=== PATIENT | male | born 1960 | race Caucasian/White ===

== ENCOUNTER 2021-05-11 05:22 | Inpatient (IN) ==
--- NOTE | 2021-04-20 16:56 | Anesthesiology Consultation ---
Date of Service April 20, 2021 Assessment & Plan (1) Encounter for pre-operative examination: Chart Review Chart Review: Acceptable Risk for Surgery (pending preop Covid testing resutls ) and Patient NOT seen in Pre Admission Testing - Check BSG AM DOS - Check coags AM DOS -Discussed with Dr. Radford- patient follows routinely with cardio and vascular- no acute issues. Had recent ECHO 2020 and cardiac cath in 2019 that showed no significant changes. Patient may proceed with surgery from anesthesia standpoint Per nursing assessment 04/20/2021, patient denies any recent travel. No known Covid infection in the past 90 days. Patient vaccinated for Covid. No known Covid positive contacts or Covid related symptoms. Preop Covid testing scheduled 04/26/21 at [place]= will await results Last seen by cardiology 12/22/2020 = seen for follow-uppatient with history of CAD and ischemic cardiomyopathy. Also with ascending aortic dilation/dilation aortic root. Stable cardiac symptoms. Continue current medications. Patient on appropriate medical therapies including ASA, Plavix (for venous stents), and Xarelto for anticoagulation due to DVT (has since changed to Coumadin). Anastrozole Bumex for CHFshe appears euvolemic after recent titration of diuretic. Also on carvedilol and statin. Repeat echocardiogram in 1 year. BP controlled. Last seen by vascular surgery 10/29/2020 = patient had placement of right common iliac venous stent 10/01/2020 to prevent the previously placed venous stent from occluding. S/P bilateral CIV stenting ([id number]), and REIV stenting ([id number]) 08/2019 in [place]. Follow-up in 1 year with CTV. Continue anticoagulation. Will need lifelong anticoagulation. Advised zipper compression. Given information on lymphedema clinic to obtain compression garments. History Surgery Operation Date: 04/29/21 09:55 Proposed Procedures p Open Removal of Infected Mesh, Open Ventral Hernia Repair with Ibiological Mesh, Surgery as Needed - Tavares Tejeda, Height/Weight Height: 6 ft 6 in Weight: 168.736 kg Allergies Allergy/AdvReac Type Severity Reaction Status Date / Time piperacillin [From Zosyn] Allergy fever and Verified 04/20/21 14:39 chills tazobactam [From Zosyn] Allergy fever and Verified 04/20/21 14:39 chills Medications Home Medications Medication Instructions Recorded Confirmed Last Taken atorvastatin 80 mg tablet 80 mg PO QAM 03/25/21 04/20/21 Unknown carvedilol 25 mg tablet 25 mg PO BID 03/25/21 04/20/21 Unknown clopidogrel 75 mg tablet 75 mg PO QAM 03/25/21 04/20/21 Unknown ferrous sulfate 325 mg (65 mg 325 mg PO BID 03/25/21 04/20/21 Unknown iron) tablet (Feosol) finasteride 1 mg tablet 1 mg PO QAM 03/25/21 04/20/21 Unknown losartan 50 mg tablet 50 mg PO QAM 03/25/21 04/20/21 Unknown ltbufwan-nna-pqgkc acid 0.4 1 tab PO DAILY 03/25/21 04/20/21 Unknown mg-lycopene 300 mcg-lutein 250 mcg tablet (Centrum Silver) potassium chloride 10 mEq 10 meq PO QAM 03/25/21 04/20/21 Unknown capsule,extended release tamsulosin 0.4 mg capsule 0.4 mg PO QAM 03/25/21 04/20/21 Unknown bumetanide 1 mg tablet 1.5 mg PO QAM tab 04/07/21 04/20/21 Unknown doxycycline hyclate 100 mg capsule 100 mg PO BID 14 Days #28 cap 04/07/21 04/20/21 Unknown gabapentin 300 mg capsule 300 mg PO BID cap 04/07/21 04/20/21 Unknown levothyroxine 200 mcg capsule 200 mcg PO QAM 04/07/21 04/20/21 Unknown levothyroxine 25 mcg capsule 25 mcg PO QAM 04/07/21 04/20/21 Unknown nystatin 100,000 unit/gram topical 1 applic TOPICAL DAILY #60 g 04/07/2104/20 Unknown powder warfarin 2.5 mg tablet 2.5 mg PO DAILY tab 04/07/21 04/20/21 Unknown Past Medical History Medical History (Updated 04/21/21 @ 09:46 by Siobhan Allred PA-C) Borderline type 2 diabetes mellitus Hgb A1C 6.5 on 02/26/21 BPH (benign prostatic hyperplasia) CAD (coronary artery disease) Had cardiac cath- was told he had old IN with small vessel (2014) and medication management recommended per cardio records Did have repeat cardiac cath 2020 that showed no significant changes from 2015- medical management still recommended CHF (congestive heart failure) Ischemic CM per records EF ranging 30-45% since 2013 EF improved to 50-54% with 2020 ECHO Chronic kidney disease Stage 3 H/O deep venous thrombosis 2017 (complication from immobility from surgery)-- bilateral LE and takes warfarin Hyperlipemia Per records Hypertension Per records Hypothyroidism JOSE on CPAP Per records Paralysis Temporary to right side secondary to cervical spine surgery in 2017 Post op complications included decutitus ulcer, colostomy (later reversed), immobility caused right LE DVT (IVC filter placed- later removed) PVD (peripheral vascular disease) S/p right common iliac [place] venous stent 10/01/20 S/P bilateral CIV stenting ([id number]), and REIV stenting ([id number]) 08/2019 in [place] Past Family History Family History Mother Clotting disorder Diabetes Hypertension Father Diabetes Hypertension Other Coronary heart disease Past Surgical History Surgical History H/O colonoscopy 2019 History of colostomy 2017 - due to ulcer History of colostomy reversal 2019 History of gastric surgery hx of vertical banded gastroplasty History of incisional hernia repair Incisional hernia repair with Ventrio mesh 15x25.7cm and Biologic integra 10x12.5cm as a layered mesh Ventrio first, then Integra. (2019) History of intravascular stent placement 2017 dvt IVC filter and then filter was removed Previous back surgery 2017 discectomy fusion one internal and then posterior fusion Social History Smoking Status: Never smoker Do You Dip or Chew Tobacco: No Hx Alcohol Use: Yes alcohol intake frequency: holidays/special occasions only Hx Substance Use: No substance use type: does not use Testing Laboratory Results 03/16/21= WBC: 9.13 H/H: 11.9/38.1 PLATELETS: 230 SODIUM: 141 POTASSIUM: 4.2 CHLORIDE: 103 CO2: 27 BUN: 16 CREATININE: 1.5 GLUCOSE: 106 GFR: 51.1 Electrocardiogram Date: 08/27/20 Sinus rhythm with occasional PVCs at 63 bpm. Otherwise normal EKG per cardio. Echocardiogram Date: 10/06/20 EF: 50-54% LV Function: normal RWMA: + none Other Findings: + LVH (Moderate/concentric) and + diastolic dysfunction (Grade 1) LV cavity is mildly dilated. RV poorly visualizedhoweverappears mildly dilated in limited views. RV systolic function is normal. Poorly visualized valvular anatomy without significant stenosis or regurgitation. Aortic root moderately enlarged at 4.5 cm. Ascending aorta is mildly enlarged at 4.2 cm. Cardiac Catheterization Date: 10/30/19 LVEF 35-40%. Moderate diffuse hypokinesis of left ventricle. 100% stenosis of mid vessel lesion of left circumflex. Cath not significantly changed from 2015. LAD, ramus and RCA show no significant issues. Ectasia of distal left main. Distal circumflex is occluded as as it was in 2015CAD does not explain the cardiomyopathywe will plan for medical therapy for CHF.
[~2021-05-11 05:22] MED LIST: CLINDAMYCIN IV SCH; DEXTROSE 5% IV SCH; GENERAL ORDER PROBLEM SCH; HEPARIN SOD 5,000 UNIT/0.5 ML VIAL SQ SCH; LR 15ML/HR IV SCH
[2021-05-11] MEDS ORDERED: HEPARIN SOD 5,000 UNIT/0.5 ML VIAL SC SCH (06:00)
[2021-05-11] MEDS ORDERED: DEXTROSE 5% IV SCH (06:00)
[2021-05-11] MEDS ORDERED: CLINDAMYCIN IV SCH (06:00)
[2021-05-11] MEDS ORDERED: LR 15ML/HR IV SCH (06:00)
[2021-05-11 06:12] LABS: INR 1.1 (0.9-1.1); Partial Thromboplastin Ratio 1.1; Prothrombin Time 10.7 Seconds (9.0-12.0)
[2021-05-11] MEDS ORDERED: ROCURONIUM BROMIDE 10 MG/ML 5 ML VIAL IV ONE ×6 (06:50→08:47)
[2021-05-11] MEDS ORDERED: ONDANSETRON INJ 2 MG/ML 2 ML VIAL ONE (06:50)
[2021-05-11] MEDS ORDERED: LIDOCAINE 2% 2 ML VIAL/AMP(20MG/ML) INFIL ONE (06:50)
[2021-05-11] MEDS ORDERED: fentaNYL citrate 100 MCG/2 ML VIAL ONE (06:50)
[2021-05-11] MEDS ORDERED: PROPOFOL IV EMULSION 10 MG/ML 20 ML VIAL IV ONE (06:50)
[2021-05-11] MEDS ORDERED: KETAMINE 50 MG/5 ML SYRINGE ONE (06:51)
[2021-05-11] MEDS ORDERED: KETOROLAC 30 MG/ML VIAL IV PRN ×2 (07:05→12:59)
[2021-05-11] MEDS ORDERED: ONDANSETRON INJ 2 MG/ML 2 ML VIAL IV PRN (07:05)
[2021-05-11] MEDS ORDERED: ATROPINE SULFATE 0.1 MG/ML 10ML SYR IV PRN (07:05)
--- NOTE | 2021-05-11 07:05 | History & Physical Report ---
Date of Service May 11, 2021 Assessment & Plan (1) Infected prosthetic mesh of abdominal wall: Plan: Clearly this needs to be surgically explanted and an abdominal wall reconstruction. He is extremely high risk because of his medical comorbidities and we discussed this at length. He fully understands this. Risk would include bleeding, infection, injury to another structures such as bowel, recurrent hernia, DVT, PE, WA, CVA etc. Following our discussion I answered all of his questions. We will proceed today with explant of old mesh with abdominal wall reconstruction possible component separation. Encounter type: initial encounter Qualified Code(s): T85.79XA - Infection and inflammatory reaction due to other internal prosthetic devices, implants and grafts, initial encounter (2) Diabetes: (3) Ischemic cardiomyopathy: (4) Morbid obesity: History of Present Illness Primary Care Provider: Amparo Fairchild MD Bobby has had somewhat of a blade surgical medical course of the last several years. He had complications from a spine surgery several years ago in [place]. Ultimately this required a sacral ulcer requiring a colostomy and subsequent reversal. He then had a large incisional hernia that was repaired with mesh in [place] as well. 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 It is failed conservative management and he is here today for definitive surgical intervention. There is been no changes in his health since I had last seen him in the office in March. Allergies Allergy/AdvReac Type Severity Reaction Status Date / Time piperacillin [From Zosyn] Allergy fever and Verified 05/11/21 05:46 chills tazobactam [From Zosyn] Allergy fever and Verified 05/11/21 05:46 chills Home Medications Medication Instructions Recorded Confirmed Type atorvastatin 80 mg tablet 80 mg PO QAM 03/25/21 05/11/21 History carvedilol 25 mg tablet 25 mg PO BID 03/25/21 05/11/21 History clopidogrel 75 mg tablet 75 mg PO QAM 03/25/21 05/11/21 History ferrous sulfate 325 mg (65 mg 325 mg PO BID 03/25/21 05/11/21 History iron) tablet (Feosol) finasteride 1 mg tablet 1 mg PO QAM 03/25/21 05/11/21 History losartan 50 mg tablet 50 mg PO QAM 03/25/21 05/11/21 History utioqcdx-ifz-dmuup acid 0.4 1 tab PO DAILY 03/25/21 05/11/21 History mg-lycopene 300 mcg-lutein 250 mcg tablet (Centrum Silver) potassium chloride 10 mEq 10 meq PO QAM 03/25/21 05/11/21 History capsule,extended release tamsulosin 0.4 mg capsule 0.4 mg PO QAM 03/25/21 05/11/21 History bumetanide 1 mg tablet 1.5 mg PO QAM tab 04/07/21 05/11/21 History doxycycline hyclate 100 mg capsule 100 mg PO BID 14 Days #28 cap 04/07/21 05/11/21 Rx gabapentin 300 mg capsule 300 mg PO BID cap 04/07/21 05/11/21 History levothyroxine 200 mcg capsule 200 mcg PO QAM 04/07/21 05/11/21 History levothyroxine 25 mcg capsule 25 mcg PO QAM 04/07/21 05/11/21 History nystatin 100,000 unit/gram topical 1 applic TOPICAL DAILY #60 g 04/07/21 05/11/21 Rx powder warfarin 2.5 mg tablet 2.5 mg PO DAILY tab 04/07/21 05/11/21 History enoxaparin 150 mg/mL subcutaneous 150 mg SUBCUT Q12H 05/11/21 05/11/21 History syringe (Lovenox) Past Med/Surg History Medical History Borderline type 2 diabetes mellitus Hgb A1C 6.5 on 02/26/21 BPH (benign prostatic hyperplasia) CAD (coronary artery disease) Had cardiac cath- was told he had old [place] with small vessel (2014) and medication management recommended per cardio records Did have repeat cardiac cath 2019 that showed no significant changes from 2014- medical management still recommended CHF (congestive heart failure) Ischemic CM per records EF ranging 30-45% since 2013 EF improved to 50-54% with 2020 ECHO Chronic kidney disease Stage 3 H/O deep venous thrombosis 2016 (complication from immobility from surgery)-- bilateral LE and takes warfarin Hyperlipemia Per records Hypertension Per records Hypothyroidism JOSE on CPAP Per records Paralysis Temporary to right side secondary to cervical spine surgery in 2017 Post op complications included decutitus ulcer, colostomy (later reversed), immobility caused right LE DVT (IVC filter placed- later removed) PVD (peripheral vascular disease) S/p right common iliac [place] venous stent 10/01/20 S/P bilateral CIV stenting ([id number]), and REIV stenting ([id number] mm) 08/2019 in [place] Surgical History H/O colonoscopy 2018 History of colostomy 2017 - due to ulcer History of colostomy reversal 2018 History of gastric surgery hx of vertical banded gastroplasty History of incisional hernia repair Incisional hernia repair with Ventrio mesh 15x25.7cm and Biologic integra 10x12.5cm as a layered mesh Ventrio first, then Integra. (2019) History of intravascular stent placement 2017 dvt IVC filter and then filter was removed Previous back surgery 2017 discectomy fusion one internal and then posterior fusion Family History Mother Clotting disorder Diabetes Hypertension Father Diabetes Hypertension Other Coronary heart disease Social History (Updated 04/07/21 @ 09:31 by Angela Tafoya RN) Smoking Status: Never smoker Second Hand Exposure: No; Do You Dip or Chew Tobacco: No; Tobacco Cessation Education Requested by Patient: No Hx Alcohol Use: No Hx Substance Use: No Preferred Language: Yakut Communication Ability: Effective 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 Required: No Beliefs That Will Affect Care: None Current Living Situation: Family current occupational status: disabled How many Children do You have: 0 Other Information That Helps Us Care for You: No Feels Safe at Home: Yes Safety Concerns: Feels Safe At This Time Sunscreen Use: No Review of Systems All systems reviewed & are unremarkable except as noted in HPI & below Physical Exam Constitutional: WD/WN, vitals as above no acute distress and not ill appearing Eyes: PERRL, conjunctivae normal, anicteric sclerae EOM intact bilaterally ENMT: external ear and nose normal, oropharynx normal Ears: no hearing impairment Neck: trachea midline, no thyromegaly Respiratory: normal respiratory effort; no respiratory distress and does not use accessory muscles Cardiovascular: Rate/Rhythm: regular rate and regular rhythm Gastrointestinal (Abdomen): Morbidly obese. Soft. Nontender. Central fistulous tract with bloody drainage. Small amount of surrounding cellulitis consistent with a yeast dermatitis. Large midline incision. Skin: no rashes, warm and dry Psychiatric: Orientation: alert, oriented x 3 and cooperative Results & Data ([place]) Vital Signs (Past 12 Hours) Vital Signs Temp Pulse Resp BP Pulse Ox 05/11/21 05:49 37.3 C 66 18 129/79 94
[2021-05-11] MEDS ORDERED: HYDROmorphone INJ 2 MG/ML SYR/VIAL ONE (07:42)
[2021-05-11] MEDS ORDERED: ePHEDrine sulfate 50 MG/ML SYR ONE (08:47)
[2021-05-11] MEDS ORDERED: ePHEDrine sulfate 50 MG/ML AMP ONE (09:17)
[2021-05-11] MEDS ORDERED: TISSEEL FIBRIN SEALANT 10ML TOP ONE (09:17)
[2021-05-11] MEDS ORDERED: NEOSTIGMINE METHYLSULFATE 1 MG/ML 10ML VIAL ONE (11:11)
[2021-05-11] MEDS ORDERED: GLYCOPYRROLATE 0.2 MG/ML VIAL ONE (11:11)
--- NOTE | 2021-05-11 11:18 | Operative Report ---
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 After successful intubation a Steele catheter was placed. The abdomen was shaved and sterilely prepped and draped in usual fashion. I began with a 10 blade scalpel and made an elliptical incision around his prior midline incision. This went from the subxiphoid region around his umbilicus and down to the suprapubic region. We then carried this incision down using cautery traction and countertraction. We readily encountered his onlay mesh which was secured with Prolene sutures. It was a rather tedious dissection but we were able to continue to use traction/ countertraction to remove the skin/old scar as well as old Prolene sutures and onlay mesh. Once we had this off we passed this to the back table. At the superior pole of his underlay mesh we were able to gently elevate the peritoneum and enter the abdominal cavity. At the superior pole there were a fair amount of adhesions to the undersurface of the mesh. These primarily involve the omentum and small bowel. We used sharp scissor lysis and blunt finger fractionation to take down the small bowel. There was 1 loop that was tightly adhesed necessitating cutting a portion of the serosa. I then oversewed this serosa using 3-0 silk. The distal portion of the underlay mesh did not have as many adhesions. It was still a tedious dissection using traction countertraction, blunt finger fractionation and small amounts of cautery and sharp scissor lysis. Eventually we were able to take down all of the bowel adhesions as well as omentum. We essentially performed a component separation of the abdominal musculature as we went. We had to take a portion of the fascia/abdominal wall which was tightly adhesed to the mesh. Eventually we were able to get the underlay mesh as well as securing sutures which were 0 Prolene removed in 1 large piece. We were able to use a small amounts of cautery and blunt dissection to separate the rectus from the obliques in order to be able to obtain a primary closure. We felt this would be the best technique considering the adhesions to the undersurface of the fascia. Once we performed the component separation we then thoroughly irrigated the abdomen and wound. I placed some #1 PDS internal retention sutures. There were 4 of these total. Once I had the retention sutures secured we then used #1 PDS in simple interrupted fashion to primarily close the large defect. Once the fascia was closed we again thoroughly irrigated soft tissue and the anterior portion of the fascia. We then used a 20 cm x 20 cm absorbable Ovitex mesh as an onlay. It was secured with interrupted #1 PDS sutures. Once we had this secured we had good overlap for several centimeters in all directions. There was also adequate hemostasis. 1 final irrigation was performed. Tisseel sealant was sprayed on all raw surfaces to help prevent hematoma and seroma formation. Once this dried we used a 19 Ricardo drain one on either side brought them out through separate stab incisions in the lower portion of the abdomen one on the right one on the left. These were secured to the skin using 2-0 nylon. The soft tissue was then closed using 0 Vicryl deep layers 2-0 Vicryl for mid layers and skin nikita for the skin. A silver dressing gauze ABD and tape were applied as well as an abd ominal binder. The patient was awakened extubated and transferred recovery in stable condition. My physician internal medicine physician assistant was instrumental through the entire procedure assisting with prepping the patient retraction throughout the tedious dissection fascial closure mesh onlay wound closure and dressing placement. I attest to the content of the Intraoperative Record and any orders documented therein. Any exceptions are noted below.
[2021-05-11] MEDS: HYDROmorphone INJ 1 MG/ML SYRINGE IV PRN ×6 (11:26→12:16)
--- NOTE | 2021-05-11 11:59 | Anesthesiology Progress Note ---
Date of Service May 11, 2021 Anesthesia Post Procedure Vital Signs Vital Signs: Temp Pulse Resp BP Pulse Ox 05/11/21 11:50 54 L 17 122/68 96 05/11/21 11:40 52 L 12 123/71 96 05/11/21 11:30 55 L 16 128/68 90 05/11/21 11:20 57 L 18 118/74 99 05/11/21 11:10 58 L 12 116/60 98 05/11/21 11:04 36.8 C 61 14 122/62 100 05/11/21 05:49 37.3 C 66 18 129/79 94 Pain Intensity Abdomen: Pain Intensity: 3 Transfer of Care Handoff Completed per policy Notes Mental Status: alert / awake / arousable Patient Amnestic to Procedure: Yes Nausea / Vomiting: adequately controlled Pain: adequately controlled Airway Patency, RR, SpO2: stable & adequate BP & HR: stable & adequate Hydration State: stable & adequate Anesthetic Complications: no major complications apparent
[2021-05-11] MEDS ORDERED: HYDROmorphone PCA 30 MG/30 ML IV PRN (12:59)
[2021-05-11] MEDS ORDERED: DEXTROSE 50% 50 ML SYRINGE IV PRN (12:59)
[2021-05-11] MEDS ORDERED: NALOXONE HCL 0.4 MG/1 ML VIAL/CARP IV PRN (12:59)
[2021-05-11] MEDS ORDERED: GLUCAGON FOR INJ 1 MG VIAL SQ PRN (12:59)
[2021-05-11] MEDS ORDERED: GLUCOSE 40% GEL 15 GM TUBE PO PRN (12:59)
[2021-05-11] MEDS ORDERED: LORazepam 0.5 MG/1 ML VIAL IV PRN (12:59)
[2021-05-11] MEDS ORDERED: GLUCOSE 10 TABS/TUBE PO PRN (12:59)
[2021-05-11] MEDS ORDERED: CARBOHYDRATES FOR HYPOGLYCEMIA PO PRN (12:59)
[2021-05-11] MEDS: NSS + 20MEQ KCL 20 MEQ/1,000 ML BAG IV SCH ×2 (13:35→22:25)
[2021-05-11] MEDS: ACETAMINOPHEN 1,000 MG/100 ML VIAL IV SCH ×2 (14:17→22:01)
[2021-05-11] MEDS: FLUCONAZOLE 200 MG/100 ML BAG IV SCH (14:50)
--- NOTE | 2021-05-11 15:17 | Consultation ---
Date of Consultation May 11, 2021 Assessment & Plan (1) Infected prosthetic mesh of abdominal wall: This is a 60yo M with a PMH of CAD, history of [place], ischemic cardiomyopathy, hypothyroidism, hypertension, CKD 3, BPH, recently diagnosed type 2 diabetes is diet-controlled, JOSE on CPAP, chronic bilateral lower extremity DVTs on Coumadin and other medical problems as below who is POD#0 s/p infected abdominal Wall Exploration with Explant of Old Mesh, Component Separation, Abdominal Wall Reconstruction with Biological Mesh by Dr. Tejeda. Per general surgery for pain control, wound care, diet and activities Holding Lovenox and coumadin for now, plan to resume both tomorrow per disc ussion with Bill (2) Diabetes mellitus, type II: Recent a1c 6.5 in February 2021, diet controlled SSI while in-patient [facility] AC HS (3) Chronic deep vein thrombosis (DVT): Holding Lovenox and coumadin for now, plan to resume both tomorrow per discussion with Bill (4) CHF (congestive heart failure): History of [place], ischemic cardiomyopathy Holding Bumex dose for tomorrow morning Strict I&Os, daily weight, low sodium diet Reassess volume status in AM (5) CAD (coronary artery disease): Stable Continue carvedilol, statin Plavix held in postop setting (6) Hypothyroidism: Continue levothyroxine (7) Iliac vein stenosis, left: Plavix held in postop setting. Per gen surg to resume when surgically appropriate. Continue statin (8) JOSE on CPAP: CPAP HS PCP: Devorah Dispo: Admitted to med/surg, per ortho Patient seen in collaboration with Dr. Patiño. Please see addendum. Supervising Physician Co-Signing Physician Notes Patient is a 60-year-old male with history of coronary artery disease, CKD stage III, diabetes mellitus, obstructive sleep apnea and other medical problems was consulted for postop medical management after having abdominal wall exploration with explant of old mesh, component separation, abdominal wall reconstruction with biological mesh placement and electrolysis by today. Patient states having some abdominal discomfort at surgical site but otherwise feels well. Denies any chest pain, shortness of breath, dizziness, nausea. Offers no other complaints. On exam patient is obese, no apparent distress, normocephalic atraumatic, EOMI, normal breath sounds, clear to auscultation, S1-S2, no murmur, trace pedal edema, abdomen soft,+ mild tenderness,+ abdominal binder, could not appreciate bowel sounds through the binder, alert, awake, oriented, grossly no focal deficits. Patient is consulted for postop medical management. Wound care, pain control, diet as per primary team. Monitor for postop anemia. Continue PT OT when appropriate. Hold diuretics for today. Monitor volume status and resume diuretics as able. Agree with insulin therapy while hospitalized to manage diabetes mellitus. H/O DVT: Plan to hold Lovenox and Coumadin for today and resume tomorrow as recommended by surgery. I personally reviewed the record. Patient is interviewed and examined at bedside. Patient's care is coordinated with Manjula Marcus PA-C. Please refer to the documentation above for details of patient's presentation and for discussion of other issues. History of Present Illness Reason for Consultation: post op med mgmt Attending Physician: Tavares Tejeda, DO History of Present Illness This is a 60yo M with a PMH of CAD, history of [place], ischemic cardiomyopathy, hypothyroidism, hypertension, CKD 3, BPH, recently diagnosed type 2 diabetes is diet-controlled, JOSE on CPAP, chronic bilateral lo wer extremity DVTs on Coumadin and other medical problems as below who is POD#0 s/p infected abdominal Wall Exploration with Explant of Old Mesh, Component Separation, Abdominal Wall Reconstruction with Biological Mesh by Dr. Tejeda. Patient is feeling well postoperatively. Endorses minimal surgical site discomfort. No fever, chills, nausea or vomiting. Has not yet tried clears at bedside. No headache, lightheadedness, chest pain, shortness of breath, dysuria, diarrhea or constipation. Plavix and Coumadin held preoperatively. Received 2-1/2 days of Lovenox bridging with last dose yesterday morning. Diabetes is diet controlled with most recent A1c of 6.5 in February 2021. Brought his own CPAP to use at bedtime. Receives primary care from Dr. Fairchild. Allergies Allergy/AdvReac Type Severity Reaction Status Date / Time piperacillin [From Zosyn] Allergy Mild fever and Verified 05/11/21 13:27 chills tazobactam [From Zosyn] Allergy Mild fever and Verified 05/11/21 13:27 chills Home Medications Medication Instructions Recorded Confirmed Type atorvastatin 80 mg tablet 80 mg PO QAM 03/25/21 05/11/21 History carvedilol 25 mg tablet 25 mg PO BID 03/25/21 05/11/21 History clopidogrel 75 mg tablet 75 mg PO QAM 03/25/21 05/11/21 History ferrous sulfate 325 mg (65 mg 325 mg PO TID 03/25/21 05/11/21 History iron) tablet (Feosol) losartan 50 mg tablet 50 mg PO QAM 03/25/21 05/11/21 History kafpubrb-sff-kiayt acid 0.4 1 tab PO DAILY 03/25/21 05/11/21 History mg-lycopene 300 mcg-lutein 250 mcg tablet (Centrum Silver) potassium chloride 10 mEq 10 meq PO QAM 03/25/21 05/11/21 History capsule,extended release tamsulosin 0.4 mg capsule 0.4 mg PO QAM 03/25/21 05/11/21 History bumetanide 1 mg tablet 1.5 mg PO QAM tab 04/07/21 05/11/21 History doxycycline hyclate 100 mg capsule 100 mg PO BID 14 Days #28 cap 04/07/21 05/11/21 Rx gabapentin 300 mg capsule 300 mg PO BID cap 04/07/21 05/11/21 History levothyroxine 200 mcg capsule 200 mcg PO QAM 04/07/21 05/11/21 History nystatin 100,000 unit/gram topical 1 applic TOPICAL DAILY #60 g 04/07/21 05/11/21 Rx powder warfarin 2.5 mg tablet 2.5 mg PO DAILY tab 04/07/21 05/11/21 History enoxaparin 150 mg/mL subcutaneous 150 mg SUBCUT Q12H 05/11/21 05/11/21 History syringe (Lovenox) finasteride 5 mg tablet 5 mg PO DAILY 05/11/21 05/11/21 History levothyroxine 50 mcg tablet 50 mcg PO DAILY 05/11/21 05/11/21 History methocarbamol 500 mg tablet 500 mg PO DAILY PRN 05/11/21 05/11/21 History Patient History Medical History (Updated 05/11/21 @ 15:39 by Manjula Marcus PA-C) BPH (benign prostatic hyperplasia) CAD (coronary artery disease) Had cardiac cath- was told he had old WA with small vessel (2014) and medication management recommended per cardio records Did have repeat cardiac cath 2020 that showed no significant changes from 2015- medical management still recommended CHF (congestive heart failure) Ischemic CM per records EF ranging 30-45% since 2013 EF improved to 50-54% with 2020 ECHO Chronic deep vein thrombosis (DVT) Chronic kidney disease Stage 3 Diabetes mellitus, type II Dyslipidemia H/O deep venous thrombosis 2016 (complication from immobility from surgery)-- bilateral LE and takes warfarin Hypertension Per records Hypothyroidism JOSE on CPAP Per records 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 Tejeda 05-11-2021 H/O colonoscopy 2018 History of colostomy 2017 - due to ulcer History of colostomy reversal 2019 History of gastric surgery hx of vertical banded gastroplasty History of incisional hernia repair Incisional hernia repair with Ventrio mesh 15x25.7cm and Biologic integra 10x12.5cm as a layered mesh Ventrio first, then Integra. (2019) History of intravascular stent placement 2017 dvt IVC filter and then filter was removed Previous back surgery 2017 discectomy fusion one internal and then posterior fusion Family History Mother Clotting disorder Diabetes Hypertension Father Diabetes Hypertension Other Coronary heart disease Social History Smoking Status: Never smoker Second Hand Exposure: No; Do You Dip or Chew Tobacco: No; Tobacco Cessation Education Requested by Patient: No Hx Alcohol Use: No Hx Substance Use: No Preferred Language: Syrian Communication Ability: Effective Sql Engineer Required: No Beliefs That Will Affect Care: None Current Living Situation: Family current occupational status: disabled How many Children do You have: 0 Other Information That Helps Us Care for You: No Feels Safe at Home: Yes Safety Concerns: Feels Safe At This Time Sunscreen Use: No Assistive Devices: CPAP and Walker Review of Systems Review of Systems: At least ten systems reviewed and negative except as noted in the HPI. Physical Exam Physical Exam: General Appearance: WD/WN, vitals as above, NAD, sitting up in bed, pleasant, conversing easily Head: normocephalic, atraumatic Eyes: normal inspection, PERRL, conjunctivae normal, anicteric sclerae ENT: external ear and nose normal, oropharynx normal Neck: normal visual inspection, trachea midline, no thyromegaly Respiratory: normal respiratory effort, lungs clear to auscultation, no wheeze, rales, rhonchi. No accessory muscle use Cardiovascular: regular rate, rhythm, no murmur, normal peripheral pulses, no BLE edema. Vessels: no JVD Chest: normal inspection of chest Abdomen/GI: normal bowel sounds, soft, abdominal binder in place, drain visualized, incisional TTP, no hepatosplenomegaly Extremities/Musculoskeletal: no cyanosis or clubbing, extremities motor strength 5/5 Neurologic: PERRL, EOMI, accommodation nl, no face palsy, no dysarthria, CN's II-XI intact bilaterally and moves all extremities Psychiatric: A+Ox3, euthymic affect Skin: no rashes, normal color, warm/dry Results & Data ([facility]) Vital Signs (Past 12 Hours) Vital Signs Temp Pulse Resp BP BP Pulse Ox 05/11/21 13:55 36.4 C L 56 L 17 129/70 94 05/11/21 13:25 36.6 C 59 L 17 131/66 94 05/11/21 12:55 37 C 56 L 18 131/71 95 05/11/21 12:40 57 L 19 122/68 94 05/11/21 12:30 50 L 12 123/65 94 05/11/21 12:20 55 L 15 121/66 95 05/11/21 12:10 53 L 16 127/70 95 05/11/21 12:00 36.5 C 56 L 15 126/76 96 05/11/21 11:50 54 L 17 122/68 96 05/11/21 11:40 52 L 12 123/71 96 05/11/21 11:30 55 L 16 128/68 90 05/11/21 11:20 57 L 18 118/74 99 05/11/21 11:10 58 L 12 116/60 98 05/11/21 11:04 36.8 C 61 14 122/62 100 05/11/21 05:49 37.3 C 66 18 129/79 94 (1) Infected prosthetic mesh of abdominal wall Encounter type: initial encounter Qualified Code(s): T85.79XA - Infection and inflammatory reaction due to other internal prosthetic devices, implants and grafts, initial encounter
[2021-05-11] MEDS: CLINDAMYCIN 900 MG in DEXTROSE 5% 50 ML IV SCH (16:14)
[2021-05-11] MEDS: WARFARIN SOD 2.5 MG TAB PO SCH (16:52)
[2021-05-11] MEDS: INSULIN ASPART 100 UNITS/ML 3 ML PEN SC SCH ×3 (18:07→23:08)
[2021-05-11] MEDS: SODIUM CHLORIDE 0.9% 1000ML 1,000 ML IV SCH (18:07)
[2021-05-11] MEDS ORDERED: COUGH DROP (SUGAR FREE) LOZ 24 LOZ/1 BOX BUCCAL PRN (18:23)
[2021-05-11] MEDS: GABAPENTIN 300 MG CAP PO SCH (20:31)
[2021-05-11] MEDS: carvediloL 25 MG TAB PO SCH (20:31)
[2021-05-12] MEDS: CLINDAMYCIN 900 MG in DEXTROSE 5% 50 ML IV SCH ×4 (00:22→23:37)
[2021-05-12] MEDS: NSS + 20MEQ KCL 20 MEQ/1,000 ML BAG IV SCH ×2 (06:15→23:37)
[2021-05-12] MEDS: ACETAMINOPHEN 1,000 MG/100 ML VIAL IV SCH ×3 (06:15→22:29)
[2021-05-12] MEDS: LEVOTHYROXINE SODIUM 200 MCG TABLET PO SCH (06:20)
[2021-05-12] MEDS: LEVOTHYROXINE SODIUM 50 MCG TABLET PO SCH (06:20)
[2021-05-12] MEDS ORDERED: LEVOTHYROXINE SODIUM 50 MCG TABLET PO SCH (06:30)
[2021-05-12] MEDS ORDERED: LEVOTHYROXINE SODIUM 25 MCG TABLET PO SCH (06:30)
[2021-05-12 06:37] LABS: Hematocrit (blood only) 30.2 % (42-52); Hemoglobin 9.2 g/dL (14.0-18.0); Mean Corpuscular Hemoglobin 28.1 pg (25-34); Mean Corpuscular Hgb Conc 30.5 g/dL (32-36); Mean Corpuscular Volume 92.4 fL (80-100); Mean Platelet Volume 10.4 fL (7.4-10.4); Platelet Count 196 K/uL (130-400); RDW Coefficient of Variation 17.5 % (11.5-14.5); Red Blood Count 3.27 M/uL (4.7-6.1); White Blood Count 12.61 K/uL (4.8-10.8)
[2021-05-12 07:15] LABS: Albumin Level 2.6 gm/dl (3.4-5.0); BUN Creatinine Ratio 18.2 (10-20); Creatinine Clr Calc Pharmacy 115.6 ml/min; Est GFR (African American) 75.5 ml/min; Est GFR (Non-African American) 65.1 ml/min; Potassium 4.3 mmol/L (3.5-5.1)
[2021-05-12 07:25] LABS: Albumin Globulin Ratio 0.7 (0.9-2); Bilirubin,Total 0.5 mg/dl (0.2-1); Globulin 3.9 gm/dl (2.5-4.0); Thyroid Stimulating Hormone 0.776 uIu/ml (0.300-4.500); Total Protein 6.5 gm/dl (6.4-8.2)
[2021-05-12 07:31] LABS: Estimated Average Glucose 134 mg/dl; Hemoglobin A1C 6.3 % (4.5-5.6)
[2021-05-12] MEDS ORDERED: PNEUMOCOCCAL Polysaccharide Vaccine 25mcg/0.5mL vial/Syr IM ONE (07:45)
--- NOTE | 2021-05-12 08:27 | Surgery Progress Note ---
Date of Service May 12, 2021 Assessment & Plan (1) Infected prosthetic mesh of abdominal wall: Plan: POD 1 removal infected mesh, repair with biomesh seen with Nikhil Michelle can restart coumadin resume Lovenox advance diet decrease IVF cont IV abx already on Flomax from home, will continue to monitor retention as above. doing quite well. restart coumadin. will monitor LAINEY output and H/H prior to restarting plavix tomorrow. pain control adequate. Admission and Anticipated Discharge Date Admission Date: May 11, 2021 Subjective ambulated halls last night, tolerating clears, pain managed, straight cath last night Physical Exam Gastrointestinal (Abdomen): Inspection/Auscultation: + abdominal surgical incision (dressing intact) and + abdominal surgical drain present (LAINEY(1) 20 cc, LAINEY (2) 15cc) Results & Data ([facility]) Vital Signs (Past 12 Hours) Vital Signs Temp Pulse Resp BP Pulse Ox 05/12/21 08:18 36.6 C 60 16 98/68 L 96 05/12/21 03:30 36.8 C 53 L 18 101/59 L 94 05/11/21 23:52 37 C 62 18 104/60 92 05/11/21 20:29 94 H 14 122/75 95 PG Care Time/CCT Total # of Minutes Spent Total Time Spent with Patient: Total time spent is greater than 50% in coordination of care (as documented) at patient's floor/unit and/or counseling patient: Coding Level of Care Code None Diagnoses Infected prosthetic mesh of abdominal wall T85.79XA Encounter type: initial encounter (1) Infected prosthetic mesh of abdominal wall Encounter type: initial encounter Qualified Code(s): T85.79XA - Infection and inflammatory reaction due to other internal prosthetic devices, implants and grafts, initial encounter
[2021-05-12] MEDS: ATORVASTATIN 40 MG TAB PO SCH (08:38)
[2021-05-12] MEDS: carvediloL 25 MG TAB PO SCH ×2 (08:39→21:45)
[2021-05-12] MEDS: GABAPENTIN 300 MG CAP PO SCH ×2 (08:39→21:45)
[2021-05-12] MEDS: TAMSULOSIN HCL 0.4 MG CAP PO SCH (08:40)
[2021-05-12] MEDS: FINASTERIDE 5 MG TAB PO SCH (08:41)
[2021-05-12] MEDS ORDERED: BUMETANIDE 1 MG TAB PO SCH (09:00)
[2021-05-12] MEDS ORDERED: LOSARTAN POTASSIUM 50 MG TAB PO SCH (09:00)
[2021-05-12] MEDS: INSULIN ASPART 100 UNITS/ML 3 ML PEN SC SCH ×4 (09:54→22:44)
[2021-05-12] MEDS: ENOXAPARIN 150 MG/ML SYR SQ SCH ×2 (10:20→21:45)
[2021-05-12] MEDS: SODIUM CHLORIDE 0.9% 1000ML 1,000 ML IV SCH (12:27)
[2021-05-12] MEDS: FLUCONAZOLE 200 MG/100 ML BAG IV SCH (14:22)
[2021-05-12] MEDS: WARFARIN SOD 2.5 MG TAB PO SCH (17:56)
--- NOTE | 2021-05-12 18:41 | Hospitalist Progress Note ---
Date of Service May 12, 2021 Assessment & Plan (1) Infected prosthetic mesh of abdominal wall: Plan: per Dr. Patiño's notes: This is a 60yo M with a PMH of CAD, history of [place], ischemic cardiomyopathy, hypothyroidism, hypertension, CKD 3, BPH, recently diagnosed type 2 diabetes is diet-controlled, JOSE on CPAP, chronic bilateral lower extremity DVTs on Coumadin and other medical problems as below who is POD#0 s/p infected abdominal Wall Exploration with Explant of Old Mesh, Component Separation, Abdominal Wall Reconstruction with Biological Mesh by Dr. Tejeda. -- BP on the lower side likely from hypovolemia hold Bumex continue IV fluids -- monitor (2) Diabetes mellitus, type II: Plan: Recent a1c 6.5 in February 2021, diet controlled SSI while in-patient [facility] AC HS (3) Chronic deep vein thrombosis (DVT): Plan: resumed Lovenox and coumadin (4) CHF (congestive heart failure): Plan: History of [place], ischemic cardiomyopathy Holding Bumex , patient on the dry side Strict I&Os, daily weight, low sodium diet (5) CAD (coronary artery disease): Plan: Stable Continue carvedilol, statin Plavix held in postop setting (6) Hypothyroidism: Plan: Continue levothyroxine (7) Iliac vein stenosis, left: Plan: Plavix held in postop setting. Per gen surg to resume when surgically appropriate. Continue statin (8) JOSE on CPAP: Plan: CPAP HS PCP: Devorah Dispo: Admitted to med/surg, per ortho plan of care discussed with patient in detail and at length all questions answered he is understanding, agreeable, comfortable with the plan of care Admission and Anticipated Discharge Date Admission Date: May 11, 2021 Subjective ff up for s/p abdominal wall mesh, etc seen resting in bed, comfortable states pain is much better now no chest pain, dyspnea, dizziness, palpitations, abdominal pain, nausea no other symptoms Review of Systems Review of Systems: all noted and negative except for above Physical Exam Physical Exam: General- oriented x 3, not in distress, speaks in sentences with no effort or accessory muscle use Head- atraumatic Eyes- PERRL, EOMI, anicteric ENT- oropharynx clear Neck- supple, no JVD, no adenopathy, no thyromegaly; carotids +2/2, no bruits appreciated Lungs- clear to auscultation bilaterally, no rales/wheezes Heart- normal rate, regular rhythm; no murmur, no gallop, no rub appreciated Abdomen- normal bowel sounds, nondistended, soft, nontender, no masses or hepatosplenomegaly dressing in place- no bleeding, discharge drain in place with minimal sero sanguinous output Extremities- no pretibial edema, no calf tenderness; peripheral pulses intact Neuro- alert, oriented x 3; CN 2-12 grossly intact; motor 5/5 bilaterally;sensation 100% on all extremities; no other gross focal neurologic deficits Skin- warm & dry Results & Data Results & Data ([facility]) Vital Signs (Past 12 Hours) Vital Signs Temp Pulse Resp BP Pulse Ox 05/12/21 15:14 36.6 C 64 18 112/65 92 05/12/21 11:41 36.7 C 65 16 118/73 92 05/12/21 08:18 36.6 C 60 16 98/68 L 96 all noted and reviewed including below (1) Infected prosthetic mesh of abdominal wall Encounter type: initial encounter Qualified Code(s): T85.79XA - Infection and inflammatory reaction due to other internal prosthetic devices, implants and grafts, initial encounter
[2021-05-13] MEDS: SODIUM CHLORIDE 0.9% 1000ML 1,000 ML IV SCH (01:18)
[2021-05-13] MEDS: ACETAMINOPHEN 1,000 MG/100 ML VIAL IV SCH (05:54)
[2021-05-13] MEDS: LEVOTHYROXINE SODIUM 50 MCG TABLET PO SCH (05:55)
[2021-05-13] MEDS: LEVOTHYROXINE SODIUM 200 MCG TABLET PO SCH (05:55)
[2021-05-13 06:28] LABS: Basophils # (auto) 0.02 K/uL (0-0.2); Basophils % (auto) 0.2 %; Eosinophils # (auto) 0.27 K/uL (0-0.5); Eosinophils % (auto) 2.3 %; Hematocrit (blood only) 31.9 % (42-52); Hemoglobin 9.8 g/dL (14.0-18.0); Immature Granulocytes # (auto) 0.07 K/uL (0.00-0.02); Immature Granulocytes % (auto) 0.6 %; Lymphocytes # (auto) 2.24 K/uL (1.2-3.4); Lymphocytes % (auto) 19.2 %; Mean Corpuscular Hemoglobin 28.2 pg (25-34); Mean Corpuscular Hgb Conc 30.7 g/dL (32-36); Mean Corpuscular Volume 91.9 fL (80-100); Mean Platelet Volume 10.6 fL (7.4-10.4); Monocytes # (auto) 1.01 K/uL (0.11-0.59); Monocytes % (auto) 8.7 %; Neutrophils # (auto) 8.04 K/uL (1.4-6.5); Platelet Count 190 K/uL (130-400); RDW Coefficient of Variation 17.8 % (11.5-14.5); RDW Standard Deviation 59.6 fL (36.4-46.3); Red Blood Count 3.47 M/uL (4.7-6.1); White Blood Count 11.65 K/uL (4.8-10.8)
[2021-05-13] MEDS: CLINDAMYCIN 900 MG in DEXTROSE 5% 50 ML IV SCH (08:21)
--- NOTE | 2021-05-13 08:31 | XRay Report ---
XR chest 1V portable HISTORY: HYPOXIA COMPARISON: None. FINDINGS: There are low lung volumes. The heart is mildly enlarged. Cervical spinal fusion hardware i s noted. The upper lung zones are clear. No evidence for pulmonary edema. There are patchy bibasilar densities. IMPRESSION: Patchy bibasilar densities. These are nonspecific but favor atelectasis given the low lung volumes. A pneumonia could also have a similar appearance in the appropriate clinical setting. ACT 112: Negative or not required by law. Electronically signed by: Nilesh Chamberlain M.D. 05/13/2021 8:30 AM
[2021-05-13 09:00] LABS: INR 1.4 (0.9-1.1); Prothrombin Time 13.6 Seconds (9.0-12.0)
[2021-05-13] MEDS ORDERED: ceFAZolin 2000MG 2,000 MG/15 ML SYR IV SCH (09:00)
[2021-05-13] MEDS: GABAPENTIN 300 MG CAP PO SCH ×2 (09:32→20:49)
[2021-05-13] MEDS: ATORVASTATIN 40 MG TAB PO SCH (09:33)
[2021-05-13] MEDS: FINASTERIDE 5 MG TAB PO SCH (09:33)
[2021-05-13] MEDS: TAMSULOSIN HCL 0.4 MG CAP PO SCH (09:33)
[2021-05-13] MEDS: ACETAMINOPHEN 325 MG TAB PO SCH ×2 (09:36→14:15)
[2021-05-13] MEDS: carvediloL 25 MG TAB PO SCH ×2 (09:39→20:47)
[2021-05-13] MEDS: INSULIN ASPART 100 UNITS/ML 3 ML PEN SC SCH ×4 (09:57→21:05)
[2021-05-13] MEDS: ENOXAPARIN 150 MG/ML SYR SQ SCH ×2 (10:27→20:48)
[2021-05-13] MEDS: DOXYCYCLINE HYCLATE 100 MG CAP PO SCH ×2 (10:28→20:48)
[2021-05-13 11:45] LABS: BUN Creatinine Ratio 13.7 (10-20); Calcium 7.9 mg/dl (8.5-10.1); Creatinine Clr Calc Pharmacy 124.8 ml/min; Est GFR (African American) 82.9 ml/min; Est GFR (Non-African American) 71.5 ml/min; Potassium 4.1 mmol/L (3.5-5.1)
[2021-05-13] MEDS ORDERED: FAMOTIDINE 20 MG TAB PO STA ×2 (12:02→23:03)
[2021-05-13] MEDS: FLUCONAZOLE 200 MG/100 ML BAG IV SCH (14:12)
--- NOTE | 2021-05-13 14:32 | Hospitalist Progress Note ---
Date of Service May 13, 2021 Assessment & Plan (1) Infected prosthetic mesh of abdominal wall: Plan: This is a 60yo M with a PMH of CAD, history of [place], ischemic cardiomyopathy, hypothyroidism, hypertension, CKD 3, BPH, recently diagnosed type 2 diabetes is diet-controlled, JOSE on CPAP, chronic bilateral lower extremity DVTs on Coumadin and other medical problems as below who is POD#0 s/p infected abdominal Wall Exploration with Explant of Old Mesh, Component Separation, Abdominal Wall Reconstruction with Biological Mesh by Dr. Tejeda. 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, oral pain control Steele catheter in place due to post-op urinary retention Continue IV fluids (2) Diabetes mellitus, type II: Plan: Recent a1c 6.5 in February 2021, diet controlled SSI while in-patient BSG AC HS (3) Chronic deep vein thrombosis (DVT): Plan: Resumed Lovenox and coumadin INR 1.4 today (4) CHF (congestive heart failure): Plan: History of [place], ischemic cardiomyopathy Holding Bumex Strict I&Os, daily weight, low sodium diet (5) CAD (coronary artery disease): Plan: Stable Continue carvedilol, statin, plavix resumed (6) Hypothyroidism: Plan: Continue levothyroxine (7) Iliac vein stenosis, left: Plan: Continue plavix, statin (8) JOSE on CPAP: Plan: CPAP HS PCP: Devorah Dispo: Admitted to med/surg, per ortho Patient seen in collaboration with Dr. Lind. Please see addendum. Thank you for this consultation. We will follow the patient with you during their hospital stay. You can reach a member of the [facility] Hospitalist Team 17/04 via [place] Text. Admission and Anticipated Discharge Date Admission Date: May 11, 2021 Supervising Physician Co-Signing Physician Notes Attending Addendum: care coordinated with MARIE Marcus please refer to her notes for full details, I agree with her notes patient seen and examined, records reviewed by myself as well on exam, patient seen resting in bed, off oxygen, comfortable states breathing is better than this morning, using incentive spirometer occasional cough, with very minimal phlegm no other symptoms VS noted and reviewed oriented x 3, not in distress, speaks in sentences with no effort nor accessory muscle use normal rate, regular rhythm, no murmurs clear breath sounds bilaterally non distended, soft, nontender, binder in place no bipedal edema, erythema, warmth no neuro deficits WBC 11.6 Hg 9.8 Crea 1.1 ASSESSMENT AND PLAN> HYPOXIA, LIKELY FROM ATELECTASIS CXR clear weaned off Oxygen encourage Incentive spirometry HISTORY OF CARDIOMYOPATHY resume Bumex tomorrow if BP stable other diagnoses and plan of care as per MARIE Marcus's notes Inocencio Lind MD Subjective POD#2 s/p abdominal Wall Exploration with Explant of Old Mesh, Component Separ ation, Abdominal Wall Reconstruction with Biological Mesh, Enterolysis by Dr. Tejeda Seen resting in bed, comfortable Required O2 overnight, weaned down to 93% on 1 L NC Pain is controlled currently but does not feel well enough to ambulate the halls like yesterday Tolerating clears without issue No F/C, lightheadedness, chest pain, palpitations, SOB, nausea, vomiting, abdominal pain. Not passing flatus at this point Review of Systems Review of Systems: At least ten systems reviewed and negative except as noted in the HPI. Physical Exam Physical Exam: General Appearance: WD/WN, vitals as above, NAD, sitting up in bed, pleasant, conversing easily Head: normocephalic, atraumatic Eyes: normal inspection, PERRL, conjunctivae normal, anicteric sclerae ENT: external ear and nose normal, oropharynx normal Neck: normal visual inspection, trachea midline, no thyromegaly Respiratory: normal respiratory effort, lungs clear to auscultation, no wheeze, rales, rhonchi. No accessory muscle use Cardiovascular: regular rate, rhythm, no murmur, normal peripheral pulses, no BLE edema. Vessels: no JVD Chest: normal inspection of chest Abdomen/GI: normal bowel sounds, soft, abdominal binder in place, drain visualized, incisional TTP, no hepatosplenomegaly : Steele catheter in place Extremities/Musculoskeletal: no cyanosis or clubbing, extremities motor strength 5/5 Neurologic: PERRL, EOMI, accommodation nl, no face palsy, no dysarthria, CN's II-XI intact bilaterally and moves all extremities Psychiatric: A+Ox3, euthymic affect Skin: no rashes, normal color, warm/dry Results & Data Results & Data ([facility]) Vital Signs (Past 12 Hours) Vital Signs Temp Pulse Resp BP Pulse Ox 05/13/21 11:10 36.6 C 67 16 104/69 95 05/13/21 07:40 107/70 05/13/21 07:19 36.6 C 61 16 93/57 L 92 05/13/21 03:22 37 C 69 18 104/69 97 Laboratory Results Short CBC 05/13/21 Range/Units 05:48 WBC 11.65 H (4.8-10.8) K/uL Hgb 9.8 L (14.0-18.0) g/dL Hct 31.9 L (42-52) % Plt Count 190 (130-400) K/uL BMP 05/13/21 06:03 Sodium 137 Potassium 4.1 Chloride 106 Carbon Dioxide 27 BUN 15 Creatinine 1.12 Glucose 113 H Calcium 7.9 L Diagnostic Findings Chest X-Ray 05/13/21 00:55 XR chest 1V portable HISTORY: HYPOXIA COMPARISON: None. FINDINGS: There are low lung volumes. The heart is mildly enlarged. Cervical spinal fusion hardware is noted. The upper lung zones are clear. No evidence for pulmonary edema. There are patchy bibasilar densities. IMPRESSION: Patchy bibasilar densities. These are nonspecific but favor atelectasis given the low lung volumes. A pneumonia could also have a similar appearance in the appropriate clinical setting. ACT 112: Negative or not required by law. Electronically signed by: Nilesh Chamberlain M.D. 05/13/2021 8:30 AM (1) Infected prosthetic mesh of abdominal wall Encounter type: initial encounter Qualified Code(s): T85.79XA - Infection and inflammatory reaction due to other internal prosthetic devices, implants and grafts, initial encounter
--- NOTE | 2021-05-13 14:43 | Surgery Progress Note ---
Date of Service May 13, 2021 Assessment & Plan (1) Infected prosthetic mesh of abdominal wall: Plan: pod 2 doing well keep another day. 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 will try d/c ing his rosas tomorrow am labs look good...will restart Plavix d/c planning....possibly tomorrow. Admission and Anticipated Discharge Date Admission Date: May 11, 2021 Subjective pt feeling better today than yesterday. ambulating. had to have rosas placed for urinary retention. also placed on oxygen last nigth. pain manageable. Physical Exam Physical Exam: alert. nad abd: soft. LAINEY less sanguinous/more serous today. expected tenderness. Results & Data ([facility]) Vital Signs (Past 12 Hours) Vital Signs Temp Pulse Resp BP Pulse Ox 05/13/21 11:10 36.6 C 67 16 104/69 95 05/13/21 07:40 107/70 05/13/21 07:19 36.6 C 61 16 93/57 L 92 05/13/21 03:22 37 C 69 18 104/69 97 PG Care Time/CCT Total # of Minutes Spent Total Time Spent with Patient: Total time spent is greater than 50% in coordination of care (as documented) at patient's floor/unit and/or counseling patient: Coding Level of Care Code None Diagnoses Infected prosthetic mesh of abdominal wall T85.79XA Encounter type: initial encounter (1) Infected prosthetic mesh of abdominal wall Encounter type: initial encounter Qualified Code(s): T85.79XA - Infection and inflammatory reaction due to other internal prosthetic devices, implants and grafts, initial encounter
[2021-05-13] MEDS: oxyCODONE/ACETAMINOPHEN 5mg/325mg TAB PO PRN ×3 (15:48→23:14)
[2021-05-13] MEDS: ONDANSETRON INJ 2 MG/ML 2 ML VIAL IV PRN (17:22)
[2021-05-13] MEDS: WARFARIN SOD 2.5 MG TAB PO SCH (18:00)
[2021-05-14] MEDS: ONDANSETRON INJ 2 MG/ML 2 ML VIAL IV PRN (02:05)
[2021-05-14] MEDS: oxyCODONE/ACETAMINOPHEN 5mg/325mg TAB PO PRN ×3 (02:20→13:29)
[2021-05-14] MEDS: LEVOTHYROXINE SODIUM 200 MCG TABLET PO SCH (06:02)
[2021-05-14] MEDS: LEVOTHYROXINE SODIUM 50 MCG TABLET PO SCH (06:03)
[2021-05-14 06:32] LABS: Basophils # (auto) 0.02 K/uL (0-0.2); Basophils % (auto) 0.2 %; Eosinophils # (auto) 0.16 K/uL (0-0.5); Eosinophils % (auto) 1.4 %; Hemoglobin 9.3 g/dL (14.0-18.0); Immature Granulocytes # (auto) 0.09 K/uL (0.00-0.02); Immature Granulocytes % (auto) 0.8 %; Lymphocytes % (auto) 15.3 %; Mean Corpuscular Hemoglobin 28.4 pg (25-34); Mean Corpuscular Volume 91.7 fL (80-100); Mean Platelet Volume 10.5 fL (7.4-10.4); Monocytes # (auto) 0.99 K/uL (0.11-0.59); Monocytes % (auto) 8.4 %; Neutrophils # (auto) 8.74 K/uL (1.4-6.5); Neutrophils % (auto) 73.9 %; Platelet Count 223 K/uL (130-400); RDW Coefficient of Variation 17.8 % (11.5-14.5); RDW Standard Deviation 59.2 fL (36.4-46.3); Red Blood Count 3.27 M/uL (4.7-6.1)
[2021-05-14 06:45] LABS: INR 1.4 (0.9-1.1)
[2021-05-14 07:12] LABS: BUN Creatinine Ratio 12.8 (10-20); Calcium 8.1 mg/dl (8.5-10.1); Est GFR (African American) 101.1 ml/min; Est GFR (Non-African American) 87.3 ml/min
[2021-05-14] MEDS: ATORVASTATIN 40 MG TAB PO SCH (07:31)
[2021-05-14] MEDS: carvediloL 25 MG TAB PO SCH (07:32)
[2021-05-14] MEDS: ENOXAPARIN 150 MG/ML SYR SQ SCH (07:33)
[2021-05-14] MEDS: DOXYCYCLINE HYCLATE 100 MG CAP PO SCH (07:33)
[2021-05-14] MEDS: FINASTERIDE 5 MG TAB PO SCH (07:34)
[2021-05-14] MEDS: GABAPENTIN 300 MG CAP PO SCH (07:34)
[2021-05-14] MEDS: TAMSULOSIN HCL 0.4 MG CAP PO SCH (07:34)
[2021-05-14] MEDS: SODIUM CHLORIDE 0.9% 1000ML 1,000 ML IV SCH (07:42)
--- NOTE | 2021-05-14 08:12 | Surgery Progress Note ---
Date of Service May 14, 2021 Assessment & Plan (1) Infected prosthetic mesh of abdominal wall: Plan: doing well ok for d/c on doxycycline and lovenox/coumadin/plavix INR check on monday wound and drain care reviewed f/u 1 week Admission and Anticipated Discharge Date Admission Date: May 11, 2021 Subjective pt doing well. no new complaints. would like to go home Physical Exam Physical Exam: alert. nad incision looks great. LAINEY's with small amount serous fluid. Results & Data ([facility]) Vital Signs (Past 12 Hours) Vital Signs Temp Pulse Resp BP Pulse Ox 05/14/21 07:18 37.1 C 64 16 120/70 95 05/13/21 23:15 37 C 72 14 133/86 86 L 05/13/21 20:45 128/79 PG Care Time/CCT Total # of Minutes Spent Total Time Spent with Patient: Total time spent is greater than 50% in coordination of care (as documented) at patient's floor/unit and/or counseling patient: Coding Level of Care Code None Diagnoses Infected prosthetic mesh of abdominal wall T85.79XA Encounter type: initial encounter (1) Infected prosthetic mesh of abdominal wall Encounter type: initial encounter Qualified Code(s): T85.79XA - Infection and inflammatory reaction due to other internal prosthetic devices, implants and grafts, initial encounter
--- NOTE | 2021-05-14 08:22 | Discharge Summary ---
Date of Service May 14, 2021 Admission HPI Per Admitting Provider Bobby has had somewhat of a blade surgical medical course of the last several years. He had complications from a spine surgery several years ago in [place]. Ultimately this required a sacral ulcer requiring a colostomy and subsequent reversal. He then had a large incisional hernia that was repaired with mesh in [place] as well. 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 It is failed conservative management and he is here today for definitive surgical intervention. There is been no changes in his health since I had last seen him in the office in March. Principal Diagnosis Infected mesh with cutaneous fistula Discharge Exam Constitutional WD/WN, vitals as above Gastrointestinal (Abdomen) Inspection/Auscultation: + abdominal surgical incision (dry) and + abdominal surgical drain present; abdomen not distended Percussion/Palpation: abdomen soft Discharge Data Allergies Allergy/AdvReac Type Severity Reaction Status Date / Time piperacillin [From Zosyn] Allergy Mild fever and Verified 05/11/21 13:27 chills tazobactam [From Zosyn] Allergy Mild fever and Verified 05/11/21 13:27 chills Consultations 05/11/21 12:59 Consult Hospitalist Routine Procedures Performed Operation Date: 05/11/21 07:15 Actual Procedures p Abdominal Wall Exploration with Explant of Old Mesh, Component Separation, Abdominal Wall Reconstruction with Biological Mesh, Enterolysis(Not Applicable) - Tavares Tejeda, [facility] Course (1) Infected prosthetic mesh of abdominal wall: 60 y/o male with infected mesh was taken to the operating room for removal of infected mesh and repair with biologic mesh. He was transferred to the surgical floor and kept on IV antibiotics. He was bridged with Lovenox and coumadin resumed POD 1. Hospitalist was consulted routinely given his history of DM, cardiomyopathy, and DVT. He had some urinary retention and rosas was eventually placed and left for 48 hours. By POD 3 he was tolerating oral analgesics. Rosas was removed. He was stable for discharge home and will resume doxycycline and continue coumadin with Lovenox bridge. . Total Time Total Time Spent Total Time Spent (In Minutes): 15 Discharge Plan Discharge Items Patient Disposition: Home - Self-Care Reason For Visit: Infected Prosthetic Mesh with Abdominal Wall Discharge Diagnosis: infected mesh Activity: As commented below Lifting: No more than 10 pounds Bathing Comment: may shower or sponge bath. no tub soaks Non-emergency contact: Surgeon Call non-emergency contact if: you have any medication questions, your pain is worsening, your pain is unusual for you, you have a fever, your wound has increased redness and your wound pain has increased Follow-up/Referrals: Tavares Tejeda DO [Surgeon] - Amparo Fairchild MD [Primary Care Provider] - Diet: Regular Addtl Attending Provider Instructions: empty and record drain output as discussed. Pending Studies at Discharge: Yes Studies:: path report Stand-Alone Forms: My [facility] [employer], Smoking Cessation Medications and DC Order Prescriptions: New oxycodone-acetaminophen 5-325 mg tablet 1 tab PO Q6H PRN (Reason: pain) Qty: 40 RF: 0 Continued levothyroxine 200 mcg capsule 200 mcg PO QAM RF: 0 nystatin 100,000 unit/gram powder 1 applic topical DAILY Qty: 60 RF: 0 doxycycline hyclate 100 mg capsule 100 mg PO BID 14 Days Qty: 28 RF: 1 atorvastatin 80 mg tablet 80 mg PO QAM RF: 0 carvedilol 25 mg tablet 25 mg PO BID RF: 0 clopidogrel 75 mg tablet 75 mg PO QAM RF: 0 potassium chloride 10 mEq capsule, extended release 10 meq PO QAM RF: 0 tamsulosin 0.4 mg capsule 0.4 mg PO QAM RF: 0 losartan 50 mg tablet 50 mg PO QAM RF: 0 ferrous sulfate [Feosol] 325 mg (65 mg iron) tablet 325 mg PO TID RF: 0 Centrum Silver 0.4-300-250 mg-mcg-mcg tablet 1 tab PO DAILY RF: 0 bumetanide 1 mg tablet 1.5 mg PO QAM RF: 0 gabapentin 300 mg capsule 300 mg PO BID RF: 0 warfarin 2.5 mg tablet 2.5 mg PO DAILY RF: 0 enoxaparin [Lovenox] 150 mg/mL Syringe 150 mg SUBCUT Q12H RF: 0 methocarbamol 500 mg Tablet 500 mg PO DAILY PRN (Reason: Muscle Spasm) RF: 0 finasteride 5 mg Tablet 5 mg PO DAILY RF: 0 levothyroxine 50 mcg Tablet 50 mcg PO DAILY RF: 0 Discharge Orders: Discharge Order (Routine); Ordered 05/14/21 Ordered By: Tavares Joe/Other Patient Handouts: A1C, [facility] Diabetes Admission Data Admit Date/Time: 05/11/21 11:11 Attending Provider: Tavares Tejeda Admit Provider: Tavares Tejeda Primary Care Provider: Amparo Fairchild Other Providers: Sebastien Patiño ; Laurie Delvalle ; Inocencio Lind Coding Level of Care Code D/C DAY MANAGEMENT <30 MINS Diagnoses Infected prosthetic mesh of abdominal wall T85.79XA Encounter type: initial encounter
[2021-05-14] MEDS ORDERED: CLOPIDOGREL BISULFATE 75 MG TAB PO SCH (09:00)
[2021-05-14] MEDS ORDERED: FAMOTIDINE 20 MG TAB PO SCH (09:00)
[2021-05-14] MEDS: INSULIN ASPART 100 UNITS/ML 3 ML PEN SC SCH ×2 (09:09→12:17)
--- NOTE | 2021-05-14 17:07 | Communication Note ---
Date of Service: May 14, 2021 went to see patient in his room around 230pm but patient has already left called patient- discussed plan of care advised to continue Bumex, and BP meds discussed to continue Warfarin 2.5mg and Lovenox BID Coumadin clinic notified re: patient's discharge and for ff up as outpatient Inocencio Lind MD
== END 2021-05-14 14:32 | disposition home or self-care (01) | DRG 908 ==
LOC: ASU 05:22 → 3E 11:11

== ENCOUNTER 2021-05-16 07:53 | Inpatient (IN) ==
[2021-05-16] MEDS ORDERED: ONDANSETRON INJ 2 MG/ML 2 ML VIAL IV STA ×2 (08:40→10:03)
[2021-05-16] MEDS ORDERED: SODIUM CHLORIDE 0.9% 1000ML 1,000 ML IV STA (08:40)
--- NOTE | 2021-05-16 08:46 | Emergency Department Note ---
History of Present Illness General Chief complaint: Vomiting Stated complaint: S/P HERNIA REPAIR,NAUSEA AND VOMITING Time Seen by Provider: 05/16/21 08:30 Source: patient, family, RN notes reviewed and old records reviewed Mode of arrival: ambulatory Limitations: no limitations History of Present Illness Maximum Pain Intensity: 6 This patient is a 60-year-old male with a complex medical history status post mesh replacement done by Dr. Tejeda on Monday. He said that he was discharged on Monday he was having some difficulty with clear liquids but they thought that he would do okay he took some protein shakes and started throwing up on Monday he talked to the on-call doctor who recommended he take clear l iquids he said with this he still throwing up he is thrown up some coffee-ground stuff he feels very weak. He could not sleep he is having abdominal distention. He is on Coumadin and clopidogrel for history of DVT which they restarted 2 days after surgery. He had the Covid vaccine x2. No chest pain or shortness of breath or fever. He has LAINEY drains which are draining small amount of bloody dis charge. Home Medications Medication Instructions Recorded Confirmed Type atorvastatin 80 mg tablet (Lipitor) 80 mg PO QAM 03/25/21 05/16/21 History carvedilol 25 mg tablet (Coreg) 25 mg PO BID 03/25/21 05/16/21 History clopidogrel 75 mg tablet (Plavix) 75 mg PO QAM 03/25/21 05/16/21 History ferrous sulfate 325 mg (65 mg 325 mg PO TID 03/25/21 05/16/21 History iron) tablet (Feosol) losartan 50 mg tablet (Cozaar) 50 mg PO QAM 03/25/21 05/16/21 History bxyexsmm-mcr-temlc acid 0.4 1 tab PO QAM 03/25/21 05/16/21 History mg-lycopene 300 mcg-lutein 250 mcg tablet (Centrum Silver) potassium chloride 10 mEq 10 meq PO QAM 03/25/21 05/16/21 History capsule,extended release tamsulosin 0.4 mg capsule (Flomax) 0.4 mg PO QAM 03/25/21 05/16/21 History bumetanide 1 mg tablet 1.5 mg PO QAM tab 04/07/21 05/16/21 History gabapentin 300 mg capsule 300 mg PO BID cap 04/07/21 05/16/21 History (Neurontin) levothyroxine 200 mcg capsule 200 mcg PO DAILYBB 04/07/21 05/16/21 History (Tirosint) warfarin 2.5 mg tablet (Jantoven) 2.5 mg PO HS tab 04/07/21 05/16/21 History enoxaparin 150 mg/mL subcutaneous 150 mg SUBCUT Q12H 05/11/21 05/16/21 History syringe (Lovenox) finasteride 5 mg tablet (Proscar) 5 mg PO QAM 05/11/21 05/16/21 History levothyroxine 50 mcg tablet 50 mcg PO DAILYBB 05/11/21 05/16/21 History (Synthroid) methocarbamol 500 mg tablet 500 mg PO DAILY PRN 05/11/21 05/16/21 History oxycodone-acetaminophen 5 mg-325 1 tab PO Q6H PRN 05/16/21 05/16/21 History mg tablet (Percocet) Allergies Allergy/AdvReac Type Severity Reaction Status Date / Time piperacillin [From Zosyn] Allergy Mild fever and Verified 05/16/21 08:53 chills tazobactam [From Zosyn] Allergy Mild fever and Verified 05/16/21 08:53 chills Past Med/Surg History Medical History BPH (benign prostatic hyperplasia) CAD (coronary artery disease) Had cardiac cath- was told he had old MA with small vessel (2014) and medication management recommended per cardio records Did have repeat cardiac cath 2019 that showed no significant changes from 2014- medical management still recommended CHF (congestive heart failure) Ischemic CM per records EF ranging 30-45% since 2013 EF improved to 50-54% with 2020 ECHO Chronic deep vein thrombosis (DVT) Chronic kidney disease Stage 3 Diabetes mellitus, type II Dyslipidemia H/O deep venous thrombosis 2016 (complication from immobility from surgery)-- bilateral LE and takes warfarin Hypertension Per records Hypothyroidism JOSE on CPAP Per records 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 Tejeda 05-11-2021 H/O colonoscopy 2018 History of colostomy 2017 - due to ulcer History of colostomy reversal 2019 History of gastric surgery hx of vertical banded gastroplasty History of incisional hernia repair Incisional hernia repair with Ventrio mesh 15x25.7cm and Biologic integra 10x12.5cm as a layered mesh Ventrio first, then Integra. (2019) History of intravascular stent placement 2016 dvt IVC filter and then filter was removed Previous back surgery 2017 discectomy fusion one internal and then posterior fusion Family History Mother Clotting disorder Diabetes Hypertension Father Diabetes Hypertension Other Coronary heart disease Social History Smoking Status: Never smoker Second Hand Exposure: No; Hx Alcohol Use: No Hx Substance Use: No Preferred Language: Colombian Communication Ability: Effective Armed Security Officer Required: No Beliefs That Will Affect Care: None marital status: Single Current Living Situation: Family current occupational status: disabled How many Children do You have: 0 Feels Safe at Home: Yes Sunscreen Use: No Assistive Devices: Glasses and Walker Review of Systems A total of 10 systems reviewed and were otherwise negative Physical Exam Vital Signs Vital Signs - 24 hr 05/16/21 07:58 05/16/21 09:13 05/16/21 10:00 Temperature 36.4 C L Temperature Source Temporal Artery Scan Pulse Rate 89 Pulse Rate [Apical] 70 Pulse Rhythm [Apical] Regular Pulse Strength [Apical] Normal Respiratory Rate 20 20 Respiratory Effort / Characteristics Non-Labored Non-Labored Respiratory Depth Normal Normal Respiratory Pattern Regular Regular Blood Pressure 117/77 Blood Pressure [Right Arm] 126/80 Blood Pressure Mean 90 Blood Pressure Mean [Right Arm] 95 Blood Pressure Position Sitting Blood Pressure Position [Right Arm] Pulse Oximetry 95 95 Oxygen Delivery Method Room Air Room Air Room Air Sepsis Recent Fever Within 48 Hours No Sepsis New/Unexplained Change in Mental Status No Sepsis Action Taken by Nursing No Action Required 05/16/21 12:00 Temperature Temperature Source Pulse Rate Pulse Rate [Apical] 78 Pulse Rhythm [Apical] Pulse Strength [Apical] Respiratory Rate 18 Respiratory Effort / Characteristics Respiratory Depth Respiratory Pattern Blood Pressure Blood Pressure [Right Arm] 142/86 H Blood Pressure Mean Blood Pressure Mean [Right Arm] 104 Blood Pressure Position Blood Pressure Position [Right Arm] Lying Pulse Oximetry 92 Oxygen Delivery Method Room Air Sepsis Recent Fever Within 48 Hours Sepsis New/Unexplained Change in Mental Status Sepsis Action Taken by Nursing General: Well developed well nourished middle-age male who in no acute distress, breathing comfortably on room air. Normal speech HEENT: Normal cephalic atraumatic. Pupils are equal round and reactive to light. Extraocular movements are intact. Oropharynx is pink with moist mucous membranes. No swelling of the mouth lips or tongue. Neck: Supple with a midline trachea. No meningeal signs or stiffness, no JVD or bruits. No Stridor. Chest: Clear to auscultation bilaterally. No wheezes or rhonchi. No increased work of breathing. Heart: Regular rate and rhythm without murmurs or gallops. Abdomen: Soft, distended and mildly diffusely tender. LAINEY is in place. Without rebound guarding or rigidity. Extremities: No cyanosis clubbing or edema. No calf tenderness or assymetry Spine/Back. Non tender to palpation. No CVA tenderness Skin: Good turgor without rashes. Neurologic exam: Cranial nerves two through 12 are intact. Motor and sensation are intact and symmetrical throughout. Course Administered Medications Discontinued Medications Hydromorphone HCl (Hydromorphone Inj 1 Mg/Ml Syringe) 1 mg IV NOW STA Stop: 05/16/21 12:29 Last Admin: 05/16/21 12:37 Dose: 1 mg Documented by: [id number] Sodium Chloride (Nss 1000ml) 1,000 mls @ 999 mls/hr IV .Q1H1M STA Stop: 05/16/21 09:40 Last Infusion: 05/16/21 10:52 Dose: 0 mls/hr Documented by: [id number] Admin: 05/16/21 09:05 Dose: 999 mls/hr Documented by: [id number] Sodium Chloride (Nss 1000ml) 1,000 mls @ 999 mls/hr IV .Q1H1M ONE Stop: 05/16/21 11:03 Last Infusion: 05/16/21 11:35 Dose: 0 mls/hr Documented by: [id number] Admin: 05/16/21 10:30 Dose: 999 mls/hr Documented by: [id number] Ioversol (Optiray 320 100ml) 93 ml IV ONCE ONE Stop: 05/16/21 10:10 Last Admin: 05/16/21 10:09 Dose: 93 ml Documented by: [id number] Ondansetron HCl (Ondansetron Inj 2 Mg/Ml 2 Ml Vial) 4 mg IV NOW STA Stop: 05/16/21 08:41 Last Admin: 05/16/21 09:05 Dose: 4 mg Documented by: [id number] Ondansetron HCl (Ondansetron Inj 2 Mg/Ml 2 Ml Vial) 4 mg IV NOW STA Stop: 05/16/21 10:04 Last Admin: 05/16/21 10:30 Dose: 4 mg Documented by: [id number] Medical Decision Making Differential Diagnosis Ileus, dehydration, GI bleed, postop complication, infection, Covid Medical Records Attestation: I reviewed the patient's medical records. Home Medications Current Medication List: was personally reviewed by me Laboratory Data Attestation: I reviewed the patient's lab results. Result diagrams: 05/16/21 08:58 05/16/21 08:58 Lab Results 05/16/21 05/16/21 05/16/21 Range/Units 08:58 08:58 08:58 WBC 16.76 H (4.8-10.8) K/uL RBC 3.78 L (4.7-6.1) M/uL Hgb 10.9 L (14.0-18.0) g/dL Hct 34.1 L (42-52) % MCV 90.2 (80-100) fL MCH 28.8 (25-34) pg MCHC 32.0 (32-36) g/dL RDW Std Deviation 59.8 H (36.4-46.3) fL RDW Coeff of Jason 18.4 H (11.5-14.5) % Plt Count 308 (130-400) K/uL MPV 10.0 (7.4-10.4) fL Immature Gran % (Auto) 1.0 % Neut % (Auto) 81.0 % Lymph % (Auto) 10.8 % [place] % (Auto) 6.9 % Eos % (Auto) 0.2 % Baso % (Auto) 0.1 % Neut # (Auto) 13.57 H (1.4-6.5) K/uL Lymph # (Auto) 1.81 (1.2-3.4) K/uL [place] # (Auto) 1.15 H (0.11-0.59) K/uL Eos # (Auto) 0.04 (0-0.5) K/uL Baso # (Auto) 0.02 (0-0.2) K/uL Immature Gran # (Auto) 0.17 H (0.00-0.02) K/uL Absolute Nucleated RBC 0.02 H (0-0) K/uL Nucleated RBC % (auto) 0.1 % PT (9.0-12.0) Seconds INR (0.9-1.1) Sodium 135 L (136-145) mmol/L Potassium 4.3 (3.5-5.1) mmol/L Chloride 98 (98-107) mmol/L Carbon Dioxide 28 (21-32) mmol/L Anion Gap 9.0 (3-11) BUN 21 H (7-18) mg/dl Creatinine 1.49 H (0.6-1.4) mg/dl Est Cr Clr Drug Dosing Not Reportable Est GFR ( Amer) 58.7 ml/min Est GFR (Non-Af Amer) 50.6 ml/min BUN/Creatinine Ratio 14.3 (10-20) Glucose 138 H (70-99) mg/dl Calcium 9.4 (8.5-10.1) mg/dl Total Bilirubin 0.4 (0.2-1) mg/dl AST 28 (15-37) U/L ALT 31 (12-78) U/L Alkaline Phosphatase 80 (45-117) U/L Total Protein 8.4 H (6.4-8.2) gm/dl Albumin 3.1 L (3.4-5.0) gm/dl Globulin 5.3 H (2.5-4.0) gm/dl Albumin/Globulin Ratio 0.6 L (0.9-2) Lipase 195 (73-393) U/L Specimen Hemolysis COVID-19 Eval Order SARS-CoV-2 (PCR) (Negative) Blood Type A Positive Antibody Screen NEGATIVE 05/16/21 05/16/21 05/16/21 Range/Units 08:58 10:31 10:31 WBC (4.8-10.8) K/uL RBC (4.7-6.1) M/uL Hgb (14.0-18.0) g/dL Hct (42-52) % MCV (80-100) fL MCH (25-34) pg MCHC (32-36) g/dL RDW Std Deviation (36.4-46.3) fL RDW Coeff of Jason (11.5-14.5) % Plt Count (130-400) K/uL MPV (7.4-10.4) fL Immature Gran % (Auto) % Neut % (Auto) % Lymph % (Auto) % [place] % (Auto) % Eos % (Auto) % Baso % (Auto) % Neut # (Auto) (1.4-6.5) K/uL Lymph # (Auto) (1.2-3.4) K/uL [place] # (Auto) (0.11-0.59) K/uL Eos # (Auto) (0-0.5) K/uL Baso # (Auto) (0-0.2) K/uL Immature Gran # (Auto) (0.00-0.02) K/uL Absolute Nucleated RBC (0-0) K/uL Nucleated RBC % (auto) % PT 20.9 H (9.0-12.0) Seconds INR 2.2 H (0.9-1.1) Sodium (136-145) mmol/L Potassium (3.5-5.1) mmol/L Chloride (98-107) mmol/L Carbon Dioxide (21-32) mmol/L Anion Gap (3-11) BUN (7-18) mg/dl Creatinine (0.6-1.4) mg/dl Est Cr Clr Drug Dosing Est GFR ( Amer) ml/min Est GFR (Non-Af Amer) ml/min BUN/Creatinine Ratio (10-20) Glucose (70-99) mg/dl Calcium (8.5-10.1) mg/dl Total Bilirubin (0.2-1) mg/dl AST (15-37) U/L ALT (12-78) U/L Alkaline Phosphatase (45-117) U/L Total Protein (6.4-8.2) gm/dl Albumin (3.4-5.0) gm/dl Globulin (2.5-4.0) gm/dl Albumin/Globulin Ratio (0.9-2) Lipase (73-393) U/L Specimen Hemolysis COVID-19 Eval Order Covid19 at [facility] SARS-CoV-2 (PCR) NEGATIVE (Negative) Blood Type Antibody Screen Imaging Data Attestation: I personally reviewed and interpreted this imaging study as follows: My Impression: Chest x-rayno free air. No evidence of CHF. Atelectasis. Radiologist's Impression: Chest X-Ray 05/16/21 08:41 SINGLE VIEW CHEST CLINICAL HISTORY: Vomiting. FINDINGS: An AP, portable, upright chest radiograph is compared to study dated 05/13/2021. The heart is enlarged. The pulmonary vasculature is noncongested. Bibasilar opacities likely represent scarring/atelectasis. No large pleural ef fusion or pneumothorax is seen. The skeletal structures are osteopenic. The bony thorax is grossly intact. Extensive fusion hardware is seen in the lower cervical spine. IMPRESSION: 1. Cardiomegaly without radiographic evidence of congestive failure. 2. Bibasilar opacities likely represent scarring/atelectasis. This is similar to previous and clinical correlation will be required. ACT 112: Negative or not required by law. Electronically signed by: Nick Sylvester M.D. 05/16/2021 9:13 AM Abdomen/Pelvis CT 05/16/21 09:59 CT SCAN OF THE ABDOMEN AND PELVIS WITH IV CONTRAST CLINICAL HISTORY: Generalized abdominal pain. Vomiting. Unspecified surgical history. COMPARISON STUDY: Abdominal CT dated 01/19/2021. TECHNIQUE: Following the IV administration of 93 cc of Optiray 320, CT scan of the abdomen and pelvis is performed from the lung bases to the proximal femora. Images are reviewed in the axial, sagittal, and coronal planes. IV contrast was administered without complication. A dose lowering technique was utilized adhering to the principles of ALARA. The examination is degraded by motion artifact. CT DOSE: 2407.36 mGy.cm FINDINGS: Lung bases: The heart is enlarged and without pericardial effusion. There are coronary artery calcifications. There are numerous calcified granulomas. Scarring/atelectasis is seen at the lung bases. No airspace consolidation typical for pneumonia or pleural effusion is identified. The distal esophagus is distended and filled with fluid. Gynecomastia is noted. Liver: The contrast-enhanced liver is normal in size, contour, and attenuation. There is no intrahepatic biliary ductal dilatation. The hepatic veins and portal veins are patent. Gallbladder: The gallbladder is distended but otherwise normal in appearance. Spleen: Normal in size and attenuation. Pancreas: Moderately atrophic and grossly unremarkable. Adrenal glands: Unremarkable. Kidneys: The contrast enhanced kidneys are atrophic and without hydronephrosis. The kidneys enhance symmetrically. Nonobstructing left renal calculi measure up to 10 mm. Abdominal vasculature: The abdominal aorta is normal in course and caliber noting mild atherosclerotic calcification. Stents are present within the mid to distal inferior vena cava, the common iliac veins, and the right external iliac vein. These are patent as visualized. Stomach and bowel: There is extensive postoperative change seen involving the stomach. The stomach and proximal small bowel loops are markedly distended and filled with fluid. Small bowel loops measure up to 6.1 cm diameter. A focal transition point is identified in the ventral left midabdomen on image #[id number]. The distal small bowel and colon are decompressed, and findings are consistent with a high-grade small bowel obstruction. There is trace interloop fluid and mild inflammatory change at the transition point. No focally thick walled bowel loops are identified. There is no pneumatosis intestinalis or portal venous gas. Postoperative change is also noted in the distal descending colon. Residual enteric contrast is noted in the colon. The appendix is well-visualized and normal. Peritoneum: There is no intraperitoneal free air or abdominal ascites. Lymphadenopathy: None. Pelvic viscera: The prostate gland is enlarged and heterogeneous noting median lobe hypertrophy. The bladder and seminal vesicles are normal as visualized. There are bilateral fat-containing inguinal hernias. Skeletal structures: The skeletal structures appear osteopenic. There is mild to moderate lumbosacral spondylosis. No lytic or blastic lesions are seen. Soft tissues: Findings suggest previous ventral hernia repair. Midline skin cl ips are noted in the lower abdomen and pelvis. There is induration, trace fluid, and foci subcutaneous gas within the ventral abdominal wall consistent with recent surgery. 2 surgical drains are present within the ventral abdominal wall, entering the abdominal wall in the ventral pelvis bilaterally. No organized/drainable fluid collection is identified. IMPRESSION: 1. Findings are consistent with a high-grade small bowel obstruction. A transition point is identified in the ventral left mid abdomen, and this is likely on the basis of adhesions. 2. There is trace interloop fluid and mild infiltration around the transition point. 3. No intraperitoneal free air is identified. There is no pneumatosis intestinalis or portal venous gas. 4. Postoperative change is seen involving the stomach and the distal descending colon. 5. Postoperative change is seen within the ventral wall of the lower abdomen and pelvis as detailed above with [address] Correlate with the operative history. No organized/drainable fluid collection is identified. 6. Stents are again seen within the inferior vena cava and the iliac veins as above. 7. Left-sided nephrolithiasis. 8. Cardiomegaly. 9. The distal esophagus is dilated and filled with fluid. Note that this may place the patient at risk for aspiration. 10. Additional findings as above. ACT 112: Negative or not required by law. Electronically signed by: Nick Sylvester M.D. 05/16/2021 11:24 AM ECG Data Attestation: I personally reviewed and interpreted this ECG as follows: Indication: + abdominal pain and + other (Poor baseline) Rate (beats per minute): 65 Rhythm: + normal sinus ECG Intervals/blocks: + Normal QRS, + Normal QT and + Normal CT ECG Reform: + Normal ECG ST segments: + repolarization abnormalities ECG Findings: + PVCs; no PACs Comparison ECG Date: no prior available MDM Narrative This patient comes in after having vomiting. IV access was established and he was hydrated with 1 L IV normal saline bolus was given 4 mg IV of Zofran. His vital signs were initially stable but there is concern with the coffee-ground emesis. He is also on Coumadin. His white blood count is elevated. He has baseline anemia. His renal function is mildly elevated likely consistent with dehydration. His abdomen is distended and tender but without peritonitis. He did receive a second liter of normal saline bolus as well as additional 4 mg of IV Zofran. Despite this he continued of nausea and some vomiting. His CAT scan does show high-grade bowel obstruction likely secondary to adhesion. In light of this I did place an NG tube with low intermittent suction. This got out over a liter of nonbloody emesis. The patient was feeling better with this. Given that he had recent surgery by Dr. Tejeda I paged Dr. Bender. He was in the operating room at the time and via the surgical nurse ask the medical team to admit the patient. I then consulted the medical team and they would will admit the patient for further inpatient treatment and evaluation. Continuous cardiac monitoring: Orders placed in EMR for continuous surgery aide. The patient was noted to be in normal sinus rhythm with a rate of 78 Impression & Plan SBO (small bowel obstruction), S/P hernia repair, Lab test negative for COVID- 19 virus, Current use of alf anticoagulation, Vomiting Discharge Plan Visit Data Chief Complaint: Vomiting Stated Complaint: S/P HERNIA REPAIR,NAUSEA AND VOMITING ED Provider: Joselito Feng Discharge Problem: SBO (small bowel obstruction), S/P hernia repair, Lab test negative for COVID- 19 virus, Current use of alf anticoagulation, Vomiting Forms Stand Alone Forms: My [facility] Prescriptions Prescriptions: No Action levothyroxine [Tirosint] 200 mcg capsule 200 mcg PO DAILYBB RF: 0 atorvastatin [Lipitor] 80 mg tablet 80 mg PO QAM RF: 0 carvedilol [Coreg] 25 mg tablet 25 mg PO BID RF: 0 clopidogrel [Plavix] 75 mg tablet 75 mg PO QAM RF: 0 potassium chloride 10 mEq capsule, extended release 10 meq PO QAM RF: 0 tamsulosin [Flomax] 0.4 mg capsule 0.4 mg PO QAM RF: 0 losartan [Cozaar] 50 mg tablet 50 mg PO QAM RF: 0 ferrous sulfate [Feosol] 325 mg (65 mg iron) tablet 325 mg PO TID RF: 0 Centrum Silver 0.4-300-250 mg-mcg-mcg tablet 1 tab PO QAM RF: 0 bumetanide 1 mg tablet 1.5 mg PO QAM RF: 0 gabapentin [Neurontin] 300 mg capsule 300 mg PO BID RF: 0 warfarin [Jantoven] 2.5 mg tablet 2.5 mg PO HS RF: 0 enoxaparin [Lovenox] 150 mg/mL Syringe 150 mg SUBCUT Q12H RF: 0 methocarbamol 500 mg Tablet 500 mg PO DAILY PRN (Reason: Muscle Spasm) RF: 0 finasteride [Proscar] 5 mg Tablet 5 mg PO QAM RF: 0 levothyroxine [Synthroid] 50 mcg Tablet 50 mcg PO DAILYBB RF: 0 oxycodone-acetaminophen [Percocet] 5-325 mg tablet 1 tab PO Q6H PRN (Reason: pain) RF: 0 Referrals Referrals: Amparo Fairchild MD [Primary Care Provider] - Discharge Problem: Vomiting Qualifiers: Vomiting type: unspecified Vomiting Intractability: intractable Nausea presence: with nausea Qualified Code(s): R11.2 - Nausea with vomiting, unspecified
[2021-05-16 09:09] LABS: Basophils # (auto) 0.02 K/uL (0-0.2); Basophils % (auto) 0.1 %; Eosinophils # (auto) 0.04 K/uL (0-0.5); Eosinophils % (auto) 0.2 %; Hematocrit (blood only) 34.1 % (42-52); Hemoglobin 10.9 g/dL (14.0-18.0); Immature Granulocytes # (auto) 0.17 K/uL (0.00-0.02); Lymphocytes # (auto) 1.81 K/uL (1.2-3.4); Lymphocytes % (auto) 10.8 %; Mean Corpuscular Hemoglobin 28.8 pg (25-34); Mean Corpuscular Volume 90.2 fL (80-100); Monocytes # (auto) 1.15 K/uL (0.11-0.59); Monocytes % (auto) 6.9 %; Neutrophils # (auto) 13.57 K/uL (1.4-6.5); Nucleated RBC # (auto) 0.02 K/uL (0-0); Nucleated RBC % (auto) 0.1 %; Platelet Count 308 K/uL (130-400); RDW Coefficient of Variation 18.4 % (11.5-14.5); RDW Standard Deviation 59.8 fL (36.4-46.3); Red Blood Count 3.78 M/uL (4.7-6.1); White Blood Count 16.76 K/uL (4.8-10.8)
--- NOTE | 2021-05-16 09:14 | XRay Report ---
SINGLE VIEW CHEST CLINICAL HISTORY: Vomiting. FINDINGS: An AP, portable, upright chest radiograph is compared to study dated 05/13/2021. The heart i s enlarged. The pulmonary vasculature is noncongested. Bibasilar opacities likely represent scarring/ atelectasis. No large pleural effusion or pneumothorax is seen. The skeletal structures are osteopeni c. The bony thorax is grossly intact. Extensive fusion hardware is seen in the lower cervical spine. IMPRESSION: 1. Cardiomegaly without radiographic evidence of congestive failure. 2. Bibasilar opacities likely represent scarring/atelectasis. This is similar to previous and clinica l correlation will be required. ACT 112: Negative or not required by law. Electronically signed by: Nick Sylvester M.D. 05/16/2021 9:13 AM
[2021-05-16 09:23] LABS: INR 2.2 (0.9-1.1); Prothrombin Time 20.9 Seconds (9.0-12.0)
[2021-05-16 09:57] LABS: Alanine Aminotransferase 31 U/L (12-78); Albumin Globulin Ratio 0.6 (0.9-2); Albumin Level 3.1 gm/dl (3.4-5.0); Alkaline Phosphatase 80 U/L (45-117); Aspartate Aminotransferase 28 U/L (15-37); BUN Creatinine Ratio 14.3 (10-20); Bilirubin,Total 0.4 mg/dl (0.2-1); Blood Urea Nitrogen 21 mg/dl (7-18); Calcium 9.4 mg/dl (8.5-10.1); Carbon Dioxide 28 mmol/L (21-32); Chloride 98 mmol/L (98-107); Est GFR (African American) 58.7 ml/min; Est GFR (Non-African American) 50.6 ml/min; Globulin 5.3 gm/dl (2.5-4.0); Glucose 138 mg/dl (70-99); Lipase 195 U/L (73-393); Potassium 4.3 mmol/L (3.5-5.1); Sodium 135 mmol/L (136-145); Total Protein 8.4 gm/dl (6.4-8.2)
[2021-05-16] MEDS ORDERED: SODIUM CHLORIDE 0.9% 1000ML 1,000 ML IV ONE (10:03)
[2021-05-16] MEDS ORDERED: OPTIRAY 320 100ml IV ONE (10:09)
--- NOTE | 2021-05-16 11:25 | CT Scan Report ---
CT SCAN OF THE ABDOMEN AND PELVIS WITH IV CONTRAST CLINICAL HISTORY: Generalized abdominal pain. Vomiting. Unspecified surgical history. COMPARISON STUDY: Abdominal CT dated 01/19/2021. TECHNIQUE: Following the IV administration of 93 cc of Optiray 320, CT scan of the abdomen and pelvi s is performed from the lung bases to the proximal femora. Images are reviewed in the axial, sagittal , and coronal planes. IV contrast was administered without complication. A dose lowering technique wa s utilized adhering to the principles of ALARA. The examination is degraded by motion artifact. CT DOSE: 2407.36 mGy.cm FINDINGS: Lung bases: The heart is enlarged and without pericardial effusion. There are coronary artery calcifi cations. There are numerous calcified granulomas. Scarring/atelectasis is seen at the lung bases. No airspace consolidation typical for pneumonia or pleural effusion is identified. The distal esophagus is distended and filled with fluid. Gynecomastia is noted. Liver: The contrast-enhanced liver is normal in size, contour, and attenuation. There is no intrahepa tic biliary ductal dilatation. The hepatic veins and portal veins are patent. Gallbladder: The gallbladder is distended but otherwise normal in appearance. Spleen: Normal in size and attenuation. Pancreas: Moderately atrophic and grossly unremarkable. Adrenal glands: Unremarkable. Kidneys: The contrast enhanced kidneys are atrophic and without hydronephrosis. The kidneys enhance s ymmetrically. Nonobstructing left renal calculi measure up to 10 mm. Abdominal vasculature: The abdominal aorta is normal in course and caliber noting mild atheroscleroti c calcification. Stents are present within the mid to distal inferior vena cava, the common iliac vei ns, and the right external iliac vein. These are patent as visualized. Stomach and bowel: There is extensive postoperative change seen involving the stomach. The stomach an d proximal small bowel loops are markedly distended and filled with fluid. Small bowel loops measure up to 6.1 cm diameter. A focal transition point is identified in the ventral left midabdomen on image #[id number]. The distal small bowel and colon are decompressed, and findings are consistent with a high-gra de small bowel obstruction. There is trace interloop fluid and mild inflammatory change at the transi tion point. No focally thick walled bowel loops are identified. There is no pneumatosis intestinalis or portal venous gas. Postoperative change is also noted in the distal descending colon. Residual ent leena contrast is noted in the colon. The appendix is well-visualized and normal. Peritoneum: There is no intraperitoneal free air or abdominal ascites. Lymphadenopathy: None. Pelvic viscera: The prostate gland is enlarged and heterogeneous noting median lobe hypertrophy. The bladder and seminal vesicles are normal as visualized. There are bilateral fat-containing inguinal he rnias. Skeletal structures: The skeletal structures appear osteopenic. There is mild to moderate lumbosacral spondylosis. No lytic or blastic lesions are seen. Soft tissues: Findings suggest previous ventral hernia repair. Midline skin clips are noted in the lo wer abdomen and pelvis. There is induration, trace fluid, and foci subcutaneous gas within the ventra l abdominal wall consistent with recent surgery. 2 surgical drains are present within the ventral abd ominal wall, entering the abdominal wall in the ventral pelvis bilaterally. No organized/drainable fl uid collection is identified. IMPRESSION: 1. Findings are consistent with a high-grade small bowel obstruction. A transition point is identifie d in the ventral left mid abdomen, and this is likely on the basis of adhesions. 2. There is trace interloop fluid and mild infiltration around the transition point. 3. No intraperitoneal free air is identified. There is no pneumatosis intestinalis or portal venous g as. 4. Postoperative change is seen involving the stomach and the distal descending colon. 5. Postoperative change is seen within the ventral wall of the lower abdomen and pelvis as detailed a adina with [address] Correlate with the operative history. No organized/drainable fl uid collection is identified. 6. Stents are again seen within the inferior vena cava and the iliac veins as above. 7. Left-sided nephrolithiasis. 8. Cardiomegaly. 9. The distal esophagus is dilated and filled with fluid. Note that this may place the patient at [facility] for aspiration. 10. Additional findings as above. ACT 112: Negative or not required by law. Electronically signed by: Leena Sylvester M.D. 05/16/2021 11:24 AM
--- NOTE | 2021-05-16 12:15 | History & Physical Report ---
Date of Service May 16, 2021 Assessment & Plan (1) Small bowel obstruction due to postoperative adhesions: Plan: -Admit to PCU -Strict n.p.o., NG tube inserted, out 1 full canister and nearly second 1 full in the ER, liquid brown outs, continue at LIS - consult general surgery, Dr. Bender, discussed with him at bedside, continue conservative care for now, Dr. 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 tomorrow - LR at 125 mL - WBC 16.76, afebrile - Antiemetics, supportive care, encourage ambulation if able, pain control - Convert all medications to IV for now (2) CHF (congestive heart failure): Plan: - History of CO, ischemic cardiomyopathy - Hold Bumex and losartan in setting of AUGUST, n/v and Npo status for SBO as above, monitor volume status closely - Strict I&Os, daily weight (3) CAD (coronary artery disease): Plan: - Continue carvedilol converted to IV form -Holding plavix, coumadin, Lovenox bridge for possible surgical intervention regarding small bowel, INR 2.2, trend with daily labs. Last dose of Plavix was 05/14, last dose Coumadin was 05/15, last dose Lovenox IV on 05/15 in the evening - EKG ordered (4) Dyslipidemia: Plan: - Cont statin once allowed po meds (5) Diabetes mellitus, type II: Plan: - Recent a1c 6.5 in February 2021, diet controlled - SSI while in-patient - BSG AC HS (6) JOSE on CPAP: Plan: - Cont Cpap HS (7) Hypothyroidism: Plan: -Continue levothyroxine but will convert to IV (8) Morbid obesity: Plan: - bmi of 31.2, diet and exercise to be encouraged. - Ambulation encouraged with SBO (9) Acute kidney injury superimposed on CKD: Plan: - AUGUST with Cr. of 1.45, was 0.95 just 2 days ago, follow with am labs - Holding bumex, losartan, continue LR (10) Chronic deep vein thrombosis (DVT): Plan: - Coumadin, lovenox and plavix on hold for possible surgical intervention - resume once able Care was discussed with the patient's brother, Guru Chance, he can be reached at [phone]. DVT PPx: - teds, scds CODE: Full code Dispo: From home, likely to remain in the hospital x 1-2 days History of Present Illness Primary Care Provider: Amparo Fairchild MD This is a 60yo M with a PMH of CAD, history of CO, ischemic cardiomyopathy, hypothyroidism, hypertension, CKD 3, BPH, recently diagnosed type 2 diabetes and diet-controlled, JOSE on CPAP, chronic bilateral lower extremity DVTs on Coumadin and other medical problems as below who is POD#5 s/p infected abdominal wall exploration with explant of old mesh, component separation, abdominal wall reconstruction with biological mesh by Dr. Tejeda on 05/11/21. Pt represents to the ER with intractable nausea and vomiting times the past 2 days since being home. He has been only tolerating clear liquid since Monday but felt well on discharge last Monday. After being home, he noticed increased abdominal bloating, distension and nausea. Two LAINEY drains in place and reports that he emptied the one on his right with 20 mL out and one on left with 50 mL out prior to getting here in the ER. Since then there has been nearly no drainage out of both. He reports no formed bowel movement since prior to surgery. He denies fever, chills or sweats, no shortness of breath or chest pain. His brother, Guru is present at bedside. Today found to have high-grade small bowel obstruction on CT of the abdomen. Allergies Allergy/AdvReac Type Severity Reaction Status Date / Time piperacillin [From Zosyn] Allergy Mild fever and Verified 05/16/21 08:53 chills tazobactam [From Zosyn] Allergy Mild fever and Verified 05/16/21 08:53 chills Home Medications Medication Instructions Recorded Confirmed Type atorvastatin 80 mg tablet (Lipitor) 80 mg PO QAM 03/25/21 05/16/21 History carvedilol 25 mg tablet (Coreg) 25 mg PO BID 03/25/21 05/16/21 History clopidogrel 75 mg tablet (Plavix) 75 mg PO QAM 03/25/21 05/16/21 History ferrous sulfate 325 mg (65 mg 325 mg PO TID 03/25/21 05/16/21 History iron) tablet (Feosol) losartan 50 mg tablet (Cozaar) 50 mg PO QAM 03/25/21 05/16/21 History slcjfsfg-pij-zewwt acid 0.4 1 tab PO QAM 03/25/21 05/16/21 History mg-lycopene 300 mcg-lutein 250 mcg tablet (Centrum Silver) potassium chloride 10 mEq 10 meq PO QAM 03/25/21 05/16/21 History capsule,extended release tamsulosin 0.4 mg capsule (Flomax) 0.4 mg PO QAM 03/25/21 05/16/21 History bumetanide 1 mg tablet 1.5 mg PO QAM tab 04/07/21 05/16/21 History gabapentin 300 mg capsule 300 mg PO BID cap 04/07/21 05/16/21 History (Neurontin) levothyroxine 200 mcg capsule 200 mcg PO DAILYBB 04/07/21 05/16/21 History (Tirosint) warfarin 2.5 mg tablet (Jantoven) 2.5 mg PO HS tab 04/07/21 05/16/21 History enoxaparin 150 mg/mL subcutaneous 150 mg SUBCUT Q12H 05/11/21 05/16/21 History syringe (Lovenox) finasteride 5 mg tablet (Proscar) 5 mg PO QAM 05/11/21 05/16/21 History levothyroxine 50 mcg tablet 50 mcg PO DAILYBB 05/11/21 05/16/21 History (Synthroid) methocarbamol 500 mg tablet 500 mg PO DAILY PRN 05/11/21 05/16/21 History oxycodone-acetaminophen 5 mg-325 1 tab PO Q6H PRN 05/16/21 05/16/21 History mg tablet (Percocet) Past Med/Surg History Medical History BPH (benign prostatic hyperplasia) CAD (coronary artery disease) Had cardiac cath- was told he had old CO with small vessel (2014) and medication management recommended per cardio records Did have repeat cardiac cath 2019 that showed no significant changes from 2014- medical management still recommended CHF (congestive heart failure) Ischemic CM per records EF ranging 30-45% since 2013 EF improved to 50-54% with 2020 ECHO Chronic deep vein thrombosis (DVT) Chronic kidney disease Stage 3 Diabetes mellitus, type II Dyslipidemia H/O deep venous thrombosis 2016 (complication from immobility from surgery)-- bilateral LE and takes warfarin Hypertension Per records Hypothyroidism JOSE on CPAP Per records 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 Tejeda 05-11-2021 H/O colonoscopy 2018 History of colostomy 2017 - due to ulcer History of colostomy reversal 2019 History of gastric surgery hx of vertical banded gastroplasty History of incisional hernia repair Incisional hernia repair with Ventrio mesh 15x25.7cm and Biologic integra 10x12.5cm as a layered mesh Ventrio first, then Integra. (2019) History of intravascular stent placement 2017 dvt IVC filter and then filter was removed Previous back surgery 2017 discectomy fusion one internal and then posterior fusion Family History Mother Clotting disorder Diabetes Hypertension Father Diabetes Hypertension Other Coronary heart disease Social History Smoking Status: Never smoker Second Hand Exposure: No; Hx Alcohol Use: Yes Alcohol type: hard liquor Hx Substance Use: No Preferred Language: Lao Communication Ability: Effective Corporate Officer Required: No Beliefs That Will Affect Care: None marital status: Single Current Living Situation: Family current occupational status: disabled How many Children do You have: 0 Other Information That Helps Us Care for You: No Feels Safe at Home: Yes Safety Concerns: Feels Safe At This Time Sunscreen Use: No Assistive Devices: Glasses and Walker Review of Systems Review of Systems: Constitutional: No fever, sweats or chills Eyes: No diplopia, no worsening or blurred vision ENT: normal hearing, no trouble swallowing Respiratory: No cough, sputum, dyspnea at rest or on exertion Cardiovascular: No chest pain, tightness or palpitations Abdomen: As per HPI. Musculoskeletal: No joint pain, calf pain, swelling Neurologic: No weakness, numbness/tingling, or balance problems Psychiatric: No anxiety or depression Skin: No rash or itch Physical Exam Physical Exam: General: awake, alert, no apparent distress, + morbidly obese, BMI 31.2 Head: Normocephalic, atraumatic ENT: PERRL, EOMI, no pharyngeal exudate, mucous membranes moist, + NGT in place draining dark bilous/brown liquid Chest: Clear to auscultation, on room air, no adventitious breath sounds Cardiac: Regular rate and rhythm, no murmur, no JVD, normal peripheral pulses, good capillary refill Abdominal: Vertical incision with nikita intact, no surrounding erythema, drainage or concern for infection, dressing is bloody and removed by general surgery at bedside, moderate hematoma visible over left upper quadrant with some edema, [address]; LLQ and RLQ. Bowel sounds present x 4 quadrants, no high-pitched tinkling, + distended, + tender to palpation near incision site, no rebound or guarding Extremities: Normal inspection, +1+ pitting peripheral edema of BLE, no erythema, calfs nontender to palpation Psych: Normal mood and affect Neuro: AAO x 3, strength intact bilaterally and rated 5/5, no motor deficits, speech is clear, no peripheral sensory deficits Results & Data Results & Data ([facility]) Vital Signs (Past 12 Hours) Vital Signs Temp Pulse Pulse Resp BP BP Pulse Ox 05/16/21 10:00 70 20 126/80 95 05/16/21 07:58 36.4 C L 89 20 117/77 95 Diagnostic Findings Chest X-Ray 05/16/21 08:41 SINGLE VIEW CHEST CLINICAL HISTORY: Vomiting. FINDINGS: An AP, portable, upright chest radiograph is compared to study dated 05/13/2021. The heart is enlarged. The pulmonary vasculature is noncongested. Bibasilar opacities likely represent scarring/atelectasis. No large pleural effusion or pneumothorax is seen. The skeletal structures are osteopenic. The bony thorax is grossly intact. Extensive fusion hardware is seen in the lower cervical spine. IMPRESSION: 1. Cardiomegaly without radiographic evidence of congestive failure. 2. Bibasilar opacities likely represent scarring/atelectasis. This is similar to previous and clinical correlation will be required. ACT 112: Negative or not required by law. Electronically signed by: Nick Sylvester M.D. 05/16/2021 9:13 AM Abdomen/Pelvis CT 05/16/21 09:59 CT SCAN OF THE ABDOMEN AND PELVIS WITH IV CONTRAST CLINICAL HISTORY: Generalized abdominal pain. Vomiting. Unspecified surgical history. COMPARISON STUDY: Abdominal CT dated 01/19/2021. TECHNIQUE: Following the IV administration of 93 cc of Optiray 320, CT scan of the abdomen and pelvis is performed from the lung bases to the proximal femora. Images are reviewed in the axial, sagittal, and coronal planes. IV contrast was administered without complication. A dose lowering technique was utilized adhering to the principles of ALARA. The examination is degraded by motion artifact. CT DOSE: 2407.36 mGy.cm FINDINGS: Lung bases: The heart is enlarged and without pericardial effusion. There are coronary artery calcifications. There are numerous calcified granulomas. Scarring/atelectasis is seen at the lung bases. No airspace consolidation typical for pneumonia or pleural effusion is identified. The distal esophagus is distended and filled with fluid. Gynecomastia is noted. Liver: The contrast-enhanced liver is normal in size, contour, and attenuation. There is no intrahepatic biliary ductal dilatation. The hepatic veins and portal veins are patent. Gallbladder: The gallbladder is distended but otherwise normal in appearance. Spleen: Normal in size and attenuation. Pancreas: Moderately atrophic and grossly unremarkable. Adrenal glands: Unremarkable. Kidneys: The contrast enhanced kidneys are atrophic and without hydronephrosis. The kidneys enhance symmetrically. Nonobstructing left renal calculi measure up to 10 mm. Abdominal vasculature: The abdominal aorta is normal in course and caliber noting mild atherosclerotic calcification. Stents are present within the mid to distal inferior vena cava, the common iliac veins, and the right external iliac vein. These are patent as visualized. Stomach and bowel: There is extensive postoperative change seen involving the stomach. The stomach and proximal small bowel loops are markedly distended and filled with fluid. Small bowel loops measure up to 6.1 cm diameter. A focal transition point is identified in the ventral left midabdomen on image #[id number]. The distal small bowel and colon are decompressed, and findings are consistent with a high-grade small bowel obstruction. There is trace interloop fluid and mild inflammatory change at the transition point. No focally thick walled bowel loops are identified. There is no pneumatosis intestinalis or portal venous gas. Postoperative change is also noted in the distal descending colon. Residual enteric contrast is noted in the colon. The appendix is well-visualized and normal. Peritoneum: There is no intraperitoneal free air or abdominal ascites. Lymphadenopathy: None. Pelvic viscera: The prostate gland is enlarged and heterogeneous noting median lobe hypertrophy. The bladder and seminal vesicles are normal as visualized. There are bilateral fat-containing inguinal hernias. Skeletal structures: The skeletal structures appear osteopenic. There is mild to moderate lumbosacral spondylosis. No lytic or blastic lesions are seen. Soft tissues: Findings suggest previous ventral hernia repair. Midline skin clips are noted in the lower abdomen and pelvis. There is induration, trace fluid, and foci subcutaneous gas within the ventral abdominal wall consistent with recent surgery. 2 surgical drains are present within the ventral abdominal wall, entering the abdominal wall in the ventral pelvis bilaterally. No organized/drainable fluid collection is identified. IMPRESSION: 1. Findings are consistent with a high-grade small bowel obstruction. A transi tion point is identified in the ventral left mid abdomen, and this is likely on the basis of adhesions. 2. There is trace interloop fluid and mild infiltration around the transition point. 3. No intraperitoneal free air is identified. There is no pneumatosis intestinalis or portal venous gas. 4. Postoperative change is seen involving the stomach and the distal descending colon. 5. Postoperative change is seen within the ventral wall of the lower abdomen and pelvis as detailed above with [address] Correlate with the operative history. No organized/drainable fluid collection is identified. 6. Stents are again seen within the inferior vena cava and the iliac veins as above. 7. Left-sided nephrolithiasis. 8. Cardiomegaly. 9. The distal esophagus is dilated and filled with fluid. Note that this may place the patient at risk for aspiration. 10. Additional findings as above. ACT 112: Negative or not required by law. Electronically signed by: Nick Sylvester M.D. 05/16/2021 11:24 AM ECG Rhythm: normal sinus Additional Comments: Ordered Code Status & VTE Plan Code Status Full code-discussed with patient at bedside Supervising Physician Co-Signing Physician Notes Attending Addendum: care coordinated with MARIE Najera please refer to her notes for full details, I agree with her notes patient seen and examined, records reviewed by myself as well on exam, patient seen resting in bed, not in distress uncomfortable due to abdominal pain otherwise pleasant no chest pain, dyspnea, palpitations, dizziness no other symptoms VS noted and reviewed oriented x3, not in distress, speaks in sentences with no effort nor accessory muscle use normal rate, regular rhythm, no murmurs clear breath sounds bilaterally mildly distended, soft, mild tenderness on all quadrants no bipedal edema, erythema, warmth no neuro deficits WBC 16.7 Hg 10.9 Crea 1.49 ASSESSMENT AND PLAN> 60 y/o male with history of CAD, CHF, DM, Chronic DVT presenting with SBO. SBO RECENT EXCHANGE OF INFECTED ABDOMINAL WALL MESH -- NPO NG tube, intermittent suction -- IV fluids PRN Dilaudid, scheduled Ofirmev -- hold off oral medications HISTORY OF CHRONIC DVT -- INR 2.2 hold coumadin, lovenox other diagnoses and plan of care as per MARIE Piña's notes plan of care discussed with patient in detail and at length all questions answered he is understanding, agreeable, comfortable with the plan of care Inocencio Lind MD
[2021-05-16] MEDS ORDERED: HYDROmorphone INJ 1 MG/ML SYRINGE IV STA (12:28)
--- NOTE | 2021-05-16 13:18 | Surgery Consultation ---
Date of Consultation May 16, 2021 Assessment & Plan (1) Small bowel obstruction due to postoperative adhesions: SBO agree with ngt IVF dry dressings daily jps to suction NPO await bowel function OOB and ambulate History of Present Illness History of Present Illness This is a 60yo M who is POD#5 s/p infected abdominal wall exploration with removal of mesh, component separation and subsequent abdominal wall recon struction with biological mesh by Dr. Tejeda with two LAINEY drains laterally. He called me last night with some mild nausea and vomiting which got progressively worse overnight. I sent him to the ED with intractable nausea and vomiting. A CT scan done showa high-grade small bowel obstruction. An NGT is placed. Allergies Allergy/AdvReac Type Severity Reaction Status Date / Time piperacillin [From Zosyn] Allergy Mild fever and Verified 05/16/21 08:53 chills tazobactam [From Zosyn] Allergy Mild fever and Verified 05/16/21 08:53 chills Home Medications Medication Instructions Recorded Confirmed Type atorvastatin 80 mg tablet (Lipitor) 80 mg PO QAM 03/25/21 05/16/21 History carvedilol 25 mg tablet (Coreg) 25 mg PO BID 03/25/21 05/16/21 History clopidogrel 75 mg tablet (Plavix) 75 mg PO QAM 03/25/21 05/16/21 History ferrous sulfate 325 mg (65 mg 325 mg PO TID 03/25/21 05/16/21 History iron) tablet (Feosol) losartan 50 mg tablet (Cozaar) 50 mg PO QAM 03/25/21 05/16/21 History kuntnpht-koo-cvxrp acid 0.4 1 tab PO QAM 03/25/21 05/16/21 History mg-lycopene 300 mcg-lutein 250 mcg tablet (Centrum Silver) potassium chloride 10 mEq 10 meq PO QAM 03/25/21 05/16/21 History capsule,extended release tamsulosin 0.4 mg capsule (Flomax) 0.4 mg PO QAM 03/25/21 05/16/21 History bumetanide 1 mg tablet 1.5 mg PO QAM tab 04/07/21 05/16/21 History gabapentin 300 mg capsule 300 mg PO BID cap 04/07/21 05/16/21 History (Neurontin) levothyroxine 200 mcg capsule 200 mcg PO DAILYBB 04/07/21 05/16/21 History (Tirosint) warfarin 2.5 mg tablet (Jantoven) 2.5 mg PO HS tab 04/07/21 05/16/21 History enoxaparin 150 mg/mL subcutaneous 150 mg SUBCUT Q12H 05/11/21 05/16/21 History syringe (Lovenox) finasteride 5 mg tablet (Proscar) 5 mg PO QAM 05/11/21 05/16/21 History levothyroxine 50 mcg tablet 50 mcg PO DAILYBB 05/11/21 05/16/21 History (Synthroid) methocarbamol 500 mg tablet 500 mg PO DAILY PRN 05/11/21 05/16/21 History oxycodone-acetaminophen 5 mg-325 1 tab PO Q6H PRN 05/16/21 05/16/21 History mg tablet (Percocet) Patient History Medical History BPH (benign prostatic hyperplasia) CAD (coronary artery disease) Had cardiac cath- was told he had old TN with small vessel (2014) and medication management recommended per cardio records Did have repeat cardiac cath 2019 that showed no significant changes from 2014- medical management still recommended CHF (congestive heart failure) Ischemic CM per records EF ranging 30-45% since 2013 EF improved to 50-54% with 2020 ECHO Chronic deep vein thrombosis (DVT) Chronic kidney disease Stage 3 Diabetes mellitus, type II Dyslipidemia H/O deep venous thrombosis 2016 (complication from immobility from surgery)-- bilateral LE and takes warfarin Hypertension Per records Hypothyroidism JOSE on CPAP Per records 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 Tejeda 05-11-2021 H/O colonoscopy 2019 History of colostomy 2017 - due to ulcer History of colostomy reversal 2019 History of gastric surgery hx of vertical banded gastroplasty History of incisional hernia repair Incisional hernia repair with Ventrio mesh 15x25.7cm and Biologic integra 10x12.5cm as a layered mesh Ventrio first, then Integra. 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: No Beliefs That Will Affect Care: None marital status: Single Current Living Situation: Family current occupational status: disabled How many Children do You have: 0 Feels Safe at Home: Yes Sunscreen Use: No Assistive Devices: Glasses and Walker Review of Systems Constitutional: + anorexia; no fever and no chills Eyes: no problem reported Ear, Nose, Mouth, Throat: no problem reported Respiratory: no cough and no dyspnea Cardiovascular: no chest pain Gastrointestinal: + abdominal pain, + nausea, + vomiting and + change in bowel habits Genitourinary: no dysuria Musculoskeletal: no back pain and no neck pain Neurologic: no localized weakness and no generalized weakness Physical Exam Constitutional: well developed, well nourished and + morbidly obese Eyes: PERRL, conjunctivae normal, anicteric sclerae ENMT: external ear and nose normal, oropharynx normal Neck: trachea midline Respiratory: normal respiratory effort, lungs clear to auscultation Cardiovascular: RRR, no murmur, no edema Gastrointestinal (Abdomen): Inspection/Auscultation: abdomen normal to inspection, + abdomen distended and normal bowel sounds Percussion/Palpation: + abdomen tender and abdomen soft; no guarding and abdomen not rigid Musculoskeletal: Head/Neck/Chest: normocephalic and head atraumatic Skin: no rashes, warm and dry Psychiatric: Orientation: alert, oriented x 3 and cooperative Results & Data ([place]) Vital Signs (Past 12 Hours) Vital Signs Temp Pulse Pulse Resp BP BP Pulse Ox 05/16/21 12:00 78 18 142/86 H 92 05/16/21 10:00 70 20 126/80 95 05/16/21 07:58 36.4 C L 89 20 117/[address] SCAN OF THE ABDOMEN AND PELVIS WITH IV CONTRAST CLINICAL HISTORY: Generalized abdominal pain. Vomiting. Unspecified surgical history. COMPARISON STUDY: Abdominal CT dated 01/19/2021. TECHNIQUE: Following the IV administration of 93 cc of Optiray 320, CT scan of the abdomen and pelvis is performed from the lung bases to the proximal femora. Images are reviewed in the axial, sagittal, and coronal planes. IV contrast was administered without complication. A dose lowering technique was utilized adhering to the principles of ALARA. The examination is degraded by motion artifact. CT DOSE: 2407.36 mGy.cm FINDINGS: Lung bases: The heart is enlarged and without pericardial effusion. There are coronary artery calcifications. There are numerous calcified granulomas. Scarring/atelectasis is seen at the lung bases. No airspace consolidation typical for pneumonia or pleural effusion is identified. The distal esophagus is distended and filled with fluid. Gynecomastia is noted. Liver: The contrast-enhanced liver is normal in size, contour, and attenuation. There is no intrahepatic biliary ductal dilatation. The hepatic veins and portal veins are patent. Gallbladder: The gallbladder is distended but otherwise normal in appearance. Spleen: Normal in size and attenuation. Pancreas: Moderately atrophic and grossly unremarkable. Adrenal glands: Unremarkable. Kidneys: The contrast enhanced kidneys are atrophic and without hydronephrosis. The kidneys enhance symmetrically. Nonobstructing left renal calculi measure up to 10 mm. Abdominal vasculature: The abdominal aorta is normal in course and caliber noting mild atherosclerotic calcification. Stents are present within the mid to distal inferior vena cava, the common iliac veins, and the right external iliac vein. These are patent as visualized. Stomach and bowel: There is extensive postoperative change seen involving the stomach. The stomach and proximal small bowel loops are markedly distended and filled with fluid. Small bowel loops measure up to 6.1 cm diameter. A focal transition point is identified in the ventral left midabdomen on image #[id number]. The distal small bowel and colon are decompressed, and findings are consistent with a high-grade small bowel obstruction. There is trace interloop fluid and mild inflammatory change at the transition point. No focally thick walled bowel loops are identified. There is no pneumatosis intestinalis or portal venous gas. Postoperative change is also noted in the distal descending colon. Residual enteric contrast is noted in the colon. The appendix is well-visualized and normal. Peritoneum: There is no intraperitoneal free air or abdominal ascites. Lymphadenopathy: None. Pelvic viscera: The prostate gland is enlarged and heterogeneous noting median lobe hypertrophy. The bladder and seminal vesicles are normal as visualized. There are bilateral fat-containing inguinal hernias. Skeletal structures: The skeletal structures appear osteopenic. There is mild to moderate lumbosacral spondylosis. No lytic or blastic lesions are seen. Soft tissues: Findings suggest previous ventral hernia repair. Midline skin clips are noted in the lower abdomen and pelvis. There is induration, trace fluid, and foci subcutaneous gas within the ventral abdominal wall consistent with recent surgery. 2 surgical drains are present within the ventral abdominal wall, entering the abdominal wall in the ventral pelvis bilaterally. No organized/drainable fluid collection is identified. IMPRESSION: 1. Findings are consistent with a high-grade small bowel obstruction. A transition point is identified in the ventral left mid abdomen, and this is likely on the basis of adhesions. 2. There is trace interloop fluid and mild infiltration around the transition point. 3. No intraperitoneal free air is identified. There is no pneumatosis inte stinalis or portal venous gas. 4. Postoperative change is seen involving the stomach and the distal descending colon. 5. Postoperative change is seen within the ventral wall of the lower abdomen and pelvis as detailed above with [address] Correlate with the operative history. No organized/drainable fluid collection is identified. 6. Stents are again seen within the inferior vena cava and the iliac veins as above. 7. Left-sided nephrolithiasis. 8. Cardiomegaly. 9. The distal esophagus is dilated and filled with fluid. Note that this may place the patient at risk for aspiration. 10. Additional findings as above.
[2021-05-16] MEDS ORDERED: GLUCOSE 40% GEL 15 GM TUBE PO PRN (14:16)
[2021-05-16] MEDS ORDERED: DEXTROSE 50% 50 ML SYRINGE IV PRN (14:16)
[2021-05-16] MEDS ORDERED: GLUCOSE 10 TABS/TUBE PO PRN (14:16)
[2021-05-16] MEDS ORDERED: ONDANSETRON INJ 2 MG/ML 2 ML VIAL IV PRN (14:16)
[2021-05-16] MEDS ORDERED: ACETAMINOPHEN 325 MG TAB PO PRN (14:16)
[2021-05-16] MEDS ORDERED: PROMETHAZINE HCL 12.5 MG in SODIUM CHLORIDE 0.9% 50 ML IV PRN (14:16)
[2021-05-16] MEDS ORDERED: METOPROLOL TARTRATE 1 MG/ML VIAL IV PRN (14:16)
[2021-05-16] MEDS ORDERED: CARBOHYDRATES FOR HYPOGLYCEMIA PO PRN (14:16)
[2021-05-16] MEDS ORDERED: GLUCAGON FOR INJ 1 MG VIAL SQ PRN (14:16)
[2021-05-16] MEDS ORDERED: HYDROmorphone INJ 0.5 MG/0.5 ML SYR IV PRN (15:14)
[2021-05-16] MEDS ORDERED: CEFEPIME CONSULT ACTIVE PRN (15:28)
[2021-05-16] MEDS: LACTATED RINGER'S 1,000 ML IV SCH ×2 (15:32→23:17)
[2021-05-16] MEDS: ACETAMINOPHEN 1,000 MG/100 ML VIAL IV SCH (16:29)
[2021-05-16] MEDS: CEFEPIME 2,000 MG in SYRINGE 7.5 ML IV SCH (16:29)
[2021-05-16] MEDS: INSULIN ASPART 100 UNITS/ML 3 ML PEN SC SCH ×2 (16:29→23:49)
[2021-05-16] MEDS: HYDROmorphone INJ 1 MG/ML SYRINGE IV PRN ×3 (17:29→23:45)
[2021-05-16] MEDS ORDERED: ACETAMINOPHEN 1000 MG/100 ML IV IV PRN (20:04)
[2021-05-16] MEDS ORDERED: traMADol HCL 50 MG TABLET PO STA (21:55)
[2021-05-16 22:54] LABS: Appearance Urine Cloudy (Clear); Bacteria Urine Automated Negative (Negative); Blood Urine Trace (Negative); Color Urine Dark Yellow; Epithelial Cell Urine Auto >30 /lpf (0-5); Glucose Urine UA Negative (Negative); Ketones Urine Trace (Negative); Leukocyte Esterase Urine Trace (Negative); Nitrite Urine Negative (Negative); Protein Urine 1+ (Negative); Specific Gravity Urine > 1.045 (1.000-1.030); Urobilinogen Urine Negative (Negative); pH Urine 5.5 (4.5-7.5)
[2021-05-16 22:55] LABS: Bilirubin Urine 1+ (Negative)
[2021-05-16 23:07] LABS: Mucus Urine Present (None Prsent)
[2021-05-17] MEDS: ACETAMINOPHEN 1,000 MG/100 ML VIAL IV SCH ×3 (01:02→17:06)
[2021-05-17] MEDS: CEFEPIME 2,000 MG in SYRINGE 7.5 ML IV SCH ×3 (04:44→21:41)
[2021-05-17 05:58] LABS: Hemoglobin 8.5 g/dL (14.0-18.0); Mean Corpuscular Hemoglobin 27.9 pg (25-34); Mean Corpuscular Hgb Conc 30.4 g/dL (32-36); Mean Corpuscular Volume 91.8 fL (80-100); Mean Platelet Volume 9.6 fL (7.4-10.4); Platelet Count 279 K/uL (130-400); RDW Coefficient of Variation 18.3 % (11.5-14.5); RDW Standard Deviation 60.8 fL (36.4-46.3); Red Blood Count 3.05 M/uL (4.7-6.1); White Blood Count 14.45 K/uL (4.8-10.8)
[2021-05-17] MEDS: HYDROmorphone INJ 1 MG/ML SYRINGE IV PRN ×4 (06:04→23:36)
[2021-05-17 06:08] LABS: INR 2.4 (0.9-1.1); Prothrombin Time 22.3 Seconds (9.0-12.0)
[2021-05-17 06:37] LABS: Albumin Level 2.5 gm/dl (3.4-5.0); Calcium 8.8 mg/dl (8.5-10.1); Creatinine Clr Calc Pharmacy 99.2 ml/min; Est GFR (African American) 62.2 ml/min; Est GFR (Non-African American) 53.7 ml/min; Magnesium 2.3 mg/dl (1.8-2.4); Potassium 4.7 mmol/L (3.5-5.1)
[2021-05-17 06:44] LABS: Albumin Globulin Ratio 0.6 (0.9-2); Bilirubin,Total 0.5 mg/dl (0.2-1); Globulin 4.2 gm/dl (2.5-4.0); Phosphorus 4.4 mg/dl (2.5-4.9); Total Protein 6.7 gm/dl (6.4-8.2)
[2021-05-17] MEDS: LACTATED RINGER'S 1,000 ML IV SCH (07:20)
[2021-05-17] MEDS: INSULIN ASPART 100 UNITS/ML 3 ML PEN SC SCH ×3 (07:33→17:29)
[2021-05-17] MEDS: FINASTERIDE 5 MG TAB PO SCH (07:35)
--- NOTE | 2021-05-17 08:16 | Surgery Progress Note ---
Date of Service May 17, 2021 Assessment & Plan (1) SBO (small bowel obstruction): Plan: some improvement continue NG, IVF check XR as above. feeling much better than yesterday. IVF bolus--still dry. will need to restart lovenox and hold warfarin/plavix recheck KUB. keep ngt. wound looks great. right LAINEY came out during ct scan per pt. left side with scan serousanguinous. no pain. Admission and Anticipated Discharge Date Admission Date: May 16, 2021 Subjective feels better after NG, some flatus, no recent BM, was eating small amounts such as crackers at home Physical Exam Gastrointestinal (Abdomen): Inspection/Auscultation: + abdominal surgical drain present (right fell out, left minimal drainage); abdomen not distended Percussion/Palpation: abdomen soft NG 400 overnight Results & Data ([facility]) Vital Signs (Past 12 Hours) Vital Signs Temp Pulse Pulse Resp BP Pulse Ox 05/17/21 06:45 36.8 C 93 H 18 137/81 96 05/17/21 04:00 36.8 C 81 18 118/74 98 05/16/21 23:47 36.5 C 82 18 152/92 H 96 05/16/21 23:11 78 05/16/21 22:05 82 18 92 PG Care Time/CCT Total # of Minutes Spent Total Time Spent with Patient: Total time spent is greater than 50% in coordination of care (as documented) at patient's floor/unit and/or counseling patient: Coding Level of Care Code None Diagnoses SBO (small bowel obstruction) K56.609
[2021-05-17] MEDS ORDERED: SODIUM CHLORIDE 0.9% 1000ML 1,000 ML IV ONE (08:37)
[2021-05-17] MEDS ORDERED: LEVOTHYROXINE SODIUM IV SCH (09:00)
--- NOTE | 2021-05-17 10:57 | XRay Report ---
XR abdomen min 2V CLINICAL HISTORY: Small bowel obstruction. COMPARISON STUDY: CT of the abdomen and pelvis May 16, 2021. FINDINGS: Incidental note is made of contrast within the bladder from recent contrast-enhanced CT. E ndovascular stent graft is incidentally noted. Several loops of significantly dilated small bowel are noted. Small bowel loops measure up to 8.5 cm in caliber. Small bowel dilatation has slightly increa sed since prior examination. The stomach is likely distended and contains an air-fluid level. There i s possible visualization of a nasogastric tube which appears to project over the distal esophagus. IMPRESSION: 1. Increase in significant small bowel dilatation. The findings represent a persistent small bowel ob struction. 2. Possible visualization of a nasogastric tube. Tip appears to project over the distal esophagus. If nasogastric tube in place, the tube could be advanced. Suspected distended stomach with air-fluid le vini. ACT 112: Negative or not required by law. Electronically signed by: Pedro Sharpe M.D. 05/17/2021 10:56 AM
--- NOTE | 2021-05-17 18:54 | Hospitalist Progress Note ---
Date of Service May 17, 2021 Assessment & Plan (1) Small bowel obstruction due to postoperative adhesions: Plan: pain improved with Dilaudid as needed Ofirmev IV scheduled Repeat KUB: No significant change Continue NG tube with intermittent suctioning IV fluids General surgery on board (2) CHF (congestive heart failure): Plan: - History of DC, ischemic cardiomyopathy - Hold Bumex and losartan in setting of AUGUST, n/v and Npo status for SBO as above - patient on the dry side (3) CAD (coronary artery disease): Plan: - Holding plavix, coumadin (4) Dyslipidemia: Plan: - Cont statin once allowed po meds (5) Diabetes mellitus, type II: Plan: - Recent a1c 6.5 in February 2021, diet controlled - SSI while in-patient - BSG AC HS (6) JOSE on CPAP: Plan: - Cont Cpap HS (7) Hypothyroidism: Plan: -Continue levothyroxine but will convert to IV (8) Morbid obesity: Plan: - bmi of 31.2, diet and exercise to be encouraged. - Ambulation encouraged with SBO (9) Acute kidney injury superimposed on CKD: Plan: - AUGUST with Cr. of 1.45, was 0.95 just 2 days ago, follow with am labs - Holding bumex, losartan, continue LR - crea 1.4 Continue IV fluids (10) Chronic deep vein thrombosis (DVT): Plan: -INR 2.3 Hold Coumadin May need heparin drip once INR is below 2 Care was discussed with the patient's brother, Guru Chance, he can be reached at [phone]. DVT PPx: - khari, scds CODE: Full code Dispo: From home plan of care discussed with patient in detail and at length all questions answered he is understanding, agreeable, comfortable with the plan of care Admission and Anticipated Discharge Date Admission Date: May 16, 2021 Subjective ff up for SBO, etc seen resting in bed, comfortable NG tube in states pain is better today no nausea no chest pain, dyspnea, palpitations, dizziness no other symptoms Review of Systems Review of Systems: all noted and negative except for above Physical Exam Physical Exam: General- oriented x 3, not in distress, speaks in sentences with no effort or accessory muscle use Eyes- anicteric Neck- no JVD Lungs- clear BS BL Heart- normal rate, regular rhythm; no murmurs Abdomen- normal bowel sounds, Mildly distended, soft, nontender Extremities- no pretibial edema, no calf tenderness Neuro- alert, oriented x 3; no gross focal neurologic deficits Skin- warm & dry Results & Data Results & Data ([facility]) Vital Signs (Past 12 Hours) Vital Signs Temp Pulse Pulse Resp BP Pulse Ox 05/17/21 15:55 90 05/17/21 15:54 36.6 C 85 18 130/78 92 05/17/21 12:06 36.7 C 88 18 152/77 H 91 05/17/21 08:00 74 all noted and reviewed including below
[2021-05-17] MEDS ORDERED: Nursing to Pharmacy Communication SCH (19:15)
[2021-05-17] MEDS: D5W AND NSS 1,000 ML IV SCH (19:32)
[2021-05-18] MEDS: INSULIN ASPART 100 UNITS/ML 3 ML PEN SC SCH ×2 (00:18→06:08)
[2021-05-18] MEDS: ACETAMINOPHEN 1,000 MG/100 ML VIAL IV SCH ×2 (00:20→08:34)
[2021-05-18] MEDS: D5W AND NSS 1,000 ML IV SCH ×2 (02:42→10:02)
[2021-05-18] MEDS: CEFEPIME 2,000 MG in SYRINGE 7.5 ML IV SCH ×3 (05:23→22:16)
[2021-05-18 06:15] LABS: Hematocrit (blood only) 23.5 % (42-52); Hemoglobin 7.4 g/dL (14.0-18.0); Mean Corpuscular Hemoglobin 28.5 pg (25-34); Mean Corpuscular Hgb Conc 31.5 g/dL (32-36); Mean Corpuscular Volume 90.4 fL (80-100); Mean Platelet Volume 9.8 fL (7.4-10.4); Platelet Count 280 K/uL (130-400); RDW Coefficient of Variation 18.6 % (11.5-14.5); RDW Standard Deviation 60.9 fL (36.4-46.3)
[2021-05-18 06:24] LABS: INR 2.7 (0.9-1.1); Prothrombin Time 25.7 Seconds (9.0-12.0)
[2021-05-18 06:57] LABS: Albumin Globulin Ratio 0.5 (0.9-2); Albumin Level 2.2 gm/dl (3.4-5.0); BUN Creatinine Ratio 22.6 (10-20); Bilirubin,Total 0.5 mg/dl (0.2-1); Calcium 8.2 mg/dl (8.5-10.1); Creatinine Clr Calc Pharmacy 125.7 ml/min; Est GFR (Non-African American) 70.8 ml/min; Globulin 4.2 gm/dl (2.5-4.0); Potassium 3.8 mmol/L (3.5-5.1); Total Protein 6.4 gm/dl (6.4-8.2)
[2021-05-18] MEDS: FINASTERIDE 5 MG TAB PO SCH ×2 (08:35→08:37)
[2021-05-18] MEDS ORDERED: SODIUM CHLORIDE 0.9% 250 ML IV PRN ×2 (08:40→16:10)
--- NOTE | 2021-05-18 08:41 | Surgery Progress Note ---
Date of Service May 18, 2021 Assessment & Plan (1) SBO (small bowel obstruction): Plan: surgery would be quite difficult at this stage post op. would continue conservative management a few more days monitor wbc. afebrile.. on cefipime. monitor H/H .... INR still 2.7. if not decreasing by tomorrow will give some vit K sbft tomorrow. if acute sbo persisting may need to surgically intervene. Admission and Anticipated Discharge Date Admission Date: May 16, 2021 Subjective pt with no major changes. no bm. admittedly took in large amount of ice/water past 24 hours. +bs's. states he is "going crazy" not being able to take any flavor by mouth. Physical Exam Physical Exam: alert. nad abd: soft. wound looks good. LAINEY primarily serous. +bs's. Results & Data ([facility]) Vital Signs (Past 12 Hours) Vital Signs Temp Pulse Pulse Resp BP Pulse Ox 05/18/21 07:51 72 05/18/21 07:11 36.9 C 76 18 130/72 95 05/18/21 03:03 36.4 C L 80 20 120/70 90 05/18/21 00:00 83 05/17/21 23:11 37.1 C 77 18 120/74 94 PG Care Time/CCT Total # of Minutes Spent Total Time Spent with Patient: Total time spent is greater than 50% in coordination of care (as documented) at patient's floor/unit and/or counseling patient: Coding Level of Care Code None Diagnoses SBO (small bowel obstruction) K56.609
[2021-05-18 09:27] LABS: Reticulocyte % 3.6 % (0.5-2.0); Reticulocytes # 0.09 10^6/uL (0.02-0.10)
[2021-05-18 09:28] LABS: Ferritin 183.5 ng/ml (8-388)
[2021-05-18] MEDS: PANTOprazole 40 MG in SYRINGE 0 ML IV SCH ×2 (09:53→21:15)
[2021-05-18] MEDS ORDERED: Nursing to Pharmacy Communication SCH ×2 (11:00→13:00)
[2021-05-18] MEDS ORDERED: INSULIN ASPART 100 UNITS/ML 3 ML PEN SC SCH (11:30)
[2021-05-18] MEDS: metroNIDAZOLE 500 MG/100 ML BAG IV SCH ×2 (12:02→18:20)
[2021-05-18] MEDS ORDERED: IRON SUCROSE 150 MG in SODIUM CHLORIDE 0.9% 250 ML IV ONE (12:30)
--- NOTE | 2021-05-18 14:26 | Gastrointestinal Consultation ---
Date of Consultation May 18, 2021 Assessment & Plan (1) SBO (small bowel obstruction): 60 year old male admitted w/ SBO history of hernia repair post op day 7 GI asked to evaluate for anemia, previously reported chronic black stools since 2019 on PO iron and report of coffee ground emesis on 05/16. he has remained hemodynamically stable but downtrending HGB to 7 this AM. BUN in 26. He has green/brown output in NG No acute indication for endoscopy Would treat conservatively He should be followed up as an OP by GI before arranging EGD/Colonoscopy Would trend HGB Transfuse PRN per primary team Monitor and document stools and output IV PPI BID while admitted then PO PPI BID for 1 month then once daily until EGD/Colonoscopy Thank you for allowing us to participate in the care of this patient. Please call with any acute changes, questions or concerns. Please see addendum below with additional recommendation from my supervising physician. (2) S/P hernia repair: History of Present Illness Reason for Consultation: anemia Requesting Physician: Diogo Attending Physician: Inocencio Lind MD History of Present Illness 60 year old male with history of CAD, ischemic cardiomyopathy, old [place] hypothyroidism, CKD-3, HTN, T2DM, BPH, history of colostomy s/p reversal in 2019, JOSE on CPAP, chronic bilateral lower extremity DVTs on Coumadin and other medical problems as below who is POD#7 s/p infected abdominal wall exploration with explant of old mesh, component separation, abdominal wall reconstruction with biological mesh admitted w/ SBO. GI asked to evaluate for anemia. Pt was seen and evaluated, chart reviewed. Nost post-operatively developed abd pain, pressure, bloating w/ nausea/vomiting. Endorses nearly 15 episodes of emesis. At the end he was passing coffee ground appearing emesis. Since admission, he was made NPO, followed by general surgery and has NG to LIS. Presently his NG is putting out green/brown output. He denies seeing any coffee ground output or hematemesis since admission. No BM and denies blood stools. he has chronic black stools, once daily formed since starting iron for KERMIT around 2019. Denies melena. No famiy history of celiac, IBD or colon CA Allergies Allergy/AdvReac Type Severity Reaction Status Date / Time piperacillin [From Zosyn] Allergy Mild fever and Verified 05/16/21 08:53 chills tazobactam [From Zosyn] Allergy Mild fever and Verified 05/16/21 08:53 chills Home Medications Medication Instructions Recorded Confirmed Type atorvastatin 80 mg tablet (Lipitor) 80 mg PO QAM 03/25/21 05/16/21 History carvedilol 25 mg tablet (Coreg) 25 mg PO BID 03/25/21 05/16/21 History clopidogrel 75 mg tablet (Plavix) 75 mg PO QAM 03/25/21 05/16/21 History ferrous sulfate 325 mg (65 mg 325 mg PO TID 03/25/21 05/16/21 History iron) tablet (Feosol) losartan 50 mg tablet (Cozaar) 50 mg PO QAM 03/25/21 05/16/21 History idvzceyd-cjg-vvfbz acid 0.4 1 tab PO QAM 03/25/21 05/16/21 History mg-lycopene 300 mcg-lutein 250 mcg tablet (Centrum Silver) potassium chloride 10 mEq 10 meq PO QAM 03/25/21 05/16/21 History capsule,extended release tamsulosin 0.4 mg capsule (Flomax) 0.4 mg PO QAM 03/25/21 05/16/21 History bumetanide 1 mg tablet 1.5 mg PO QAM tab 04/07/21 05/16/21 History gabapentin 300 mg capsule 300 mg PO BID cap 04/07/21 05/16/21 History (Neurontin) levothyroxine 200 mcg capsule 200 mcg PO DAILYBB 04/07/21 05/16/21 History (Tirosint) warfarin 2.5 mg tablet (Jantoven) 2.5 mg PO HS tab 04/07/21 05/16/21 History enoxaparin 150 mg/mL subcutaneous 150 mg SUBCUT Q12H 05/11/21 05/16/21 History syringe (Lovenox) finasteride 5 mg tablet (Proscar) 5 mg PO QAM 05/11/21 05/16/21 History levothyroxine 50 mcg tablet 50 mcg PO DAILYBB 05/11/21 05/16/21 History (Synthroid) methocarbamol 500 mg tablet 500 mg PO DAILY PRN 05/11/21 05/16/21 History oxycodone-acetaminophen 5 mg-325 1 tab PO Q6H PRN 05/16/21 05/16/21 History mg tablet (Percocet) Patient History Medical History BPH (benign prostatic hyperplasia) CAD (coronary artery disease) Had cardiac cath- was told he had old KS with small vessel (2014) and medication management recommended per cardio records Did have repeat cardiac cath 2019 that showed no significant changes from 2014- medical management still recommended CHF (congestive heart failure) Ischemic CM per records EF ranging 30-45% since 2013 EF improved to 50-54% with 2020 ECHO Chronic deep vein thrombosis (DVT) Chronic kidney disease Stage 3 Diabetes mellitus, type II Dyslipidemia H/O deep venous thrombosis 2016 (complication from immobility from surgery)-- bilateral LE and takes warfarin Hypertension Per records Hypothyroidism JOSE on CPAP Per records 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 Tejeda 05-11-2021 H/O colonoscopy 2018 History of colostomy 2016 - due to ulcer History of colostomy reversal 2019 History of gastric surgery hx of vertical banded gastroplasty History of incisional hernia repair Incisional hernia repair with Ventrio mesh 15x25.7cm and Biologic integra 10x12.5cm as a layered mesh Ventrio first, then Integra. (2019) History of intravascular stent placement 2017 dvt IVC filter and then filter was removed Previous back surgery 2017 discectomy fusion one internal and then posterior fusion Family History Mother Clotting disorder Diabetes Hypertension Father Diabetes Hypertension Other Coronary heart disease Social History Smoking Status: Never smoker Second Hand Exposure: No; Hx Alcohol Use: Yes Alcohol type: hard liquor Hx Substance Use: No Preferred Language: Cymraes Communication Ability: Effective Assistant Professor Surgical Technology Required: No Beliefs That Will Affect Care: None marital status: Single Current Living Situation: Family current occupational status: disabled How many Children do You have: 0 Other Information That Helps Us Care for You: No Feels Safe at Home: Yes Safety Concerns: Feels Safe At This Time Sunscreen Use: No Assistive Devices: Oxygen - at Night and Walker Review of Systems Review of Systems: All systems reviewed & are unremarkable except as noted in HPI & below Physical Exam Constitutional: WD/WN, vitals as above Respiratory: normal respiratory effort, lungs clear to auscultation Cardiovascular: RRR, no murmur, no edema Gastrointestinal (Abdomen): Dressed and wrapped in clean dressings. Abd is soft but moderately distended. General pain to palpation. Results & Data ([facility]) Vital Signs (Past 12 Hours) Vital Signs Temp Pulse Pulse Resp BP BP Pulse Ox 05/18/21 13:25 37.1 C 75 18 124/73 94 05/18/21 12:55 37.0 C 79 16 126/72 96 05/18/21 12:42 36.4 C L 78 16 122/67 97 05/18/21 12:23 36.7 C 75 16 128/64 93 05/18/21 11:13 37.1 C 68 18 126/74 94 05/18/21 07:51 72 05/18/21 07:11 36.9 C 76 18 130/72 95 05/18/21 03:03 36.4 C L 80 20 120/70 90 Laboratory Results 05/18/21 05/18/21 05/18/21 Range/Units 12:39 06:06 05:54 WBC (4.8-10.8) K/uL RBC (4.7-6.1) M/uL Hgb (14.0-18.0) g/dL Hct (42-52) % MCV (80-100) fL MCH (25-34) pg MCHC (32-36) g/dL RDW Std Deviation (36.4-46.3) fL RDW Coeff of Jason (11.5-14.5) % Plt Count (130-400) K/uL MPV (7.4-10.4) fL Reticulocyte % (Auto) (0.5-2.0) % Reticulocyte # (0.02-0.10) 10^6/uL PT (9.0-12.0) Seconds INR (0.9-1.1) Sodium (136-145) mmol/L Potassium (3.5-5.1) mmol/L Chloride (98-107) mmol/L Carbon Dioxide (21-32) mmol/L Anion Gap (3-11) BUN (7-18) mg/dl Creatinine Cancelled (0.6-1.4) mg/dl Est Cr Clr Drug Dosing Cancelled ml/min Est GFR ( Amer) Cancelled ml/min Est GFR (Non-Af Amer) Cancelled ml/min BUN/Creatinine Ratio (10-20) Glucose (70-99) mg/dl POC Glucose 140 H 141 H (70-99) mg/dl Calcium (8.5-10.1) mg/dl Iron 12 L (35-175) mcg/dl TIBC 168 L (250-450) mcg/dl Transferrin 140 L (200-360) mg/dl Ferritin 183.5 (8-388) ng/ml Total Bilirubin (0.2-1) mg/dl AST (15-37) U/L ALT (12-78) U/L Alkaline Phosphatase (45-117) U/L Total Protein (6.4-8.2) gm/dl Albumin (3.4-5.0) gm/dl Globulin (2.5-4.0) gm/dl Albumin/Globulin Ratio (0.9-2) Blood Type Blood Type Recheck Antibody Screen Crossmatch 05/18/21 05/18/21 05/18/21 Range/Units 05:54 05:54 05:54 WBC (4.8-10.8) K/uL RBC (4.7-6.1) M/uL Hgb (14.0-18.0) g/dL Hct (42-52) % MCV (80-100) fL MCH (25-34) pg MCHC (32-36) g/dL RDW Std Deviation (36.4-46.3) fL RDW Coeff of Jason (11.5-14.5) % Plt Count (130-400) K/uL MPV (7.4-10.4) fL Reticulocyte % (Auto) 3.6 H (0.5-2.0) % Reticulocyte # 0.09 (0.02-0.10) 10^6/uL PT 25.7 H (9.0-12.0) Seconds INR 2.7 H (0.9-1.1) Sodium 138 (136-145) mmol/L Potassium 3.8 D (3.5-5.1) mmol/L Chloride 104 (98-107) mmol/L Carbon Dioxide 28 (21-32) mmol/L Anion Gap 6.0 (3-11) BUN 26 H (7-18) mg/dl Creatinine 1.13 (0.6-1.4) mg/dl Est Cr Clr Drug Dosing 125.7 ml/min Est GFR ( Amer) 82.0 ml/min Est GFR (Non-Af Amer) 70.8 ml/min BUN/Creatinine Ratio 22.6 H (10-20) Glucose 136 H (70-99) mg/dl POC Glucose (70-99) mg/dl Calcium 8.2 L (8.5-10.1) mg/dl Iron (35-175) mcg/dl TIBC (250-450) mcg/dl Transferrin (200-360) mg/dl Ferritin (8-388) ng/ml Total Bilirubin 0.5 (0.2-1) mg/dl AST 24 (15-37) U/L ALT 22 (12-78) U/L Alkaline Phosphatase 61 (45-117) U/L Total Protein 6.4 (6.4-8.2) gm/dl Albumin 2.2 L (3.4-5.0) gm/dl Globulin 4.2 H (2.5-4.0) gm/dl Albumin/Globulin Ratio 0.5 L (0.9-2) Blood Type Blood Type Recheck Antibody Screen Crossmatch 05/18/21 05/18/21 05/17/21 Range/Units 05:54 00:17 17:24 WBC 16.30 H (4.8-10.8) K/uL RBC 2.60 L (4.7-6.1) M/uL Hgb 7.4 L (14.0-18.0) g/dL Hct 23.5 L (42-52) % MCV 90.4 (80-100) fL MCH 28.5 (25-34) pg MCHC 31.5 L (32-36) g/dL RDW Std Deviation 60.9 H (36.4-46.3) fL RDW Coeff of Jason 18.6 H (11.5-14.5) % Plt Count 280 (130-400) K/uL MPV 9.8 (7.4-10.4) fL Reticulocyte % (Auto) (0.5-2.0) % Reticulocyte # (0.02-0.10) 10^6/uL PT (9.0-12.0) Seconds INR (0.9-1.1) Sodium (136-145) mmol/L Potassium (3.5-5.1) mmol/L Chloride (98-107) mmol/L Carbon Dioxide (21-32) mmol/L Anion Gap (3-11) BUN (7-18) mg/dl Creatinine (0.6-1.4) mg/dl Est Cr Clr Drug Dosing ml/min Est GFR ( Amer) ml/min Est GFR (Non-Af Amer) ml/min BUN/Creatinine Ratio (10-20) Glucose (70-99) mg/dl POC Glucose 156 H 127 H (70-99) mg/dl Calcium (8.5-10.1) mg/dl Iron (35-175) mcg/dl TIBC (250-450) mcg/dl Transferrin (200-360) mg/dl Ferritin (8-388) ng/ml Total Bilirubin (0.2-1) mg/dl AST (15-37) U/L ALT (12-78) U/L Alkaline Phosphatase (45-117) U/L Total Protein (6.4-8.2) gm/dl Albumin (3.4-5.0) gm/dl Globulin (2.5-4.0) gm/dl Albumin/Globulin Ratio (0.9-2) Blood Type Blood Type Recheck Antibody Screen Crossmatch 05/17/21 05/16/21 Range/Units 05:45 08:58 WBC (4.8-10.8) K/uL RBC (4.7-6.1) M/uL Hgb (14.0-18.0) g/dL Hct (42-52) % MCV (80-100) fL MCH (25-34) pg MCHC (32-36) g/dL RDW Std Deviation (36.4-46.3) fL RDW Coeff of Jason (11.5-14.5) % Plt Count (130-400) K/uL MPV (7.4-10.4) fL Reticulocyte % (Auto) (0.5-2.0) % Reticulocyte # (0.02-0.10) 10^6/uL PT (9.0-12.0) Seconds INR (0.9-1.1) Sodium (136-145) mmol/L Potassium (3.5-5.1) mmol/L Chloride (98-107) mmol/L Carbon Dioxide (21-32) mmol/L Anion Gap (3-11) BUN (7-18) mg/dl Creatinine (0.6-1.4) mg/dl Est Cr Clr Drug Dosing ml/min Est GFR ( Amer) ml/min Est GFR (Non-Af Amer) ml/min BUN/Creatinine Ratio (10-20) Glucose (70-99) mg/dl POC Glucose (70-99) mg/dl Calcium (8.5-10.1) mg/dl Iron (35-175) mcg/dl TIBC (250-450) mcg/dl Transferrin (200-360) mg/dl Ferritin (8-388) ng/ml Total Bilirubin (0.2-1) mg/dl AST (15-37) U/L ALT (12-78) U/L Alkaline Phosphatase (45-117) U/L Total Protein (6.4-8.2) gm/dl Albumin (3.4-5.0) gm/dl Globulin (2.5-4.0) gm/dl Albumin/Globulin Ratio (0.9-2) Blood Type A Positive Blood Type Recheck A Positive Antibody Screen NEGATIVE Crossmatch See Detail
[2021-05-18 16:00] LABS: Hematocrit (blood only) 24.7 % (42-52); Hemoglobin 7.8 g/dL (14.0-18.0)
[2021-05-18] MEDS ORDERED: ACETAMINOPHEN 1,000 MG/100 ML VIAL IV PRN (19:36)
[2021-05-18] MEDS: HYDROmorphone INJ 1 MG/ML SYRINGE IV PRN (19:40)
--- NOTE | 2021-05-18 19:49 | Hospitalist Progress Note ---
Date of Service May 18, 2021 Assessment & Plan (1) Small bowel obstruction due to postoperative adhesions: Plan: Repeat KUB 05/17/2021: No significant change pain managed with Dilaudid IV as needed and IV Ofirmev Clear liquid diet per general surgery, no p.o. meds at this time Continue NG tube with intermittent suctioning DC IV fluids today Discussed with Dr. Tejeda Patient infected abdominal wall mesh removal --On cefepime and Flagyl IV (2) Iron deficiency anemia: Plan: Hemoglobin decreased from 8.5 to 7.4 No signs of kaylan bleeding Possible GI bleed secondary to Coumadin? INR 2.7 Fecal occult blood test pending Protonix 40 mg twice daily IV Hold Coumadin After 1 unit of packed RBCs, hemoglobin still 7.8 Additional one unit of packed RBCs ordered, Lasix 20 mg IV ordered Repeat H&H at 9 PM GI consulted (3) CHF (congestive heart failure): Plan: - History of [place], ischemic cardiomyopathy - Hold Bumex and losartan in setting of AUGUST, n/v and Npo status for SBO as above - patient on the dry side -Given 2 units of packed RBC transfusion, IV antibiotics, will give Lasix 20 mg IV DC IV fluids for now (4) CAD (coronary artery disease): Plan: - Holding carvedilol, losartan, plavix, coumadin -Resume as soon as general surgery okay with p.o. meds (5) Dyslipidemia: Plan: - Cont statin once allowed po meds (6) JOSE on CPAP: Plan: - Cont Cpap HS (7) Hypothyroidism: Plan: -Holding p.o. levothyroxine -May need to convert to IV if p.o. meds still not allowed in 1 to 2 days (8) Morbid obesity: Plan: - bmi of 31.2, diet and exercise to be encouraged. - Ambulation encouraged with SBO (9) Acute kidney injury superimposed on CKD: Plan: - AUGUST with Cr. of 1.45, was 0.95 just 2 days ago, follow with am labs - Holding bumex, losartan, continue LR - crea 1.1 now (10) Chronic deep vein thrombosis (DVT): Plan: -INR 2.7 Coumadin held since admission, INR trending up Monitor closely May need heparin drip once INR is below 2 DVT PPx: -INR 2.7 Coumadin on hold (11) Prediabetes: Plan: A1c 6.3 CODE: Full code Dispo: From home plan of care discussed with patient in detail and at length all questions answered he is understanding, agreeable, comfortable with the plan of care Admission and Anticipated Discharge Date Admission Date: May 16, 2021 Subjective Follow-up for small bowel obstruction, etc. Seen resting in bed, comfortable, not in distress States he feels okay overall NG tube in place Denies active abdominal pain, nausea No chest pain, shortness of breath, palpitations, dizziness No fevers or chills Review of Systems Review of Systems: all noted and negative except for above Physical Exam Physical Exam: General- oriented x 3, not in distress, speaks in sentences with no effort or accessory muscle use Eyes- anicteric Neck- no JVD NG tube in place: Positive bilious fluid Lungs- clear breath sounds bilaterally, no crackles, no wheezing Heart- normal rate, regular rhythm; no murmurs Abdomen- normal bowel sounds, mildly distended, soft, nontender Dressing in place Extremities-mild pretibial edema, no calf tenderness Neuro- alert, oriented x 3; no gross focal neurologic deficits Skin- warm & dry Results & Data Results & Data ([facility]) Vital Signs (Past 12 Hours) Vital Signs Temp Pulse Pulse Resp BP BP Pulse Ox 05/18/21 18:49 37.4 C 77 16 151/80 H 95 05/18/21 17:49 37.3 C 72 16 148/82 H 91 05/18/21 17:19 37.4 C 74 16 151/73 H 91 05/18/21 17:04 76 16 136/78 91 05/18/21 16:47 37.3 C 73 16 132/76 91 05/18/21 14:30 37.1 C 74 18 131/79 95 05/18/21 13:25 37.1 C 75 18 124/73 94 05/18/21 12:55 37.0 C 79 16 126/72 96 05/18/21 12:42 36.4 C L 78 16 122/67 97 05/18/21 12:23 36.7 C 75 16 128/64 93 05/18/21 11:13 37.1 C 68 18 126/74 94 05/18/21 07:51 72 all noted and reviewed including below
[2021-05-18] MEDS ORDERED: FUROSEMIDE 20 MG in SYRINGE 0 ML IV ONE (20:00)
[2021-05-18 21:30] LABS: Hematocrit (blood only) 25.4 % (42-52); Hemoglobin 8.3 g/dL (14.0-18.0)
[2021-05-19] MEDS: HYDROmorphone INJ 1 MG/ML SYRINGE IV PRN ×4 (01:40→21:49)
[2021-05-19] MEDS: metroNIDAZOLE 500 MG/100 ML BAG IV SCH ×3 (03:01→18:22)
[2021-05-19] MEDS: CEFEPIME 2,000 MG in SYRINGE 7.5 ML IV SCH ×3 (06:03→21:38)
[2021-05-19 08:09] LABS: Hematocrit (blood only) 25.4 % (42-52); Hemoglobin 8.2 g/dL (14.0-18.0); Mean Corpuscular Hemoglobin 28.9 pg (25-34); Mean Corpuscular Hgb Conc 32.3 g/dL (32-36); Mean Corpuscular Volume 89.4 fL (80-100); Mean Platelet Volume 9.7 fL (7.4-10.4); Platelet Count 284 K/uL (130-400); RDW Coefficient of Variation 17.8 % (11.5-14.5); RDW Standard Deviation 57.4 fL (36.4-46.3); Red Blood Count 2.84 M/uL (4.7-6.1); White Blood Count 13.15 K/uL (4.8-10.8)
[2021-05-19 08:21] LABS: INR 2.4 (0.9-1.1); Prothrombin Time 22.7 Seconds (9.0-12.0)
[2021-05-19 08:40] LABS: Albumin Level 2.1 gm/dl (3.4-5.0); BUN Creatinine Ratio 22.1 (10-20); Calcium 8.1 mg/dl (8.5-10.1); Creatinine Clr Calc Pharmacy 144.5 ml/min; Est GFR (African American) 97.4 ml/min; Est GFR (Non-African American) 84.1 ml/min; Potassium 3.6 mmol/L (3.5-5.1)
[2021-05-19 08:42] LABS: Albumin Globulin Ratio 0.5 (0.9-2); Bilirubin,Total 0.6 mg/dl (0.2-1); Globulin 4.1 gm/dl (2.5-4.0); Total Protein 6.2 gm/dl (6.4-8.2)
--- NOTE | 2021-05-19 08:55 | Surgery Progress Note ---
Date of Service May 19, 2021 Assessment & Plan (1) SBO (small bowel obstruction): Plan: sbft today...if complete sbo will plan OR tomorrow to address vit K today for INR still 2.4 with anticipation of surgery tomorrow. hg improved after 1 unit PRBCs--multifactoral etiology. no evidence of active bleeding keep ngt and rosas Admission and Anticipated Discharge Date Admission Date: May 16, 2021 Subjective pt with no changes clinically. feeling ok. minimal pain. no bm yet. Physical Exam Physical Exam: alert. nad abd: soft. obese. LAINEY serous. minimal ttp. +bs's. Results & Data ([facility]) Vital Signs (Past 12 Hours) Vital Signs Temp Pulse Pulse Resp BP Pulse Ox 05/19/21 07:19 36.8 C 69 20 139/76 96 05/19/21 03:18 36.6 C 71 18 121/75 95 05/19/21 00:45 36.9 C 77 18 155/72 H 93 05/18/21 22:20 80 05/18/21 21:06 36.6 C 72 18 129/80 95 PG Care Time/CCT Total # of Minutes Spent Total Time Spent with Patient: Total time spent is greater than 50% in coordination of care (as documented) at patient's floor/unit and/or counseling patient: Coding Level of Care Code None Diagnoses SBO (small bowel obstruction) K56.609
[2021-05-19] MEDS: FINASTERIDE 5 MG TAB PO SCH (09:04)
[2021-05-19] MEDS ORDERED: PHYTONADIONE 10 MG in SODIUM CHLORIDE 0.9% 50 ML IV ONE (09:15)
[2021-05-19 09:50] LABS: Folate (Folic Acid) 14.7 ng/ml (>5.38)
--- NOTE | 2021-05-19 10:07 | Electrocardiogram Report ---
Test Reason : Blood Pressure : / mmHG Vent. Rate : 065 BPM Atrial Rate : 065 BPM P-R Int : 322 ms QRS Dur : 098 ms QT Int : 410 ms P-R-T Axes : 261 -44 074 degrees QTc Int : 426 ms Poor data quality, interpretation may be adversely affected Sinus rhythm Left axis deviation Minimal voltage criteria for LVH, may be normal variant Cannot rule out Anterior infarct , age undetermined Premature ventricular complexes Abnormal ECG No previous ECGs available Confirmed by Kenneth Villanueva ([id number]) on 05/19/2021 10:06:41 AM Referred By: REFERRED SELF Confirmed By:Kenneth Villanueva
[2021-05-19] MEDS: PANTOprazole 40 MG in SYRINGE 0 ML IV SCH ×2 (10:17→20:35)
--- NOTE | 2021-05-19 13:29 | Fluoroscopy Report ---
[place] SMALL BOWEL FOLLOW THROUGH UTILIZING OPTIRAY CLINICAL HISTORY: Small bowel obstruction. COMPARISON STUDY: CT of the abdomen and pelvis May 16, 2021. Abdominal series May 17, 2021. FLUOROSCOPY TIME: 0 seconds. Overhead images were obtained. FLUOROSCOPIC IMAGES: 0. TECHNIQUE: Electrical Tech KUB was obtained. Small bowel follow-through was then performed following instillati on of Optiray 300 via the nasogastric tube. FINDINGS: Electrical Tech images demonstrate skin nikita, surgical drain and aortoiliac endovascular stent gra ft. Note is made of persistent small bowel dilatation. Small bowel loops measure up to 8.4 cm in lloyd lebron. This is similar to abdominal series of May 17, 2021. This exam was technically compromised gi anne-marie suboptimal penetration and visualization of water soluble contrast. Numerous loops of opacified s mall bowel are noted. A discrete transition point was not identified. Oral contrast did reach the asc ending colon at 3 hours. Therefore, there is no complete small bowel obstruction. IMPRESSION: 1. Technically difficult study, as described above. Contrast reached the ascending colon by 3 hours. Therefore, no evidence for complete small bowel obstruction. 2. Significant small bowel dilatation, similar to abdominal series of May 17, 2021. This suggests a persistent partial small bowel obstruction. Discrete transition point not identified. ACT 112: Negative or not required by law. Electronically signed by: Pedro Sharpe M.D. 05/19/2021 1:28 PM
--- NOTE | 2021-05-19 18:47 | Hospitalist Progress Note ---
Date of Service May 19, 2021 Assessment & Plan (1) Small bowel obstruction due to postoperative adhesions: Plan: Small bowel obstruction due to postoperative ideations --CT ABD:Findings are consistent with a high-grade small bowel obstruction. A transition point is identified in the ventral left mid abdomen, and this is likely on the basis of adhesions. There is trace interloop fluid and mild infiltration around the transition point. No intraperitoneal free air is identified. There is no pneumatosis intestinalis or portal venous gas. Postoperative change is seen involving the stomach and the distal descending colon. Postoperative change is seen within the ventral wall of the lower abdomen and pelvis as detailed above with [address] Correlate with the operative history. No organized/drainable fluid collection is identified. Stents are again seen within the inferior vena cava and the iliac veins as above. Left- sided nephrolithiasis. Cardiomegaly. The distal esophagus is dilated and filled with fluid. Note that this may place the patient at risk for aspiration. --Small bowel follow-through: Technically difficult study, as described above. Contrast reached the ascending colon by 3 hours. Therefore, no evidence for complete small bowel obstruction. Significant small bowel dilatation, similar to abdominal series of May 17, 2021. This suggests a persistent partial small bowel obstruction. Discrete transition point not identified. 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 INR 2.7>2.4 Fecal occult blood test pending Continue Protonix 40 mg twice daily IV Hold Coumadin for now Appreciate GI input Outpatient EGD, colonoscopy Continue p.o. Protonix twice daily upon discharge for 1 month until EGD/Colonoscopy (3) CHF (congestive heart failure): Plan: H/O [place], ischemic cardiomyopathy -Held Bumex, losartan in setting of AUGUST Monitor volume status Resume diuretics as able Acute Kidney Injury on CKD III Cr: 1.4> 0.98 Monitor renal function Avoid nephrotoxic agents as able (4) CAD (coronary artery disease): Plan: - Resume carvedilol Hold losartan, plavix, coumadin for now (5) Dyslipidemia: Plan: - Resume statin as able (6) JOSE on CPAP: Plan: - Continue Cpap HS (7) Hypothyroidism: Plan: -Resume levothyroxine (8) Morbid obesity: Plan: - BMI 45.2 - Ambulation encouraged with SBO (9) Acute kidney injury superimposed on CKD: Plan: as above (10) Chronic deep vein thrombosis (DVT): Plan: INR 2.4 Resume Coumadin as able DVT Px: INR 2.4 Code Status Full Code (11) Prediabetes: Plan: A1c 6.3 CODE: Full code Dispo: From home plan of care discussed with patient in detail and at length all questions answered he is understanding, agreeable, comfortable with the plan of care Admission and Anticipated Discharge Date Admission Date: May 16, 2021 Subjective Patient is seen and examined at bedside Had small bowel follow-through this morning States having abdominal pain with movement + Flatus but no bowel movement Denies chest pain, shortness of breath, dizziness, nausea Review of Systems Review of Systems: All systems reviewed & are unremarkable except as noted in Subjective Physical Exam Physical Exam: Physical Exam: Vitals signs as noted above General Appearance:Morbidly Obese, no apparent distress Head: normocephalic, Atraumatic Eyes: normal inspection, EOMI Neck: supple, Trachea midline Respiratory/Chest: Normal breath sounds, CTA Cardiovascular: S1, S2, No murmur Abdomen/GI:Soft, + Abd binder, mild tender, distended, Decreased bowel sounds Extremities/Musculoskeletal:normal inspection, 1+ B/L LE edema Neurologic/Psych:AAOX3, grossly no focal neurological deficits Skin: normal color, warm Results & Data Results & Data ([facility]) Vital Signs (Past 12 Hours) Vital Signs Temp Pulse Pulse Resp BP Pulse Ox 05/19/21 15:19 70 05/19/21 15:02 36.8 C 69 16 153/72 H 95 05/19/21 11:29 36.7 C 73 20 129/76 94 05/19/21 08:00 64 05/19/21 07:19 36.8 C 69 20 139/76 96 Laboratory Results Short CBC 05/18/21 05/19/21 Range/Units 21:20 07:34 WBC 13.15 H (4.8-10.8) K/uL Hgb 8.3 L 8.2 L (14.0-18.0) g/dL Hct 25.4 L 25.4 L (42-52) % Plt Count 284 (130-400) K/uL BMP 05/19/21 07:34 Sodium 139 Potassium 3.6 Chloride 105 Carbon Dioxide 25 BUN 22 H Creatinine 0.98 Glucose 98 Calcium 8.1 L Liver Function 05/19/21 Range/Units 07:34 Total Bilirubin 0.6 (0.2-1) mg/dl AST 22 (15-37) U/L ALT 17 (12-78) U/L Alkaline Phosphatase 60 (45-117) U/L Albumin 2.1 L (3.4-5.0) gm/dl
[2021-05-19] MEDS ORDERED: carvediloL 25 MG TAB PO SCH (21:00)
[2021-05-20] MEDS: METOPROLOL TARTRATE 1 MG/ML VIAL IV SCH ×3 (00:26→11:51)
[2021-05-20] MEDS: metroNIDAZOLE 500 MG/100 ML BAG IV SCH ×3 (03:25→18:35)
[2021-05-20] MEDS: CEFEPIME 2,000 MG in SYRINGE 7.5 ML IV SCH ×3 (06:18→22:08)
[2021-05-20] MEDS: LEVOTHYROXINE SODIUM 50 MCG TABLET PO SCH (07:27)
[2021-05-20] MEDS: FINASTERIDE 5 MG TAB PO SCH (07:27)
[2021-05-20] MEDS: LEVOTHYROXINE SODIUM 200 MCG TABLET PO SCH (07:27)
--- NOTE | 2021-05-20 08:37 | Surgery Progress Note ---
Date of Service May 20, 2021 Assessment & Plan (1) SBO (small bowel obstruction): Plan: contrast from sbft reached colon. will perform clamping trial of ngt. if passes will remove ngt and start clears. Admission and Anticipated Discharge Date Admission Date: May 16, 2021 Subjective pt feeling ok. no complaints. passing large amounts of flatus overnight. Physical Exam Physical Exam: alert. nad. no pain. abd: incision c/d/I. no sign of infection. LAINEY serous. +bs's. Results & Data ([facility]) Vital Signs (Past 12 Hours) Vital Signs Temp Pulse Pulse Resp BP BP Pulse Ox 05/20/21 07:39 36.8 C 64 65 16 155/74 H 95 05/20/21 03:32 37.0 C 64 18 145/79 H 95 05/20/21 00:14 72 05/19/21 22:58 37.1 C 67 18 127/75 95 PG Care Time/CCT Total # of Minutes Spent Total Time Spent with Patient: Total time spent is greater than 50% in coordination of care (as documented) at patient's floor/unit and/or counseling patient: Coding Level of Care Code None Diagnoses SBO (small bowel obstruction) K56.609
[2021-05-20 09:00] LABS: Hematocrit (blood only) 26.4 % (42-52); Hemoglobin 8.2 g/dL (14.0-18.0); Mean Corpuscular Hemoglobin 28.2 pg (25-34); Mean Corpuscular Hgb Conc 31.1 g/dL (32-36); Mean Corpuscular Volume 90.7 fL (80-100); Mean Platelet Volume 9.4 fL (7.4-10.4); Platelet Count 324 K/uL (130-400); Red Blood Count 2.91 M/uL (4.7-6.1); White Blood Count 11.85 K/uL (4.8-10.8)
[2021-05-20 09:09] LABS: INR 1.2 (0.9-1.1); Prothrombin Time 12.1 Seconds (9.0-12.0)
[2021-05-20 09:28] LABS: BUN Creatinine Ratio 19.7 (10-20); Creatinine Clr Calc Pharmacy 150.5 ml/min; Est GFR (African American) 102.4 ml/min; Est GFR (Non-African American) 88.4 ml/min; Magnesium 2.3 mg/dl (1.8-2.4); Potassium 3.7 mmol/L (3.5-5.1)
--- NOTE | 2021-05-20 09:34 | XRay Report ---
XR chest 1V portable HISTORY: 60 years-old Male Hypoxia acute hypoxia COMPARISON: Chest radiograph 05/16/2021 TECHNIQUE: Portable AP view of the chest FINDINGS: Cardiac silhouette is enlarged. Linear bibasilar opacities. No pneumothorax, large pleural effusion o r overt pulmonary edema. A catheter projects over the right upper lung. Enteric tube courses below th e diaphragm outside the [id number]. Degenerative changes of the shoulders and spine. IMPRESSION: 1. Cardiomegaly without acute process. 2. Unchanged linear bibasilar opacities suggestive of atelectasis/scarring. ACT 112: Negative or not required by law. The above report was generated using voice recognition software. It may contain grammatical, syntax o r spelling errors. Electronically signed by: Reinaldo Glaser M.D. 05/20/2021 9:32 AM
[2021-05-20] MEDS: HYDROmorphone INJ 1 MG/ML SYRINGE IV PRN ×2 (09:42→20:41)
[2021-05-20] MEDS: PANTOprazole 40 MG in SYRINGE 0 ML IV SCH ×2 (09:42→20:40)
--- NOTE | 2021-05-20 10:58 | XRay Report ---
KUB HISTORY: Small bowel obstruction. COMPARISON: Abdomen and pelvis CT 05/16/2021. Small bowel follow-through 05/19/2021. FINDINGS: The contrast in the small bowel follow-through now resides within the colon. Dilated small bowel loops within the left side of the abdomen persist and maintain some of the oral contrast. The d istal ileal loops are decompressed. Therefore, these findings are consistent with a high-grade partia l small bowel obstruction. Vascular stents are noted within the IVC and iliac veins. There is a drain age tube seen within the left side the abdomen. IMPRESSION: Oral contrast has moved into the colon. There are multiple dilated loops of small bowel within the le ft side of the abdomen with decompressed distal loops of small bowel. Therefore, these findings are c onsistent with a high-grade partial small bowel obstruction. ACT 112: Negative or not required by law. Electronically signed by: Nilesh Chamberlain M.D. 05/20/2021 10:56 AM
[2021-05-20] MEDS: carvediloL 25 MG TAB PO SCH (17:13)
--- NOTE | 2021-05-20 18:39 | Hospitalist Progress Note ---
Date of Service May 20, 2021 Assessment & Plan (1) Small bowel obstruction due to postoperative adhesions: Plan: Small bowel obstruction due to postoperative ideations --CT ABD:Findings are consistent with a high-grade small bowel obstruction. A transition point is identified in the ventral left mid abdomen, and this is likely on the basis of adhesions. There is trace interloop fluid and mild infiltration around the transition point. No intraperitoneal free air is identified. There is no pneumatosis intestinalis or portal venous gas. Postoperative change is seen involving the stomach and the distal descending colon. Postoperative change is seen within the ventral wall of the lower abdomen and pelvis as detailed above with [address] Correlate with the operative history. No organized/drainable fluid collection is identified. Stents are again seen within the inferior vena cava and the iliac veins as above. Left- sided nephrolithiasis. Cardiomegaly. The distal esophagus is dilated and filled with fluid. Note that this may place the patient at risk for aspiration. --Small bowel follow-through: Technically difficult study, as described above. Contrast reached the ascending colon by 3 hours. Therefore, no evidence for complete small bowel obstruction. Significant small bowel dilatation, similar to abdominal series of May 17, 2021. This suggests a persistent partial small bowel obstruction. Discrete transition point not identified. 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 INR 2.7>2.4>1.2 Fecal occult blood test pending Received Vit K Continue Protonix 40 mg twice daily IV Resume Coumadin tmw if Hb stable Appreciate GI input Outpatient EGD, colonoscopy Continue p.o. Protonix twice daily upon discharge for 1 month until EGD/Colonoscopy (3) CHF (congestive heart failure): Plan: H/O [place], ischemic cardiomyopathy -Held Bumex, losartan in setting of AUGUST Monitor volume status Resume diuretics as able Acute Kidney Injury on CKD III Cr: 1.4> 0.94 Monitor renal function Avoid nephrotoxic agents as able (4) CAD (coronary artery disease): Plan: - Continue carvedilol, Losartan Resume Plavix, coumadin tmw (5) Dyslipidemia: Plan: - Resume statin (6) JOSE on CPAP: Plan: - Continue Cpap HS (7) Hypothyroidism: Plan: -Continue levothyroxine (8) Morbid obesity: Plan: - BMI 45.2 - Ambulation encouraged with SBO (9) Acute kidney injury superimposed on CKD: Plan: as above (10) Chronic deep vein thrombosis (DVT): Plan: INR 2.4>1.2 Lovenox SQ resumed Resume Coumadin tomorrow DVT Px: Lovenox SQ Code Status Full Code (11) Prediabetes: Plan: A1c 6.3 CODE: Full code Dispo: From home plan of care discussed with patient in detail and at length all questions answered he is understanding, agreeable, comfortable with the plan of care Admission and Anticipated Discharge Date Admission Date: May 16, 2021 Subjective Patient is seen and examined at bedside States feeling well NG tube clamped today No new complaints KUB suggestive of partial small bowel obstruction + Flatus but no bowel movement Denies chest pain, shortness of breath, dizziness, nausea, abdominal pain Review of Systems Review of Systems: All systems reviewed & are unremarkable except as noted in Subjective Physical Exam Physical Exam: Physical Exam: Vitals signs as noted above General Appearance:Morbidly Obese, no apparent distress Head: normocephalic, Atraumatic Eyes: normal inspection, EOMI Neck: supple, Trachea midline Respiratory/Chest: Normal breath sounds, CTA Cardiovascular: S1, S2, No murmur Abdomen/GI:Soft, + Abd binder, non tender, distended, Decreased bowel sounds Extremities/Musculoskeletal:normal inspection, 1+ B/L LE edema Neurologic/Psych:AAOX3, grossly no focal neurological deficits Skin: normal color, warm Results & Data Results & Data ([facility]) Vital Signs (Past 12 Hours) Vital Signs Temp Pulse Pulse Resp BP BP Pulse Ox 05/20/21 15:34 69 05/20/21 15:25 37.3 C 68 20 148/79 H 93 05/20/21 12:21 36.8 C 65 20 120/69 97 05/20/21 11:51 66 136/84 05/20/21 07:39 36.8 C 64 65 16 155/74 H 95 Laboratory Results Short CBC 05/20/21 Range/Units 08:37 WBC 11.85 H (4.8-10.8) K/uL Hgb 8.2 L (14.0-18.0) g/dL Hct 26.4 L (42-52) % Plt Count 324 (130-400) K/uL BMP 05/20/21 08:37 Sodium 139 Potassium 3.7 Chloride 107 Carbon Dioxide 25 BUN 19 H Creatinine 0.94 Glucose 96 Calcium 8.0 L
[2021-05-20] MEDS: ENOXAPARIN 150 MG/ML SYR SQ SCH (20:40)
[2021-05-20] MEDS ORDERED: carvediloL 25 MG TAB PO SCH (21:00)
[2021-05-20] MEDS ORDERED: HEPARIN SOD 5,000 UNIT/0.5 ML VIAL SQ SCH (21:00)
[2021-05-21] MEDS: HYDROmorphone INJ 1 MG/ML SYRINGE IV PRN ×3 (03:20→21:02)
[2021-05-21] MEDS: metroNIDAZOLE 500 MG/100 ML BAG IV SCH ×3 (03:21→19:52)
[2021-05-21] MEDS: LEVOTHYROXINE SODIUM 50 MCG TABLET PO SCH (05:43)
[2021-05-21] MEDS: LEVOTHYROXINE SODIUM 200 MCG TABLET PO SCH (05:43)
[2021-05-21] MEDS: CEFEPIME 2,000 MG in SYRINGE 7.5 ML IV SCH ×3 (05:44→22:25)
[2021-05-21 07:27] LABS: Hematocrit (blood only) 25.2 % (42-52); Hemoglobin 7.9 g/dL (14.0-18.0); Mean Corpuscular Hemoglobin 28.5 pg (25-34); Mean Corpuscular Hgb Conc 31.3 g/dL (32-36); Mean Platelet Volume 9.4 fL (7.4-10.4); Platelet Count 324 K/uL (130-400); RDW Coefficient of Variation 17.6 % (11.5-14.5); RDW Standard Deviation 58.4 fL (36.4-46.3); Red Blood Count 2.77 M/uL (4.7-6.1); White Blood Count 10.09 K/uL (4.8-10.8)
[2021-05-21 07:35] LABS: INR 1.2 (0.9-1.1); Prothrombin Time 11.6 Seconds (9.0-12.0)
[2021-05-21] MEDS: ATORVASTATIN 40 MG TAB PO SCH (08:12)
[2021-05-21] MEDS: carvediloL 25 MG TAB PO SCH ×2 (08:12→18:08)
[2021-05-21] MEDS: LOSARTAN POTASSIUM 50 MG TAB PO SCH (08:12)
[2021-05-21] MEDS: ENOXAPARIN 150 MG/ML SYR SQ SCH ×2 (08:13→21:01)
[2021-05-21] MEDS: FINASTERIDE 5 MG TAB PO SCH (08:13)
[2021-05-21] MEDS: PANTOprazole 40 MG in SYRINGE 0 ML IV SCH ×2 (08:14→21:01)
[2021-05-21 08:19] LABS: BUN Creatinine Ratio 18.5 (10-20); Calcium 7.9 mg/dl (8.5-10.1); Creatinine Clr Calc Pharmacy 154.2 ml/min; Est GFR (African American) 105.1 ml/min; Est GFR (Non-African American) 90.7 ml/min; Potassium 3.7 mmol/L (3.5-5.1)
--- NOTE | 2021-05-21 08:59 | Surgery Progress Note ---
Date of Service May 21, 2021 Assessment & Plan (1) SBO (small bowel obstruction): Plan: clinically doing ok. certainly not out of the smith yet will advance to full liquids. hopefully he will have a bm soon (2) H/O abdominal surgery: Admission and Anticipated Discharge Date Admission Date: May 16, 2021 Subjective pt seen. feeling good. no pain or nausea. sheila clears. lots of flatus. still no bm. Physical Exam Physical Exam: alert. nad abd: soft. nt. LAINEY serous. Results & Data ([facility]) Vital Signs (Past 12 Hours) Vital Signs Temp Pulse Pulse Resp BP BP Pulse Ox 05/21/21 08:07 36.9 C 67 18 159/87 H 94 05/21/21 04:45 37.0 C 67 19 117/67 94 05/21/21 03:47 72 05/20/21 22:58 37 C 71 18 116/71 92 PG Care Time/CCT Total # of Minutes Spent Total Time Spent with Patient: Total time spent is greater than 50% in coordination of care (as documented) at patient's floor/unit and/or counseling patient: Coding Level of Care Code None Diagnoses SBO (small bowel obstruction) K56.609 H/O abdominal surgery Z98.890
[2021-05-21] MEDS ORDERED: WARFARIN SOD 2.5 MG TAB PO SCH (16:00)
--- NOTE | 2021-05-21 16:21 | Hospitalist Progress Note ---
Date of Service May 21, 2021 Assessment & Plan (1) Small bowel obstruction due to postoperative adhesions: Plan: Small bowel obstruction due to postoperative ideations --CT ABD:Findings are consistent with a high-grade small bowel obstruction. A transition point is identified in the ventral left mid abdomen, and this is likely on the basis of adhesions. There is trace interloop fluid and mild infiltration around the transition point. No intraperitoneal free air is identified. There is no pneumatosis intestinalis or portal venous gas. Postoperative change is seen involving the stomach and the distal descending colon. Postoperative change is seen within the ventral wall of the lower abdomen and pelvis as detailed above with [address] Correlate with the operative history. No organized/drainable fluid collection is identified. Stents are again seen within the inferior vena cava and the iliac veins as above. Left- sided nephrolithiasis. Cardiomegaly. The distal esophagus is dilated and filled with fluid. Note that this may place the patient at risk for aspiration. --Small bowel follow-through: Technically difficult study, as described above. Contrast reached the ascending colon by 3 hours. Therefore, no evidence for complete small bowel obstruction. Significant small bowel dilatation, similar to abdominal series of May 17, 2021. This suggests a persistent partial small bowel obstruction. Discrete transition point not identified. 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 INR 2.7>2.4>1.2 Fecal occult blood test pending Received Vit K Continue Protonix 40 mg twice daily IV Resume Coumadin tmw if Hb stable Appreciate GI input Outpatient EGD, colonoscopy Continue p.o. Protonix twice daily upon discharge for 1 month until EGD/Colonoscopy (3) CHF (congestive heart failure): Plan: H/O [place], ischemic cardiomyopathy -Held Bumex, losartan in setting of AUGUST Monitor volume status Resume diuretics as able Acute Kidney Injury on CKD III Cr: 1.4> 0.92 Monitor renal function Avoid nephrotoxic agents as able (4) CAD (coronary artery disease): Plan: - Continue carvedilol, Losartan Resume Plavix tomorrow Resume coumadin today (5) Dyslipidemia: Plan: -On statin (6) JOSE on CPAP: Plan: - Continue Cpap HS (7) Hypothyroidism: Plan: -Continue levothyroxine (8) Morbid obesity: Plan: - BMI 45.2 - Ambulation encouraged with SBO (9) Acute kidney injury superimposed on CKD: Plan: as above (10) Chronic deep vein thrombosis (DVT): Plan: INR 2.4>1.2 Continue Lovenox SQ till INR therapeutic Resumed Coumadin DVT Px: Lovenox SQ Coumadin Code Status Full Code (11) Prediabetes: Plan: A1c 6.3 CODE: Full code Dispo: From home plan of care discussed with patient in detail and at length all questions answered he is understanding, agreeable, comfortable with the plan of care Admission and Anticipated Discharge Date Admission Date: May 16, 2021 Subjective Patient is seen and examined at bedside No new complaints + Flatus but no bowel movement yet Tolerating liquid diet Denies chest pain, shortness of breath, dizziness, nausea, abdominal pain Review of Systems Review of Systems: All systems reviewed & are unremarkable except as noted in Subjective Physical Exam Physical Exam: Physical Exam: Vitals signs as noted above General Appearance:Morbidly Obese, no apparent distress Head: normocephalic, Atraumatic Eyes: normal inspection, EOMI Neck: supple, Trachea midline Respiratory/Chest: Normal breath sounds, CTA Cardiovascular: S1, S2, No murmur Abdomen/GI:Soft, + Abd binder, non tender, distended, Decreased bowel sounds Extremities/Musculoskeletal:normal inspection, 1+ B/L LE edema Neurologic/Psych:AAOX3, grossly no focal neurological deficits Skin: normal color, warm Results & Data Results & Data ([facility]) Vital Signs (Past 12 Hours) Vital Signs Temp Pulse Pulse Resp BP BP Pulse Ox 05/21/21 14:53 36.6 C 68 18 135/78 96 05/21/21 11:50 37.1 C 64 18 151/81 H 94 05/21/21 08:07 36.9 C 67 18 159/87 H 94 05/21/21 07:00 65 05/21/21 04:45 37.0 C 67 19 117/67 94 Laboratory Results Short CBC 05/21/21 Range/Units 06:33 WBC 10.09 (4.8-10.8) K/uL Hgb 7.9 L (14.0-18.0) g/dL Hct 25.2 L (42-52) % Plt Count 324 (130-400) K/uL BMP 05/21/21 06:33 Sodium 138 Potassium 3.7 Chloride 107 Carbon Dioxide 26 BUN 17 Creatinine 0.92 Glucose 90 Calcium 7.9 L
[2021-05-22] MEDS: metroNIDAZOLE 500 MG/100 ML BAG IV SCH ×3 (03:04→19:14)
--- NOTE | 2021-05-22 06:32 | Surgery Progress Note ---
Date of Service May 22, 2021 Assessment & Plan (1) SBO (small bowel obstruction): Plan: Patient is status post exploration of infected abdominal wall with removal of mesh, component separation, and abdominal wall reconstruction on 05/11/[address] Tejeda. He has been readmitted with small bowel obstruction He was treated with conservative measures We will continue patient on full liquids as he does not have much in the way of appetite and will consider advancing his diet further when his appetite improves and his bowel function has improved further Continue analgesics Continue antiemetics Mobilize as able as above. frustrated with progress. no pain or nausea with fulls. states he needs glycerine supp at home to help with bms...will add those to his regiment. will try low fiber diet. will also d/c his rosas so he can ambulate easier. Admission and Anticipated Discharge Date Admission Date: May 16, 2021 Subjective Patient is resting in bed. He denies any significant abdominal pain. He notes that he is tolerating a full liquid diet but does not really feel very hungry. He has not had a bowel movement since his NG tube is been removed. He does note however, that he is passing considerable amount of flatus. He denies any nausea or vomiting at the present time. Physical Exam Gastrointestinal (Abdomen): Patient's abdomen is soft but has slight distention. Bowel sounds are hypoactive. There is minimal pain noted with palpation. A LAINEY drain is in place has drained approximately 5 cc of serous fluid over the past 24 hours and only 3 cc last shift. Results & Data ([facility]) Vital Signs (Past 12 Hours) Vital Signs Temp Pulse Pulse Resp BP Pulse Ox 05/22/21 03:04 37.1 C 65 16 125/78 93 05/22/21 00:43 64 05/22/21 00:00 37 C 67 18 169/80 H 93 05/21/21 19:31 36.7 C 67 20 135/80 95 PG Care Time/CCT Total # of Minutes Spent Total Time Spent with Patient: Total time spent is greater than 50% in coordination of care (as documented) at patient's floor/unit and/or counseling patient: Coding Level of Care Code None Diagnoses SBO (small bowel obstruction) K56.609
[2021-05-22] MEDS: LEVOTHYROXINE SODIUM 50 MCG TABLET PO SCH (06:36)
[2021-05-22] MEDS: CEFEPIME 2,000 MG in SYRINGE 7.5 ML IV SCH ×3 (06:36→22:12)
[2021-05-22] MEDS: LEVOTHYROXINE SODIUM 200 MCG TABLET PO SCH (06:36)
[2021-05-22 07:02] LABS: Hematocrit (blood only) 25.5 % (42-52)
[2021-05-22 07:22] LABS: INR 1.2 (0.9-1.1); Prothrombin Time 11.7 Seconds (9.0-12.0)
[2021-05-22] MEDS: carvediloL 25 MG TAB PO SCH ×2 (08:11→16:38)
[2021-05-22] MEDS: LOSARTAN POTASSIUM 50 MG TAB PO SCH (08:11)
[2021-05-22] MEDS: CLOPIDOGREL BISULFATE 75 MG TAB PO SCH (08:12)
[2021-05-22] MEDS: ATORVASTATIN 40 MG TAB PO SCH (08:12)
[2021-05-22] MEDS: PANTOprazole 40 MG in SYRINGE 0 ML IV SCH ×2 (08:12→20:30)
[2021-05-22] MEDS: FINASTERIDE 5 MG TAB PO SCH (08:12)
[2021-05-22] MEDS: ENOXAPARIN 150 MG/ML SYR SQ SCH ×2 (08:13→20:29)
[2021-05-22] MEDS: HYDROmorphone INJ 1 MG/ML SYRINGE IV PRN (09:30)
[2021-05-22] MEDS ORDERED: ACETAMINOPHEN 1000 MG/100 ML IV IV PRN (10:09)
[2021-05-22] MEDS ORDERED: HYDROmorphone INJ 1 MG/ML SYRINGE IV PRN (10:10)
[2021-05-22] MEDS ORDERED: GLYCERIN ADULT 12 SUPP/BOX SUPP PR PRN (10:24)
--- NOTE | 2021-05-22 13:08 | Hospitalist Progress Note ---
Date of Service May 22, 2021 Assessment & Plan (1) Small bowel obstruction due to postoperative adhesions: Plan: Small bowel obstruction due to postoperative ideations --CT ABD:Findings are consistent with a high-grade small bowel obstruction. A transition point is identified in the ventral left mid abdomen, and this is likely on the basis of adhesions. There is trace interloop fluid and mild infiltration around the transition point. No intraperitoneal free air is identified. There is no pneumatosis intestinalis or portal venous gas. Postoperative change is seen involving the stomach and the distal descending colon. Postoperative change is seen within the ventral wall of the lower abdomen and pelvis as detailed above with [address] Correlate with the operative history. No organized/drainable fluid collection is identified. Stents are again seen within the inferior vena cava and the iliac veins as above. Left- sided nephrolithiasis. Cardiomegaly. The distal esophagus is dilated and filled with fluid. Note that this may place the patient at risk for aspiration. --Small bowel follow-through: Technically difficult study, as described above. Contrast reached the ascending colon by 3 hours. Therefore, no evidence for complete small bowel obstruction. Significant small bowel dilatation, similar to abdominal series of May 17, 2021. This suggests a persistent partial small bowel obstruction. Discrete transition point not identified. 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 Fecal occult blood test pending Received Vit K Continue Protonix 40 mg twice daily IV while hospitalized Appreciate GI input Outpatient EGD, colonoscopy Continue p.o. Protonix twice daily upon discharge for 1 month until EGD/Colonoscopy Hb stable (3) CHF (congestive heart failure): Plan: H/O [place], ischemic cardiomyopathy -Held Bumex, losartan in setting of AUGUST Monitor volume status Resume diuretics as able Acute Kidney Injury on CKD III Cr: 1.4> 0.92 Monitor renal function Avoid nephrotoxic agents as able (4) CAD (coronary artery disease): Plan: -Continue plavix, Carvedilol, Losartan (5) Dyslipidemia: Plan: -On statin (6) JOSE on CPAP: Plan: - Continue Cpap HS (7) Hypothyroidism: Plan: -Continue levothyroxine (8) Morbid obesity: Plan: - BMI 45.2 - Ambulation encouraged with SBO (9) Acute kidney injury superimposed on CKD: Plan: as above (10) Chronic deep vein thrombosis (DVT): Plan: INR 2.4>1.2 Continue Lovenox SQ till INR therapeutic Continue Coumadin -Adjust dose as needed (11) Prediabetes: Plan: A1c 6.3 DVT Px: Lovenox SQ Coumadin Code Status Full Code Admission and Anticipated Discharge Date Admission Date: May 16, 2021 Subjective Patient is seen and examined at bedside Expresses concern regarding very slow progression Abdominal pain is intermittent Tolerates liquid diet +flatus Denies chest pain, shortness of breath, dizziness, nausea Review of Systems Review of Systems: All systems reviewed & are unremarkable except as noted in Subjective Physical Exam Physical Exam: Physical Exam: Vitals signs as noted above General Appearance:Morbidly Obese, no apparent distress Head: normocephalic, Atraumatic Eyes: normal inspection, EOMI Neck: supple, Trachea midline Respiratory/Chest: Normal breath sounds, CTA Cardiovascular: S1, S2, No murmur Abdomen/GI:Soft, + Abd binder, non tender, distended, Decreased bowel sounds Extremities/Musculoskeletal:normal inspection, 1+ B/L LE edema Neurologic/Psych:AAOX3, grossly no focal neurological deficits Skin: normal color, warm Results & Data Results & Data ([facility]) Vital Signs (Past 12 Hours) Vital Signs Temp Pulse Resp BP Pulse Ox 05/22/21 12:00 37.3 C 72 20 125/75 94 05/22/21 03:04 37.1 C 65 16 125/78 93 Laboratory Results Short CBC 05/22/21 Range/Units 06:39 Hgb 8.0 L (14.0-18.0) g/dL Hct 25.5 L (42-52) %
[2021-05-22] MEDS ORDERED: ACETAMINOPHEN 325 MG TAB PO PRN (14:03)
[2021-05-22] MEDS ORDERED: ACETAMINOPHEN 500 MG TAB PO PRN (14:06)
[2021-05-22] MEDS ORDERED: WARFARIN SOD 5 MG TAB PO SCH (16:00)
[2021-05-22] MEDS ORDERED: COUGH DROP (SUGAR FREE) LOZ 24 LOZ/1 BOX BUCCAL PRN (23:57)
[2021-05-23] MEDS: metroNIDAZOLE 500 MG/100 ML BAG IV SCH ×2 (03:12→10:26)
[2021-05-23] MEDS: CEFEPIME 2,000 MG in SYRINGE 7.5 ML IV SCH (06:32)
[2021-05-23] MEDS: LEVOTHYROXINE SODIUM 50 MCG TABLET PO SCH (06:32)
[2021-05-23] MEDS: LEVOTHYROXINE SODIUM 200 MCG TABLET PO SCH (06:32)
--- NOTE | 2021-05-23 06:50 | Surgery Progress Note ---
Date of Service May 23, 2021 Assessment & Plan (1) SBO (small bowel obstruction): Plan: Patient is status post exploration of infected abdominal wall with removal of mesh, component separation, and abdominal wall reconstruction on 05/11/[address] Tejeda. He required readmission secondary to small bowel obstruction He was treated successfully with conservative measures. -He is currently tolerating solid food Continue analgesics Continue antiemetics Continue to mobilize as able as above. would like to go home. sheila diet. no n/v or pain. ok for d/c. follow up one week for drain/staple removal. Admission and Anticipated Discharge Date Admission Date: May 16, 2021 Subjective Patient is resting in bed. He denies any issues overnight. In addition passing flatus he says that his bowels are now moving. He denies any nausea or vomiting is tolerated solid food. Physical Exam Gastrointestinal (Abdomen): Slight distention noted of abdomen with positive bowel sounds. There is minimal pain with palpation. Results & Data ([facility] [place]) Vital Signs (Past 12 Hours) Vital Signs Temp Pulse Pulse Resp BP BP Pulse Ox 05/23/21 02:34 36.9 C 66 18 129/81 94 05/23/21 00:05 73 05/22/21 22:44 36.7 C 71 20 110/75 95 05/22/21 19:41 36.8 C 76 20 125/79 95 PG Care Time/CCT Total # of Minutes Spent Total Time Spent with Patient: Total time spent is greater than 50% in coordination of care (as documented) at patient's floor/unit and/or counseling patient: Coding Level of Care Code None Diagnoses SBO (small bowel obstruction) K56.609
[2021-05-23 07:45] LABS: Hematocrit (blood only) 26.1 % (42-52); Hemoglobin 8.2 g/dL (14.0-18.0); Mean Corpuscular Hemoglobin 28.6 pg (25-34); Mean Corpuscular Hgb Conc 31.4 g/dL (32-36); Mean Corpuscular Volume 90.9 fL (80-100); Mean Platelet Volume 9.9 fL (7.4-10.4); Platelet Count 383 K/uL (130-400); RDW Coefficient of Variation 17.7 % (11.5-14.5); RDW Standard Deviation 58.6 fL (36.4-46.3); Red Blood Count 2.87 M/uL (4.7-6.1); White Blood Count 11.83 K/uL (4.8-10.8)
[2021-05-23 07:48] LABS: INR 1.2 (0.9-1.1)
[2021-05-23 08:17] LABS: BUN Creatinine Ratio 13.2 (10-20); Creatinine Clr Calc Pharmacy 151.1 ml/min; Est GFR (African American) 103.8 ml/min; Est GFR (Non-African American) 89.5 ml/min; Potassium 3.8 mmol/L (3.5-5.1)
[2021-05-23] MEDS: ATORVASTATIN 40 MG TAB PO SCH (08:42)
[2021-05-23] MEDS: LOSARTAN POTASSIUM 50 MG TAB PO SCH (08:42)
[2021-05-23] MEDS: CLOPIDOGREL BISULFATE 75 MG TAB PO SCH (08:42)
[2021-05-23] MEDS: FINASTERIDE 5 MG TAB PO SCH (08:42)
[2021-05-23] MEDS: ENOXAPARIN 150 MG/ML SYR SQ SCH (08:42)
[2021-05-23] MEDS: carvediloL 25 MG TAB PO SCH (08:43)
[2021-05-23] MEDS: PANTOprazole 40 MG in SYRINGE 0 ML IV SCH (08:43)
--- NOTE | 2021-05-23 12:14 | Hospitalist Progress Note ---
Date of Service May 23, 2021 Assessment & Plan (1) Small bowel obstruction due to postoperative adhesions: Plan: Small bowel obstruction due to postoperative ideations --CT ABD:Findings are consistent with a high-grade small bowel obstruction. A transition point is identified in the ventral left mid abdomen, and this is likely on the basis of adhesions. There is trace interloop fluid and mild infiltration around the transition point. No intraperitoneal free air is identified. There is no pneumatosis intestinalis or portal venous gas. Postoperative change is seen involving the stomach and the distal descending colon. Postoperative change is seen within the ventral wall of the lower abdomen and pelvis as detailed above with [address] Correlate with the operative history. No organized/drainable fluid collection is identified. Stents are again seen within the inferior vena cava and the iliac veins as above. Left- sided nephrolithiasis. Cardiomegaly. The distal esophagus is dilated and filled with fluid. Note that this may place the patient at risk for aspiration. --Small bowel follow-through: Technically difficult study, as described above. Contrast reached the ascending colon by 3 hours. Therefore, no evidence for complete small bowel obstruction. Significant small bowel dilatation, similar to abdominal series of May 17, 2021. This suggests a persistent partial small bowel obstruction. Discrete transition point not identified. 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 Fecal occult blood test pending Received Vit K Continue Protonix 40 mg twice daily IV while hospitalized Appreciate GI input Outpatient EGD, colonoscopy Continue p.o. Protonix twice daily upon discharge for 1 month until EGD/Colonoscopy Hb stable (3) CHF (congestive heart failure): Plan: H/O [place], ischemic cardiomyopathy -Held Bumex, losartan in setting of AUGUST Monitor volume status Resume diuretics as able Acute Kidney Injury on CKD III Cr: 1.4> 0.93 Monitor renal function Avoid nephrotoxic agents as able (4) CAD (coronary artery disease): Plan: -Continue plavix, Carvedilol, Losartan (5) Dyslipidemia: Plan: -On statin (6) JOSE on CPAP: Plan: - Continue Cpap HS (7) Hypothyroidism: Plan: -Continue levothyroxine (8) Morbid obesity: Plan: - BMI 45.2 - Ambulation encouraged with SBO (9) Acute kidney injury superimposed on CKD: Plan: as above (10) Chronic deep vein thrombosis (DVT): Plan: INR 2.4>1.2 Continue Lovenox SQ till INR therapeutic Continue Coumadin -Adjust dose as needed (11) Prediabetes: Plan: A1c 6.3 DVT Px: Lovenox SQ Coumadin Code Status Full Code Admission and Anticipated Discharge Date Admission Date: May 16, 2021 Subjective Patient is seen and examined at bedside States feeling well today Had 1 BM yesterday Tolerates regular diet Discussed with surgery today Denies nausea, vomiting, abd pain, chest pain, shortness of breath, dizziness Review of Systems Review of Systems: All systems reviewed & are unremarkable except as noted in Subjective Physical Exam Physical Exam: Physical Exam: Vitals signs as noted above General Appearance:Morbidly Obese, no apparent distress Head: normocephalic, Atraumatic Eyes: normal inspection, EOMI Neck: supple, Trachea midline Respiratory/Chest: Normal breath sounds, CTA Cardiovascular: S1, S2, No murmur Abdomen/GI:Soft, + Abd binder, non tender, bowel sounds present Extremities/Musculoskeletal:normal inspection, 1+ B/L LE edema Neurologic/Psych:AAOX3, grossly no focal neurological deficits Skin: normal color, warm Results & Data Results & Data ([facility]) Vital Signs (Past 12 Hours) Vital Signs Temp Pulse Resp BP Pulse Ox 05/23/21 11:06 36.9 C 69 20 108/68 94 05/23/21 08:09 37.2 C 66 20 133/79 94 05/23/21 02:34 36.9 C 66 18 129/81 94 Laboratory Results Short CBC 05/23/21 Range/Units 06:54 WBC 11.83 H (4.8-10.8) K/uL Hgb 8.2 L (14.0-18.0) g/dL Hct 26.1 L (42-52) % Plt Count 383 (130-400) K/uL BMP 05/23/21 06:54 Sodium 137 Potassium 3.8 Chloride 107 Carbon Dioxide 23 BUN 12 Creatinine 0.93 Glucose 101 H Calcium 8.0 L
--- NOTE | 2021-05-23 12:29 | Discharge Summary ---
Date of Service May 23, 2021 Admission HPI Per Admitting Provider This is a 60yo M with a PMH of CAD, history of [place], ischemic cardiomyopathy, hypothyroidism, hypertension, CKD 3, BPH, recently diagnosed type 2 diabetes and diet-controlled, JOSE on CPAP, chronic bilateral lower extremity DVTs on Coumadin and other medical problems as below who is POD#5 s/p infected abdominal wall exploration with explant of old mesh, component separation, abdominal wall reconstruction with biological mesh by Dr. Tejeda on 05/11/21. Pt represents to the ER with intractable nausea and vomiting times the past 2 days since being home. He has been only tolerating clear liquid since Monday but felt well on discharge last Monday. After being home, he noticed increased abdominal bloating, distension and nausea. Two LAINEY drains in place and reports that he emptied the one on his right with 20 mL out and one on left with 50 mL out prior to getting here in the ER. Since then there has been nearly no drainage out of both. He reports no formed bowel movement since prior to surgery. He denies fever, chills or sweats, no shortness of breath or chest pain. His brother, Guru is present at bedside. Today found to have high-grade small bowel obstruction on CT of the abdomen. Admission Exam Per Admitting Provider Physical Exam: General: awake, alert, no apparent distress, + morbidly obese, BMI 31.2 Head: Normocephalic, atraumatic ENT: PERRL, EOMI, no pharyngeal exudate, mucous membranes moist, + NGT in place draining dark bilous/brown liquid Chest: Clear to auscultation, on room air, no adventitious breath sounds Cardiac: Regular rate and rhythm, no murmur, no JVD, normal peripheral pulses, good capillary refill Abdominal: Vertical incision with nikita intact, no surrounding erythema, drainage or concern for infection, dressing is bloody and removed by general surgery at bedside, moderate hematoma visible over left upper quadrant with some edema, [address]; LLQ and RLQ. Bowel sounds present x 4 quadrants, no high-pitched tinkling, + distended, + tender to palpation near incision site, no rebound or guarding Extremities: Normal inspection, +1+ pitting peripheral edema of BLE, no shin thema, calfs nontender to palpation Psych: Normal mood and affect Neuro: AAO x 3, strength intact bilaterally and rated 5/5, no motor deficits, speech is clear, no peripheral sensory deficits Principal Diagnosis Small Bowel Obstruction Acute Kidney Injury -Resolved Discharge Data Allergies Allergy/AdvReac Type Severity Reaction Status Date / Time piperacillin [From Zosyn] Allergy Mild fever and Verified 05/16/21 08:53 chills tazobactam [From Zosyn] Allergy Mild fever and Verified 05/16/21 08:53 chills Consultations 05/16/21 11:59 ED Decision to Admit Stat 05/16/21 14:16 Consult General Surgery Routine 05/18/21 11:59 Consult Gastroenterology Routine Ordered Studies 05/16/21 09:59 CT abd pelvis IV con only Stat 05/19/21 07:00 FL small bowel follow through Routine Hospital Course (1) Small bowel obstruction due to postoperative adhesions: Small bowel obstruction due to postoperative ideations --CT ABD:Findings are consistent with a high-grade small bowel obstruction. A transition point is identified in the ventral left mid abdomen, and this is likely on the basis of adhesions. There is trace interloop fluid and mild infiltration around the transition point. No intraperitoneal free air is identified. There is no pneumatosis intestinalis or portal venous gas. Postoperative change is seen involving the stomach and the distal descending colon. Postoperative change is seen within the ventral wall of the lower abdomen and pelvis as detailed above with [address] Correlate with the operative history. No organized/drainable fluid collection is identified. Stents are again seen within the inferior vena cava and the iliac veins as above. Left- sided nephrolithiasis. Cardiomegaly. The distal esophagus is dilated and filled with fluid. Note that this may place the patient at risk for aspiration. --Small bowel follow-through: Technically difficult study, as described above. Contrast reached the ascending colon by 3 hours. Therefore, no evidence for complete small bowel obstruction. Significant small bowel dilatation, similar to abdominal series of May 17, 2021. This suggests a persistent partial small bowel obstruction. Discrete transition point not identified. 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 Fecal occult blood test pending Received Vit K Continue Protonix 40 mg twice daily IV while hospitalized Appreciate GI input Outpatient EGD, colonoscopy Continue p.o. Protonix twice daily upon discharge for 1 month until EGD/Colonoscopy Hb stable (3) CHF (congestive heart failure): H/O [place], ischemic cardiomyopathy -Held Bumex, losartan in setting of AUGUST Monitor volume status Resume diuretics as able Acute Kidney Injury on CKD III Cr: 1.4> 0.93 Monitor renal function Avoid nephrotoxic agents as able (4) CAD (coronary artery disease): -Continue plavix, Carvedilol, Losartan (5) Dyslipidemia: -On statin (6) JOSE on CPAP: - Continue Cpap HS (7) Hypothyroidism: -Continue levothyroxine (8) Morbid obesity: - BMI 45.2 - Ambulation encouraged with SBO (9) Acute kidney injury superimposed on CKD: as above (10) Chronic deep vein thrombosis (DVT): INR 2.4>1.2 Continue Lovenox SQ till INR therapeutic Continue Coumadin -Adjust dose as needed (11) Prediabetes: A1c 6.3 DVT Px: Lovenox SQ Coumadin Code Status Full Code Total Time Total Time Spent Total Time Spent (In Minutes): 44 minutes Discharge Plan Discharge Items Patient Disposition: Home - Self-Care Reason For Visit: SMALL BOWEL OBSTRUCTION Discharge Diagnosis: Small Bowel Obstruction Acute Kidney Injury -Resolved Activity: As commented below Activity Comment: Walk daily Lifting: No more than 10 pounds Exercise/Sports: Wait until after follow-up appointment Driving/Machine Use: When cleared by Dr. Tejeda Non-emergency contact: Primary Care Provider and Surgeon Call non-emergency contact if: you have any medication questions, your symptoms worsen, you have a fever, your wound has increased redness, your wound has increased drainage and your wound pain has increased Follow-up/Referrals: Amparo Fairchild MD [Primary Care Provider] - Diet: Low Fiber Addtl Attending Provider Instructions: Follow up with your PCP Dr. Fairchild in 1 week Follow up with your Surgeon in 1 week as advised Take coumadin 5mg today. Your PT/INR is 1.2 today () Follow-up with Coumadin clinic for further adjustment of your Coumadin dosing Continue Lovenox subcutaneous twice a day until your INR is therapeutic between 2.0 to 3.0. Seek immediate medical attention if your symptoms reoccur or worsen Please take all medications as instructed on discharge list below. Please call if you have any questions or problems. You can reach a [facility] hospitalist on duty at [facility] 24 hours a day by calling [phone] Pending Studies at Discharge: No Stand-Alone Forms: [facility], Smoking Cessation Medications and DC Order Prescriptions: Continued levothyroxine [Tirosint] 200 mcg capsule 200 mcg PO DAILYBB RF: 0 atorvastatin [Lipitor] 80 mg tablet 80 mg PO QAM RF: 0 carvedilol [Coreg] 25 mg tablet 25 mg PO BID RF: 0 clopidogrel [Plavix] 75 mg tablet 75 mg PO QAM RF: 0 potassium chloride 10 mEq capsule, extended release 10 meq PO QAM RF: 0 tamsulosin [Flomax] 0.4 mg capsule 0.4 mg PO QAM RF: 0 losartan [Cozaar] 50 mg tablet 50 mg PO QAM RF: 0 ferrous sulfate [Feosol] 325 mg (65 mg iron) tablet 325 mg PO TID RF: 0 Centrum Silver 0.4-300-250 mg-mcg-mcg tablet 1 tab PO QAM RF: 0 bumetanide 1 mg tablet 1.5 mg PO QAM RF: 0 gabapentin [Neurontin] 300 mg capsule 300 mg PO BID RF: 0 warfarin [Jantoven] 2.5 mg tablet 2.5 mg PO HS RF: 0 methocarbamol 500 mg Tablet 500 mg PO DAILY PRN (Reason: Muscle Spasm) RF: 0 finasteride [Proscar] 5 mg Tablet 5 mg PO QAM RF: 0 levothyroxine [Synthroid] 50 mcg Tablet 50 mcg PO DAILYBB RF: 0 oxycodone-acetaminophen [Percocet] 5-325 mg tablet 1 tab PO Q6H PRN (Reason: pain) RF: 0 enoxaparin [Lovenox] 150 mg/mL Syringe 150 mg SUBCUT Q12H 3 Days Qty: 6 RF: 0 Discharge Orders: Discharge Order (Routine); Ordered 05/23/21 Ordered By: Sebastien Patiño Admission Data Admit Date/Time: 05/16/21 12:37 Attending Provider: Sebastien Patiño Admit Provider: Rut Nolan Primary Care Provider: Amparo Fairchild Other Providers: Eliseo Lopez ; Omid Bender ; Rosaura Hooper
== END 2021-05-23 14:40 | disposition home or self-care (01) | DRG 336 ==
LOC: ED 07:53 → SUATTDRO 12:37 → 2S 12:37 → 2N 05-17 11:00 → 2W 05-18 16:36

== ENCOUNTER 2022-07-21 05:31 | Inpatient (IN) ==
--- NOTE | 2022-07-15 09:57 | Anesthesiology Consultation ---
Date of Service July 15, 2022 Assessment & Plan (1) Encounter for pre-operative examination: - COVID screening: Per assessment on 07/15: No known COVID-19 positive contacts or current COVID-19 related symptoms. Travel screen negative. Patient vaccinated. At surgeon discretion if preop Covid testing being done. - Cardiology office visit (07/14/22): "History includes ischemic vs non ischemic cardiomyopathy with variable ejection fractions ranging 30-45% dating back to 2013 per records from [place].. Upon initial diagnosis he had underwent cardiac catheterization where he was told he had an old myocardial infarction with a small vessel and medication management was recommended. He reported no coronary intervention at that time. He was placed on appropriate medical therapies and reports his ejection fraction increased to 45-49%. Other history includes obesity, hypertension, dyslipidemia, dilated aortic root and ascending aorta, and history of significant spinal surgery that resulted in significant temporary paralysis, with significant bedsores, history of colon resection with colostomy S/P reversal in May 2020, history of DVT at the time of his spinal surgery and being bedridden. Unfortunately this resulted in Significant venous insufficiency and LE edema. He underwent right leg venous stents in 2018 which aided his LE edema.. Upcoming hemicolectomy planned for colon CA. Optimized from cardiac standpoint. No further testing required. He has already discussed his anticoagulation and antiplatelet therapies in the pre op setting with vascular and PCP. They agreed to hold Eliquis for 2 days and plavix for 5 days. He is not on these meds for cardiac reasons. Echo was done in November 2021 and plans to repeat echo in [address] if ascending aorta increases in size. H owmichel, recent Chest CT at [place] demonstrated "normal caliber thoracic aorta". The patient is to continue all current medications as listed above. No changes were made at today's visit." - Check BSG AM DOS Chart Review Chart Review: Acceptable Risk for Surgery and Patient NOT seen in Pre Admission Testing History Surgery Operation Date: 07/21/22 11:25 Proposed Procedures p Open Right Hemicolectomy - Tavares Tejeda, Height/Weight Height: 6 ft 6 in Weight: 163.293 kg Allergies Allergy/AdvReac Type Severity Reaction Status Date / Time piperacillin [From Zosyn] Allergy Mild fever and Verified 07/15/22 09:08 chills tazobactam [From Zosyn] Allergy Mild fever and Verified 07/15/22 09:08 chills Medications Home Medications Medication Instructions Recorded Confirmed Last Taken carvedilol 25 mg tablet (Coreg) 12.5 mg PO BID 03/25/21 07/15/22 06/13/22 07:00 [id number] acid 0.4 1 tab PO QAM 03/25/21 07/15/22 06/12/22 mg-lycopene 300 mcg-lutein 250 mcg tablet (Centrum Silver) cholecalciferol (vitamin D3) 50 2,000 unit PO DAILY #90 caps 01/24/22 07/15/22 06/12/22 mcg (2,000 unit) capsule levothyroxine 25 mcg tablet 25 mcg PO DAILY #90 tabs 01/27/22 07/15/22 06/13/22 07:00 apixaban 5 mg tablet (Eliquis) 5 mg PO BID #180 tabs 02/17/22 07/15/22 06/11/22 clopidogrel 75 mg tablet (Plavix) 75 mg PO QAM #100 tabs 02/23/22 07/15/22 06/11/22 levothyroxine 200 mcg tablet 200 mcg PO DAILY #100 tabs 02/23/22 07/15/22 06/13/22 07:00 ferrous sulfate 325 mg (65 mg 325 mg PO BID 04/18/22 07/15/22 06/11/22 iron) tablet sacubitril 24 mg-valsartan 26 mg 1 tab PO BID 04/18/22 07/15/22 06/12/22 tablet (Entresto) atorvastatin 80 mg tablet (Lipitor) 80 mg PO QAM #100 tabs 05/17/22 07/15/22 06/12/22 potassium chloride 10 mEq 10 meq PO QAM #100 caps 05/17/22 07/15/22 06/12/22 capsule,extended release bumetanide 1 mg tablet 1 mg PO QAM 05/24/22 07/15/22 06/13/22 07:00 gabapentin 300 mg capsule 300 mg PO BID #200 caps 05/31/22 07/15/22 06/13/22 07:00 (Neurontin) finasteride 5 mg tablet (Proscar) 5 mg PO QAM #100 tabs 06/02/22 07/15/2222 tamsulosin 0.4 mg capsule (Flomax) 0.4 mg PO DAILY #100 caps 06/02/22 07/15/22 06/12/22 sodium sul 1.479 gram-potas ch 1 tab PO .COMPLEX #24 tabs 07/07/22 07/15/22 Unknown 0.188 gram-magnes sul 0.225 gram tablet (Sutab) Past Medical History Medical History BPH (benign prostatic hyperplasia) CAD (coronary artery disease) CHF (congestive heart failure) Colon cancer Diabetes mellitus, type II diet controlled Diabetic neuropathy Dyslipidemia Elevated prostate specific antigen (PSA) Fatty liver H/O deep venous thrombosis 2016 (complication from immobility from surgery)-- bilateral LE 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 secondary to cervical spine surgery in 2016 Post op complications included decutitus ulcer, colostomy (later reversed), immobility caused right LE DVT (IVC filter placed- later removed) Hx SBO Hypertension Hypothyroidism Iron deficiency anemia Morbid obesity JOSE on CPAP PVD (peripheral vascular disease) S/p right common iliac [place] venous stent 10/01/20 S/P bilateral CIV stenting ([id number]), and REIV stenting ([id number]) 08/2019 in [place] Stenosis of iliac vein Past Family History Family History Mother Diabetes Clotting disorder Kidney disease Hypertension Father Diabetes Coronary heart disease Myocardial infarction Hypertension Uncle Colorectal cancer Other No family history of adverse response to anesthesia Denies family history of Ovarian cancer Prostate cancer Breast cancer Past Surgical History Surgical History H/O abdominal surgery (05/11/21) Abdominal Wall Exploration with Explant of Old Mesh, Component Separation, Abdominal Wall Reconstruction with Biological Mesh, Enterolysis Dr. Tejeda 05-11-2021 H/O neck surgery (2016) C3-C7 discectomy and fusion History of cardiac cath 1994- [place], [place] History of colostomy (2016) done to help heal decub ulcer at the time History of colostomy reversal (2018) History of gastric surgery (2002) hx of vertical banded gastroplasty History of incisional hernia repair Incisional hernia repair with Ventrio mesh 15x25.7cm and Biologic integra 10x12.5cm as a layered mesh Ventrio first, then Integra. (2019) History of intravascular stent placement (2017) b/l iliac stent>REASON FOR ANTICOAGULANTS S/P colonoscopy S/P hernia repair S/P insertion of IVC (inferior vena caval) filter placed in 2017, removed in 2019 Social History Smoking Status: Never smoker Do You Dip or Chew Tobacco: No Hx Alcohol Use: No Alcohol type: hard liquor alcohol intake frequency: holidays/special occasions only Hx Substance Use: No substance use type: does not use Lab Results Anesthesia Preop Results Results Anesthesia Widget: WBC 10.62 K/ul (4.8-10.8) 07/06/22 Hgb 10.7 g/dl (14.0-18.0) L 07/06/22 Hct 34.3 % (40.1-51.0) L 07/06/22 Plt 297 K/uL (130-400) 07/06/22 Na 140 mmol/L (136-145) 07/06/22 K 3.8 mmol/L (3.5-5.1) 07/06/22 Cl 106 mmol/L (98-107) 07/06/22 CO2 26 mmol/L (21-32) 07/06/22 BUN 11 mg/dl (6-23) 07/06/22 Creat 1.06 mg/dl (0.6-1.4) 07/06/22 Glucose Level 109 mg/dl (70-99(Fasting)) H 07/06/22 Testing Electrocardiogram Date: 07/06/22 Normal sinus rhythm at 70 bpm. LAFB. Echocardiogram Date: 10/06/20 LVEF 50-54%. Moderately increased concentric LV wall thickness. Mild LVD. Moderately enlarged aortic root 4.5 cm. Mildly enlarged ascending aorta 4.2 cm. No regional motion abnormality. Grade 1 diastolic dysfunction. Cardiac Catheterization Date: 10/30/19 Patient has known history of congestive cardiomyopathy. Cath today not much changed from 2015 per report. EF is 35 to 40%. And dysfunction is more pronounced inferiorly. LAD, ramus and RCA look good. There is ectasia of the distal left main. Distal circumflex is occluded as it wasIn 2015. CAD does not explain the cardiomyopathy. Medical therapy recommended for CHF management per report.
[2022-07-21] MEDS ORDERED: LR 15ML/HR IV SCH (06:00)
[2022-07-21] MEDS ORDERED: CIPROFLOXACIN / D5W 400 MG/200 ML BAG IV SCH (06:00)
[2022-07-21] MEDS ORDERED: HEPARIN SOD 5,000 UNIT/0.5 ML VIAL SC SCH (06:00)
[2022-07-21] MEDS ORDERED: metroNIDAZOLE 500 MG/100 ML BAG IV SCH (06:00)
[2022-07-21] MEDS ORDERED: MIDAZOLAM HCL 1 MG/ML 2ML VIAL ONE (06:46)
[2022-07-21] MEDS ORDERED: LIDOCAINE 2% MPF LOCAL 5 ML VIAL INFIL ONE (06:46)
[2022-07-21] MEDS ORDERED: PROPOFOL IV EMULSION 10 MG/ML 20 ML VIAL IV ONE ×2 (06:46→07:23)
[2022-07-21] MEDS ORDERED: ROCURONIUM BROMIDE 10 MG/ML 5 ML VIAL IV ONE ×4 (06:46→08:21)
[2022-07-21] MEDS ORDERED: fentaNYL citrate 100 MCG/2 ML VIAL ONE (06:47)
[2022-07-21] MEDS ORDERED: PROMETHAZINE HCL 12.5 MG in SODIUM CHLORIDE 0.9% 50 ML IV PRN (07:02)
[2022-07-21] MEDS ORDERED: ATROPINE SULFATE 0.1 MG/ML 10ML SYR IV PRN (07:02)
[2022-07-21] MEDS ORDERED: KETOROLAC 30 MG/ML VIAL IV PRN (07:02)
[2022-07-21] MEDS ORDERED: ONDANSETRON INJ 2 MG/ML 2 ML VIAL IV PRN (07:02)
--- NOTE | 2022-07-21 07:07 | History & Physical Bridge Note ---
Date of Service July 21, 2022 History & Physical Bridge Note I have examined the patient, reviewed the History & Physical and in the interval since the performance of the History & Physical I have noted the following changes of clinical significance: no changes noted
[2022-07-21] MEDS ORDERED: EPINEPHrine INJ 1 MG/ML AMP ONE (07:10)
[2022-07-21] MEDS ORDERED: BUPIVACAINE 0.5 % 5 MG/1 ML MPF 30ML VIAL ONE (07:11)
[2022-07-21] MEDS ORDERED: ONDANSETRON INJ 2 MG/ML 2 ML VIAL ONE (07:49)
[2022-07-21] MEDS ORDERED: DEXAMETHASONE SOD INJ 4 MG/ML VIAL ONE ×2 (07:49)
[2022-07-21] MEDS ORDERED: HYDROmorphone INJ 2 MG/ML SYR/VIAL ONE (07:49)
[2022-07-21] MEDS ORDERED: GLYCOPYRROLATE 0.2 MG/ML VIAL ONE ×3 (09:36→10:02)
[2022-07-21] MEDS ORDERED: NEOSTIGMINE METHYLSULFATE 1 MG/ML 10ML VIAL ONE (09:36)
[2022-07-21] MEDS: fentaNYL citrate 100 MCG/2 ML VIAL IV PRN ×4 (10:05→10:20)
--- NOTE | 2022-07-21 10:10 | Operative Report ---
PG Post Operative Report Pre & Post Diagnosis Operation Date: 07/21/22 07:15 Pre-Op Diagnosis: Colon Cancer Post-Op Diagnosis: Colon Cancer; adhesions I identified the patient and participated in the time-out.: Yes Procedure Operation Date: 07/21/22 07:15 Actual Procedures p Open Right Hemicolectomy with Enterolysis(Right) - Tavares Tejeda DO Surgeon Tavares Tejeda DO Migration Agent lorena Carey Estimated Blood Loss 150 Findings Consistent with Post-Op Diagnosis Specimens terminal ileum, cecum, right colon, portion of transverse colon Description of Procedure After informed consent was obtained the patient was taken to the operating room and placed in supine position. After successful intubation a Steele catheter was placed sterilely. The abdomen was shaved and sterilely prepped and draped in usual fashion. I began with a right paramedian incision with a 15 blade scalpel. This was carried down through the soft tissue using cautery. The anterior fascia was opened using cautery. We also used cautery to come down through and divided the muscles of the abdominal wall. I was able to elevate the peritoneum using hemostats and opened it under direct vision using a Metzenbaum scissor. This was extended to both poles using cautery. Once in the abdomen we placed a Bookwalter retractor which we used throughout the case to help with exposure. I was able to readily identify the right colon and cecum. The terminal ileum was stuck in the pelvis itself. I had to extend the incision slightly inferiorly. We continue to use traction countertraction finger fractionation and sharp scissor lysis to free up adhesions involving primarily the small bowel. Eventually I was able to deliver the terminal ileum up near the cecum. Next I transected the terminal ileum using a CRYSTAL brown cartridge linear stapler several centimeters proximal to the ileocecal valve. Next we used cautery to take down the lateral white line of Toldt using blunt finger fractionation and cautery. We carried this up and around the hepatic flexure to the mid transverse colon. I was able to actually palpate the mass which was on the cecum side of the hepatic flexure. I found a spot on the transverse colon proximal to the middle colic vessels and transected the colon using a brown cartridge linear stapler. We used the LigaSure device to take down the mesentery of the right and transverse colon's. I did passed the specimen off to the back table and opened it. In the midportion of the specimen there was a large ulcerating colon mass. This point I changed my gown and gloves and re- scrubbed. Next we performed a side to side ileotransverse anastomosis use again using a CRYSTAL brown cartridge 60 mm stapler. We used a TA 60 stapling device to close the common enterotomy. 3-[address] was [address] to place a crotch stitch. The mesenteric defect was closed using 0 Vicryl. No other gross abnormalities were identified. There was no evidence of any metastatic disease on the liver or in the abdomen itself. We thoroughly irrigated the abdomen. There was adequate hemostasis. The anastomosis was patent and intact with no evidence of ischemia. A final irrigation was performed. The fascia and muscle was closed in 1 layer using 1 looped PDS starting from either end and securing them together in the midline. Soft tissue was irrigated and skin was closed using skin nikita. A silver dressing was applied. The patient was awakened extubated and transferred recovery in stable condition. My physician visitor service assistant was present through the entire case was instrumental in assisting with exposure helping with the anastomosis wound closure and dressing placement. I attest to the content of the Intraoperative Record and any orders documented therein. Any exceptions are noted below.
[2022-07-21] MEDS ORDERED: HYDROmorphone INJ 1 MG/ML SYRINGE ONE ×2 (10:23→10:36)
[2022-07-21] MEDS ORDERED: GLYCOPYRROLATE 0.2 MG/ML VIAL IV ONE (10:23)
[2022-07-21] MEDS: HYDROmorphone INJ 1 MG/ML SYRINGE IV PRN ×8 (10:25→11:00)
[2022-07-21] MEDS ORDERED: INSULIN ASPART PER UNIT SC SCH (11:42)
[2022-07-21] MEDS ORDERED: CARBOHYDRATES FOR HYPOGLYCEMIA PO PRN (11:42)
[2022-07-21] MEDS ORDERED: NALOXONE HCL 0.4 MG/1 ML VIAL/CARP IV PRN (11:42)
[2022-07-21] MEDS ORDERED: DEXTROSE 50% 50 ML SYRINGE IV PRN (11:42)
[2022-07-21] MEDS ORDERED: GLUCOSE 40% GEL 15 GM TUBE PO PRN (11:42)
[2022-07-21] MEDS ORDERED: GLUCOSE 10 TAB/TUBE PO PRN (11:42)
[2022-07-21] MEDS ORDERED: GLUCAGON FOR INJ 1 MG VIAL SQ PRN (11:42)
[2022-07-21] MEDS ORDERED: SODIUM CHLORIDE 0.9% 1000ML 1,000 ML IV SCH (11:42)
[2022-07-21] MEDS ORDERED: PHARMACY GLYCEMIC MGMT CONSULT PRN (11:42)
--- NOTE | 2022-07-21 11:53 | Anesthesiology Progress Note ---
Date of Service July 21, 2022 Anesthesia Post Procedure Vital Signs Vital Signs: Temp Pulse Pulse Resp BP Pulse Ox O2 Del Method 07/21/22 11:20 61 13 94 Nasal Cannula 07/21/22 11:10 36.7 C 57 L 12 126/81 92 Nasal Cannula 07/21/22 11:00 66 17 130/77 95 Nasal Cannula 07/21/22 10:50 64 14 127/82 94 Nasal Cannula 07/21/22 10:40 64 12 135/77 94 Nasal Cannula 07/21/22 10:30 66 18 137/79 94 Nasal Cannula 07/21/22 10:20 67 19 129/77 95 Oxymask 07/21/22 10:10 64 13 146/80 H 93 Oxymask 07/21/22 10:00 44 L 13 115/61 95 Oxymask 07/21/22 09:53 36.3 C L 58 L 13 117/64 94 Oxymask 07/21/22 05:55 37.4 C 74 20 135/70 93 Room Air O2 Flow Rate 07/21/22 11:20 4 07/21/22 11:10 4 07/21/22 11:00 4 07/21/22 10:50 4 07/21/22 10:40 4 07/21/22 10:30 4 07/21/22 10:20 5 07/21/22 10:10 5 07/21/22 10:00 5 07/21/22 09:53 5 07/21/22 05:55 Pain Intensity Abdomen: Pain Intensity: 5 Transfer of Care Handoff Completed per policy Notes Mental Status: alert / awake / arousable Patient Amnestic to Procedure: Yes Nausea / Vomiting: adequately controlled Pain: adequately controlled Airway Patency, RR, SpO2: stable & adequate BP & HR: stable & adequate Hydration State: stable & adequate Anesthetic Complications: no major complications apparent
[2022-07-21] MEDS ORDERED: Nursing to Pharmacy Communication SCH (12:15)
[2022-07-21] MEDS ORDERED: MoRPHine SULFATE PCA 30 MG/30 ML IV PRN (12:22)
[2022-07-21] MEDS: LACTATED RINGER'S 1,000 ML IV SCH ×2 (12:58→22:14)
[2022-07-21] MEDS: ACETAMINOPHEN 1,000 MG/100 ML VIAL IV SCH ×2 (13:00→21:10)
[2022-07-21] MEDS: INSULIN ASPART PER UNIT SC SCH ×2 (13:44→18:14)
[2022-07-21] MEDS: metroNIDAZOLE 500 MG/100 ML BAG IV SCH ×2 (14:49→22:14)
--- NOTE | 2022-07-21 14:49 | Pharmacy Report ---
Pharmacy Glycemic Short Note 2 - Date of Service July 21, 2022 - Glycemic Short BSG Results (Last 24 hours): 07/21/22 07/21/22 07/21/22 05:56 10:00 12:00 POC Glucose 113 H 164 H 166 H OUTPATIENT ANTIDIABETIC REGIMEN: * N/A diet controlled * A1c 7.0% 04/14/22 ASSESSMENT: * Patient admitted following right hemicolectomy. Patient not currently on diabetes medications outpatient * POD #0, still currently NPO. Will start novolog based on adjusted bodyweight stress of 2 and hold on lantus * Lantus to be added if BSGs trend upward PLAN FOR INPATIENT GLYCEMIC CONTROL: * Hold outpatient oral diabetes medications * Basal insulin * Lantus 0/15 units HS * Bolus insulin * NovoLog per scale ACHS or Q6hrs while NPO * Goal Range: Low 110 mg/dL - High 140 mg/dL * Correction Factor: 20 mg/dL/unit * Nutritional / Prandial insulin per carb ratio of 1 unit per 9 grams CHO consumed
[2022-07-21] MEDS: CIPROFLOXACIN / D5W 400 MG/200 ML BAG IV SCH (18:18)
[2022-07-21] MEDS ORDERED: LANTUS PER UNIT CHARGE SQ ONE (21:00)
[2022-07-21] MEDS: GABAPENTIN 300 MG CAP PO SCH (21:10)
[2022-07-21] MEDS: carvediloL 12.5 MG TAB PO SCH (21:10)
[2022-07-22] MEDS: INSULIN ASPART PER UNIT SC SCH ×5 (01:05→20:55)
[2022-07-22] MEDS: ACETAMINOPHEN 1,000 MG/100 ML VIAL IV SCH ×3 (04:49→19:58)
[2022-07-22] MEDS: LEVOTHYROXINE SODIUM 200 MCG TABLET PO SCH (05:57)
[2022-07-22] MEDS: LEVOTHYROXINE SODIUM 25 MCG TABLET PO SCH (05:57)
[2022-07-22] MEDS: metroNIDAZOLE 500 MG/100 ML BAG IV SCH (05:57)
[2022-07-22] MEDS: LACTATED RINGER'S 1,000 ML IV SCH ×4 (05:58→22:20)
[2022-07-22] MEDS: CIPROFLOXACIN / D5W 400 MG/200 ML BAG IV SCH (07:14)
[2022-07-22 08:02] LABS: Basophils # (auto) 0.02 K/uL (0-0.2); Basophils % (auto) 0.2 %; Eosinophils # (auto) 0.01 K/uL (0-0.50); Eosinophils % (auto) 0.1 %; Hematocrit (blood only) 27.8 % (40.1-51.0); Hemoglobin 8.7 g/dl (14.0-18.0); Immature Granulocytes # (auto) 0.06 K/uL (0.00-0.02); Immature Granulocytes % (auto) 0.5 %; Lymphocytes # (auto) 1.39 K/uL (1.2-3.4); Lymphocytes % (auto) 10.7 %; Mean Corpuscular Hemoglobin 27.4 pg (25.0-34.0); Mean Corpuscular Hgb Conc 31.3 g/dL (32.0-36.0); Mean Corpuscular Volume 87.7 fL (80.0-100.0); Mean Platelet Volume 10.1 fL (9.4-12.4); Monocytes # (auto) 0.94 K/uL (0.24-0.82); Monocytes % (auto) 7.2 %; Neutrophils # (auto) 10.57 K/uL (1.4-6.5); Neutrophils % (auto) 81.3 %; Platelet Count 234 K/uL (130-400); RDW Coefficient of Variation 16.1 % (11.5-14.5); RDW Standard Deviation 51.6 fL (36.4-46.3); Red Blood Count 3.17 M/uL (4.63-6.08); White Blood Count 12.99 K/ul (4.8-10.8)
[2022-07-22] MEDS: GABAPENTIN 300 MG CAP PO SCH ×2 (08:27→21:16)
[2022-07-22] MEDS: FINASTERIDE 5 MG TAB PO SCH (08:27)
[2022-07-22] MEDS: carvediloL 12.5 MG TAB PO SCH ×2 (08:27→21:20)
[2022-07-22] MEDS: TAMSULOSIN HCL 0.4 MG CAP PO SCH (08:27)
[2022-07-22 08:38] LABS: BUN Creatinine Ratio 17.3 (10-20); Calcium 7.7 mg/dl (8.5-10.1); Creatinine Clr Calc Pharmacy 130.6 ml/min; Est GFR (Non-African American) 77.7 ml/min; Potassium 3.8 mmol/L (3.5-5.1)
--- NOTE | 2022-07-22 09:03 | Surgery Progress Note ---
Date of Service July 22, 2022 Assessment & Plan (1) Colonic mass: Plan: POD#1 open right hemicolectomy Patient is feeling well. Pain controlled. no n/v Labs show WBC 12.9, WBC 8.7, Cr: 1 Making good urine and up and out of bed, will d/c rosas Pt pain controlled and not utilizing EQUIPMENT WASHER much, will transition to IV pain meds prn so he can wear CPAP at night Start on clear liquids today. Await return of bowel function If labs and vitals stable tomorrow can start Lovenox 40mq qam OOB as tolerates [facility] surgery covering the weekend As above. Patient doing great at this point. If stable recommend starting Lovenox tomorrow. Admission and Anticipated Discharge Date Admission Date: July 21, 2022 Subjective Patient is feeling well. No n/v. Pain is controlled. Wants to wear his CPAP at night. Has been up ambulating and wants to do more today. Physical Exam Physical Exam: awake/alert Gastrointestinal (Abdomen): Inspection/Auscultation: + abdominal surgical incision (surgical dressings in place) Percussion/Palpation: abdomen soft Results & Data ([facility]) Vital Signs (Past 12 Hours) Vital Signs Temp Pulse Resp BP Pulse Ox O2 Del Method O2 Flow Rate 07/22/22 07:32 36.9 C 68 16 103/59 L 94 Nasal Cannula 2 07/22/22 02:55 37.2 C 64 18 96/56 L 94 Nasal Cannula 2 07/21/22 22:25 36.7 C 67 20 103/61 94 Nasal Cannula 2 07/21/22 21:08 65 113/70 PG Care Time/CCT Total # of Minutes Spent Total Time Spent with Patient: Total time spent is greater than 50% in coordination of care (as documented) at patient's floor/unit and/or counseling patient: Coding Level of Care Code None Diagnoses Colonic mass K63.89
[2022-07-22] MEDS ORDERED: Nursing to Pharmacy Communication SCH (11:30)
[2022-07-22] MEDS: MoRPHine SULFATE 2 MG/ML CARP IV PRN (13:06)
--- NOTE | 2022-07-22 14:01 | Pharmacy Report ---
Pharmacy Glycemic Short Note 2 - Date of Service July 22, 2022 - Glycemic Short BSG Results (Last 24 hours): 07/21/22 07/21/22 07/22/22 17:19 20:23 00:23 Glucose POC Glucose 166 H 177 H 145 H 07/22/22 07/22/22 07/22/22 06:18 07:24 12:17 Glucose 121 H POC Glucose 130 H 125 H OUTPATIENT ANTIDIABETIC REGIMEN: * N/A diet controlled * A1c 7.0% 04/14/22 ASSESSMENT: 07/22 * Fasting this AM within goal range with 0 units of lantus given last night, will keep scale for tonight * Patient ordered diet with lunch, will reassess novolog parameters with diet change 07/21 * Patient admitted following right hemicolectomy. Patient not currently on diabetes medications outpatient * POD #0, still currently NPO. Will start novolog based on adjusted bodyweight stress of 2 and hold on lantus * Lantus to be added if BSGs trend upward PLAN FOR INPATIENT GLYCEMIC CONTROL: * Hold outpatient oral diabetes medications * Basal insulin * Lantus 0/15 units HS * Bolus insulin * NovoLog per scale ACHS or Q6hrs while NPO * Goal Range: Low 110 mg/dL - High 140 mg/dL * Correction Factor: 20 mg/dL/unit * Nutritional / Prandial insulin per carb ratio of 1 unit per 9 grams CHO consumed
[2022-07-22] MEDS: MoRPHine SULFATE 4 MG/ML 1 ML CARP\\VIAL IV PRN (16:01)
[2022-07-22] MEDS ORDERED: INSULIN ASPART PER UNIT SC SCH (16:30)
[2022-07-22] MEDS ORDERED: LANTUS PER UNIT CHARGE SQ ONE (21:00)
[2022-07-22] MEDS ORDERED: CALCIUM CARBONATE 500 MG CHEWABLE TAB ONE (21:14)
[2022-07-23] MEDS: MoRPHine SULFATE 4 MG/ML 1 ML CARP\\VIAL IV PRN ×6 (02:10→23:00)
[2022-07-23] MEDS: LACTATED RINGER'S 1,000 ML IV SCH ×3 (05:03→19:24)
[2022-07-23] MEDS: ACETAMINOPHEN 1,000 MG/100 ML VIAL IV SCH ×3 (05:04→21:02)
[2022-07-23] MEDS: LEVOTHYROXINE SODIUM 200 MCG TABLET PO SCH (05:12)
[2022-07-23] MEDS: LEVOTHYROXINE SODIUM 25 MCG TABLET PO SCH (05:12)
[2022-07-23 07:44] LABS: Basophils # (auto) 0.05 K/uL (0-0.2); Basophils % (auto) 0.5 %; Eosinophils # (auto) 0.32 K/uL (0-0.50); Eosinophils % (auto) 3.2 %; Hemoglobin 8.7 g/dl (14.0-18.0); Immature Granulocytes # (auto) 0.04 K/uL (0.00-0.02); Immature Granulocytes % (auto) 0.4 %; Lymphocytes # (auto) 2.08 K/uL (1.2-3.4); Lymphocytes % (auto) 20.8 %; Mean Corpuscular Hemoglobin 27.4 pg (25.0-34.0); Mean Corpuscular Hgb Conc 31.1 g/dL (32.0-36.0); Mean Corpuscular Volume 88.1 fL (80.0-100.0); Mean Platelet Volume 10.1 fL (9.4-12.4); Monocytes # (auto) 0.84 K/uL (0.24-0.82); Monocytes % (auto) 8.4 %; Neutrophils # (auto) 6.65 K/uL (1.4-6.5); Neutrophils % (auto) 66.7 %; Platelet Count 218 K/uL (130-400); RDW Coefficient of Variation 16.2 % (11.5-14.5); RDW Standard Deviation 52.1 fL (36.4-46.3); Red Blood Count 3.18 M/uL (4.63-6.08); White Blood Count 9.98 K/ul (4.8-10.8)
[2022-07-23 08:14] LABS: BUN Creatinine Ratio 15.2 (10-20); Calcium 8.2 mg/dl (8.5-10.1); Creatinine Clr Calc Pharmacy 137.2 ml/min; Est GFR (African American) 95.5 ml/min; Est GFR (Non-African American) 82.4 ml/min; Potassium 3.6 mmol/L (3.5-5.1)
[2022-07-23] MEDS: MoRPHine SULFATE 2 MG/ML CARP IV PRN (08:53)
[2022-07-23] MEDS: GABAPENTIN 300 MG CAP PO SCH ×2 (09:25→21:03)
[2022-07-23] MEDS: carvediloL 12.5 MG TAB PO SCH ×2 (09:25→21:03)
[2022-07-23] MEDS: FINASTERIDE 5 MG TAB PO SCH (09:25)
[2022-07-23] MEDS: TAMSULOSIN HCL 0.4 MG CAP PO SCH (09:25)
[2022-07-23] MEDS: INSULIN ASPART PER UNIT SC SCH ×4 (09:30→21:35)
[2022-07-23] MEDS: ONDANSETRON INJ 2 MG/ML 2 ML VIAL IV PRN ×2 (10:45→19:32)
--- NOTE | 2022-07-23 14:51 | Surgery Progress Note ---
Date of Service July 23, 2022 Assessment & Plan (1) Colonic mass: Plan: s/p colectomyPOD#2, Await return of bowel function. encouraged ambulation. Will not advance diet yet given his distention on exam. (2) Morbid obesity: (3) Urinary retention: Plan: rosas reinserted yesterday as he was unable to void. Will try to remove again as he gets more active. Admission and Anticipated Discharge Date Admission Date: July 21, 2022 Subjective Complaining of abdominal pain, worse when he coughs. Crampy, no flatus yet. Was walking yesterday. No nausea or vomiting. feels like he has phlegm in his throat from intubation. Review of Systems Review of Systems: All systems reviewed & are unremarkable except as noted in HPI & below Physical Exam Constitutional: WD/WN, vitals as above Respiratory: decreased breath sounds at bases, no crackles Gastrointestinal (Abdomen): soft, distended, hypoactive bowel tones, as expected tenderness around incision, dressing dry with old blood circled Musculoskeletal: no cyanosis or clubbing, extremities motor strength 5/5 Neurologic: awake; no focal motor deficits Results & Data ([facility]) Vital Signs (Past 12 Hours) Vital Signs Temp Pulse Resp BP Pulse Ox O2 Del Method 07/23/22 07:13 36.8 C 61 18 120/69 94 CPAP Laboratory Results 07/23/22 07/23/22 07/23/22 Range/Units 12:09 08:12 07:06 WBC (4.8-10.8) K/ul RBC (4.63-6.08) M/uL Hgb (14.0-18.0) g/dl Hct (40.1-51.0) % MCV (80.0-100.0) fL MCH (25.0-34.0) pg MCHC (32.0-36.0) g/dL RDW Std Deviation (36.4-46.3) fL RDW Coeff of Jason (11.5-14.5) % Plt Count (130-400) K/uL MPV (9.4-12.4) fL Immature Gran % (Auto) % Neut % (Auto) % Lymph % (Auto) % [place] % (Auto) % Eos % (Auto) % Baso % (Auto) % Neut # (Auto) (1.4-6.5) K/uL Lymph # (Auto) (1.2-3.4) K/uL [place] # (Auto) (0.24-0.82) K/uL Eos # (Auto) (0-0.50) K/uL Baso # (Auto) (0-0.2) K/uL Immature Gran # (Auto) (0.00-0.02) K/uL Sodium 139 (136-145) mmol/L Potassium 3.6 (3.5-5.1) mmol/L Chloride 106 (98-107) mmol/L Carbon Dioxide 29 (21-32) mmol/L Anion Gap 4 (3-11) BUN 15 (6-23) mg/dl Creatinine 0.99 (0.6-1.4) mg/dl Est Cr Clr Drug Dosing 137.2 ml/min Est GFR ( Amer) 95.5 ml/min Est GFR (Non-Af Amer) 82.4 ml/min BUN/Creatinine Ratio 15.2 (10-20) Glucose 94 (70-99(Fasting)) mg/dl POC Glucose 108 H 101 H (70-99) mg/dl Calcium 8.2 L (8.5-10.1) mg/dl 07/23/22 07/22/22 07/22/22 Range/Units 07:06 20:48 17:37 WBC 9.98 (4.8-10.8) K/ul RBC 3.18 L (4.63-6.08) M/uL Hgb 8.7 L (14.0-18.0) g/dl Hct 28.0 L (40.1-51.0) % MCV 88.1 (80.0-100.0) fL MCH 27.4 (25.0-34.0) pg MCHC 31.1 L (32.0-36.0) g/dL RDW Std Deviation 52.1 H (36.4-46.3) fL RDW Coeff of Jason 16.2 H (11.5-14.5) % Plt Count 218 (130-400) K/uL MPV 10.1 (9.4-12.4) fL Immature Gran % (Auto) 0.4 % Neut % (Auto) 66.7 % Lymph % (Auto) 20.8 % [place] % (Auto) 8.4 % Eos % (Auto) 3.2 % Baso % (Auto) 0.5 % Neut # (Auto) 6.65 H (1.4-6.5) K/uL Lymph # (Auto) 2.08 (1.2-3.4) K/uL [place] # (Auto) 0.84 H (0.24-0.82) K/uL Eos # (Auto) 0.32 (0-0.50) K/uL Baso # (Auto) 0.05 (0-0.2) K/uL Immature Gran # (Auto) 0.04 H (0.00-0.02) K/uL Sodium (136-145) mmol/L Potassium (3.5-5.1) mmol/L Chloride (98-107) mmol/L Carbon Dioxide (21-32) mmol/L Anion Gap (3-11) BUN (6-23) mg/dl Creatinine (0.6-1.4) mg/dl Est Cr Clr Drug Dosing ml/min Est GFR ( Amer) ml/min Est GFR (Non-Af Amer) ml/min BUN/Creatinine Ratio (10-20) Glucose (70-99(Fasting)) mg/dl POC Glucose 117 H 124 H (70-99) mg/dl Calcium (8.5-10.1) mg/dl
[2022-07-23] MEDS: CALCIUM CARBONATE 500 MG CHEWABLE TAB PO PRN (18:15)
[2022-07-24] MEDS ORDERED: ALUMINUM/MAGNESIUM SUSP 30 ML UDC PO PRN (01:11)
[2022-07-24] MEDS ORDERED: CALCIUM CARBONATE 500 MG CHEWABLE TAB PO ONE (01:12)
[2022-07-24] MEDS: LACTATED RINGER'S 1,000 ML IV SCH ×2 (01:35→08:29)
[2022-07-24] MEDS: ONDANSETRON INJ 2 MG/ML 2 ML VIAL IV PRN ×2 (02:14→13:12)
[2022-07-24] MEDS: MoRPHine SULFATE 2 MG/ML CARP IV PRN ×2 (03:02→19:54)
[2022-07-24] MEDS ORDERED: METOCLOPRAMIDE HCL INJ 5 MG/ML 2 ML VIAL IV PRN (04:29)
[2022-07-24] MEDS: ACETAMINOPHEN 1,000 MG/100 ML VIAL IV SCH (04:57)
[2022-07-24] MEDS: MoRPHine SULFATE 4 MG/ML 1 ML CARP\\VIAL IV PRN ×6 (05:22→21:55)
[2022-07-24] MEDS: INSULIN ASPART PER UNIT SC SCH ×3 (06:31→18:12)
[2022-07-24] MEDS: LEVOTHYROXINE SODIUM 200 MCG TABLET PO SCH (06:36)
[2022-07-24] MEDS: LEVOTHYROXINE SODIUM 25 MCG TABLET PO SCH (06:36)
--- NOTE | 2022-07-24 06:44 | XRay Report ---
XR chest 1V portable CLINICAL HISTORY: NG Tube Placement COMPARISON STUDY: Chest CT June 29, 2022. FINDINGS: There is no pneumothorax. No pleural effusion is identified Cardiomegaly is noted. There is pulmonary vascular congestion without evidence for overt pulmonary edema. Bibasilar opacities are no joe. The tip of the nasogastric tube is partially obscured but likely projects over the proximal stom ach. IMPRESSION: 1. Tip of nasogastric tube partially obscured but likely projects over the proximal stomach. 2. Cardiomegaly with pulmonary vascular congestion. 3. Bibasilar opacities which favor atelectasis. ACT 112: Negative or not required by law. Electronically signed by: Pedro Sharpe M.D. 07/24/2022 6:43 AM
[2022-07-24 07:14] LABS: Basophils # (auto) 0.04 K/uL (0-0.2); Basophils % (auto) 0.4 %; Eosinophils # (auto) 0.18 K/uL (0-0.50); Eosinophils % (auto) 1.6 %; Hematocrit (blood only) 30.2 % (40.1-51.0); Hemoglobin 9.4 g/dl (14.0-18.0); Immature Granulocytes # (auto) 0.03 K/uL (0.00-0.02); Immature Granulocytes % (auto) 0.3 %; Lymphocytes # (auto) 1.12 K/uL (1.2-3.4); Lymphocytes % (auto) 9.9 %; Mean Corpuscular Hgb Conc 31.1 g/dL (32.0-36.0); Mean Corpuscular Volume 86.8 fL (80.0-100.0); Mean Platelet Volume 10.5 fL (9.4-12.4); Monocytes # (auto) 0.68 K/uL (0.24-0.82); Neutrophils # (auto) 9.28 K/uL (1.4-6.5); Neutrophils % (auto) 81.8 %; Platelet Count 243 K/uL (130-400); RDW Coefficient of Variation 15.9 % (11.5-14.5); RDW Standard Deviation 50.7 fL (36.4-46.3); Red Blood Count 3.48 M/uL (4.63-6.08); White Blood Count 11.33 K/ul (4.8-10.8)
[2022-07-24 07:50] LABS: BUN Creatinine Ratio 16.3 (10-20); Calcium 8.6 mg/dl (8.5-10.1); Creatinine Clr Calc Pharmacy 147.7 ml/min; Est GFR (African American) 104.4 ml/min; Est GFR (Non-African American) 90.1 ml/min; Potassium 3.6 mmol/L (3.5-5.1)
[2022-07-24] MEDS: FINASTERIDE 5 MG TAB PO SCH (08:04)
--- NOTE | 2022-07-24 11:02 | Surgery Progress Note ---
Date of Service July 24, 2022 Assessment & Plan (1) S/P right colectomy: Plan: Nausea / emesis - ng tube placed with improvement in symptoms. Will check abdominal xray in morning. Encouraged walking to help with return of bowel function. Mild leukocytosis - will monitor. Admission and Anticipated Discharge Date Admission Date: July 21, 2022 Subjective NG placed yesterday due to emesis, frequent belching, heartburn. Feels better with ng in today. He is passing small amounts of flatus but still feels quite distended. NG with 750 cc out since placed. Physical Exam Constitutional: WD/WN, vitals as above Respiratory: normal respiratory effort, lungs clear to auscultation Cardiovascular: RRR, no murmur, no edema Gastrointestinal (Abdomen): Inspection/Auscultation: + abdomen distended and + hypoactive bowel sounds Percussion/Palpation: abdomen soft; abdomen nontender incision clean and dry Neurologic: awake; no focal motor deficits Results & Data ([facility]) Vital Signs (Past 12 Hours) Vital Signs Temp Pulse Resp BP Pulse Ox O2 Del Method 07/24/22 07:00 37 C 67 18 133/80 91 Room Air Laboratory Results Abnormal lab results 07/23/22 07/23/22 07/23/22 Range/Units 12:09 17:15 20:38 WBC (4.8-10.8) K/ul RBC (4.63-6.08) M/uL Hgb (14.0-18.0) g/dl Hct (40.1-51.0) % MCHC (32.0-36.0) g/dL RDW Std Deviation (36.4-46.3) fL RDW Coeff of Jason (11.5-14.5) % Neut # (Auto) (1.4-6.5) K/uL Lymph # (Auto) (1.2-3.4) K/uL Immature Gran # (Auto) (0.00-0.02) K/uL Glucose (70-99(Fasting)) mg/dl POC Glucose 108 H 114 H 105 H (70-99) mg/dl 07/24/22 07/24/22 07/24/22 Range/Units 06:22 06:43 06:43 WBC 11.33 H (4.8-10.8) K/ul RBC 3.48 L (4.63-6.08) M/uL Hgb 9.4 L (14.0-18.0) g/dl Hct 30.2 L (40.1-51.0) % MCHC 31.1 L (32.0-36.0) g/dL RDW Std Deviation 50.7 H (36.4-46.3) fL RDW Coeff of Jason 15.9 H (11.5-14.5) % Neut # (Auto) 9.28 H (1.4-6.5) K/uL Lymph # (Auto) 1.12 L (1.2-3.4) K/uL Immature Gran # (Auto) 0.03 H (0.00-0.02) K/uL Glucose 117 H (70-99(Fasting)) mg/dl POC Glucose 115 H (70-99) mg/dl
[2022-07-24] MEDS: TAMSULOSIN HCL 0.4 MG CAP PO SCH (11:16)
[2022-07-24] MEDS: carvediloL 12.5 MG TAB PO SCH (11:16)
[2022-07-24] MEDS: GABAPENTIN 250 MG/5 ML 470 ML BTL NG SCH ×2 (11:16→20:15)
--- NOTE | 2022-07-24 12:35 | Hospitalist Consultation ---
Date of Consultation July 24, 2022 Assessment & Plan (1) S/P right colectomy: S/p right colectomy for colonic mass, C/B ileus Invasive adenocarcinoma of ascending colon Management by primary team, NGT in place Serial x-rays N.p.o. -IVF paused as patient has a history of CHF and is clinically volume up with pulmonary vascular congestion. Discussed DVT prophylaxis. Patient with venous stents but no cardiac stents with prior perioperative DVT on Plavix and apixaban [employer]. while n.p.o. for ileus will start 60 mg Lovenox twice daily for BMI for DVT prevention. If tolerating well and no signs of bleeding can increase to 1MPK twice daily tomorrow, and then resume/transition to apixaban once no longer n.p.o. CAD, CHF Cardiomyopathy ischemic versus nonischemic, past EF ranging 30-45%. Improved to 45-50% with medical therapy. Does not have cardiac stents, but does have venous stenting in 2019 for lower extremity edema following his DVT. Hold atorvastatin 80 mg daily, resume once able to tolerate p.o. Hold Bumex 1 mg p.o. every morning, if continuing to be fluid up add Bumex 1 mg IV daily. If dry while n.p.o., add gentle IVFM @ 80cc/hr 500cc at a time. Plavix 75 mg daily held while n.p.o. discussed various options with primary surgical team for both venous stent protection and DVT prophylaxis including rectal aspirin and Lovenox. Will add lovenox as noted above for now Entresto twice daily held while n.p.o. BP normotensive 07/24 Carvedilol 12.5 mg p.o. twice daily held while n.p.o. Beta-anabel converted to metoprolol 5 mg IV every 6 hours while NPO CXR shows cardiomegaly with pulmonary vascular congestion. Currently on LR 100, satting 88% on room air, creatinine 0.92 with ratio 16.3 IVFM stopped. If worsening hypoxia add Bumex 1 mg IV daily, follow volume status clinically and adjust between diuretics and fluid status as clinically indicated History of DVT provoked by spinal surgery 2019 On DOAC as outpatient Lovenox with transition back to apixaban once milligram p.o. as above Type II DM Glucose checks every 6 hours, AC/at bedtime once no longer n.p.o. Continue insulin SSI, goal BSG 1001 40 - Pharm glycemic consult in place from 1* team History of anemia Without GI bleeding, and with ferritin low normal Follow CBC with Lovenox above, trend daily. Uptrending to 9.410/30 Hypothyroidism Home Synthroid to 25 mcg daily converted to 157 mcg IV daily while n.p.o. BPH with LUTS Tamsulosin 0.4 mg held while n.p.o., Bladder scan every shift for retention, if Retaining Place, [place] (2) Ischemic cardiomyopathy: (3) Cervical myelopathy: (4) Chronic deep vein thrombosis (DVT): (5) BPH with obstruction/lower urinary tract symptoms: (6) Diabetes mellitus, type II: (7) Dyslipidemia: (8) CHF (congestive heart failure): (9) CAD (coronary artery disease): (10) JOSE on CPAP: (11) Hypothyroidism: History of Present Illness Attending Physician: Tavares Tejeda, History of Present Illness Bobby is a 7-year-old male with a past medical history of ischemic cardiomyopathy, cervical myelopathy, morbid obesity, DVT, BPH with LUTS, type II DM with neuropathy, CHF, JOSE on CPAP, and hypothyroidism who was admitted by surgery for colectomy 2/2 colonic mass now s/p open right hemicolectomy 07/21/2022 with course complicated by ileus. We have been consulted for medical management of comorbidities while NPO. Bobby is seen at the bedside. He reports that overall he feels tired and has a sore/dry throat. "Just want to feel better ". Reports his surgeon is Dr. Rosales said, but is being covered by Dr. Agrawal over the weekend. He is somewhat frustrated by his ileus, but appreciative of additional care. Notes that he did have a past heart attack which was found on a subsequent cardiac eval and told this was "old "when his ejection fraction was reduced down to the 30s. He had a cardiac catheterization which did not show any stent double disease and he was placed on medical therapy including Entresto and beta-anabel. His EF normalized to 50% after this. He reports he does not have any cardiac stents, but does have 2 venous stents in his lower extremities which were placed for edema after he had a DVT in the setting of spinal surgery. He temporarily had a IVC filter placed which was removed 2 years later and is no longer present. He is on Plavix for his stents, had been on aspirin but was switched although notes that he did not fail aspirin therapy and is not sure why he was switched. Is continued on apixaban for DVT prevention. No history of A. fib. He reports he takes Bumex for lower extremity swelling, denies any problems with orthopnea. He feels he is breathing normally at time bedside assessment, but is on 2 L of oxygen and notes some swelling in his legs. Passed gas last night, no bowel movement. Notes he has type 2 diabetes mellitus, now diet controlled without antilipemics with good A1c at last check. Medical History: Reviewed Medications: Reviewed Surgical History: Reviewed Allergies: Reviewed Social History: No tobacco/etoh use Code Status: Full COde Allergies Allergy/AdvReac Type Severity Reaction Status Date / Time piperacillin [From Zosyn] Allergy Mild fever and Verified 07/21/22 06:00 chills tazobactam [From Zosyn] Allergy Mild fever and Verified 07/21/22 06:00 chills Home Medications Medication Instructions Recorded Confirmed Type carvedilol 25 mg tablet (Coreg) 12.5 mg PO BID 03/25/21 07/21/22 History gareobai-imx-wmsbw acid 0.4 1 tab PO QAM 03/25/21 07/21/22 History mg-lycopene 300 mcg-lutein 250 mcg tablet (Centrum Silver) cholecalciferol (vitamin D3) 50 2,000 unit PO DAILY #90 caps 01/24/22 07/21/22 Rx mcg (2,000 unit) capsule levothyroxine 25 mcg tablet 25 mcg PO DAILY #90 tabs 01/27/22 07/21/22 Rx apixaban 5 mg tablet (Eliquis) 5 mg PO BID #180 tabs 02/17/22 07/21/22 Rx clopidogrel 75 mg tablet (Plavix) 75 mg PO QAM #100 tabs 02/23/22 07/21/22 Rx levothyroxine 200 mcg tablet 200 mcg PO DAILY #100 tabs 02/23/22 07/21/22 Rx ferrous sulfate 325 mg (65 mg 325 mg PO BID 04/18/22 07/21/22 History iron) tablet sacubitril 24 mg-valsartan 26 mg 1 tab PO BID 04/18/22 07/21/22 History tablet (Entresto) atorvastatin 80 mg tablet (Lipitor) 80 mg PO QAM #100 tabs 05/17/22 07/21/22 Rx potassium chloride 10 mEq 10 meq PO QAM #100 caps 05/17/22 07/21/22 Rx capsule,extended release bumetanide 1 mg tablet 1 mg PO QAM 05/24/22 07/21/22 History gabapentin 300 mg capsule 300 mg PO BID #200 caps 05/31/22 07/21/22 Rx (Neurontin) finasteride 5 mg tablet (Proscar) 5 mg PO QAM #100 tabs 06/02/22 07/21/22 Rx tamsulosin 0.4 mg capsule (Flomax) 0.4 mg PO DAILY #100 caps 06/02/22 07/21/22 Rx sodium sul 1.479 gram-potas ch 1 tab PO .COMPLEX #24 tabs 07/07/22 07/21/22 Rx 0.188 gram-magnes sul 0.225 gram tablet (Sutab) peg 3350-electrolytes 236 240 ml PO Q10M #4,000 mL 07/18/22 07/21/22 Rx gram-22.74 gram-6.74 gram-5.86 gram solution (Golytely) Patient History Medical History (Updated 07/23/22 @ 14:50 by Jana Agrawal MD) BPH (benign prostatic hyperplasia) CAD (coronary artery disease) CHF (congestive heart failure) Colon cancer Diabetes mellitus, type II diet controlled Diabetic neuropathy Dyslipidemia Elevated prostate specific antigen (PSA) Encounter for pre-operative examination Fatty liver H/O deep venous thrombosis 2016 (complication from immobility from surgery)-- bilateral LE 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 secondary to cervical spine surgery in 2017 Post op complications included decutitus ulcer, colostomy (later reversed), immobility caused right LE DVT (IVC filter placed- later removed) Hx SBO Hypertension Hypothyroidism Iron deficiency anemia Morbid obesity JOSE on CPAP PVD (peripheral vascular disease) S/p right common iliac [place] venous stent 10/01/20 S/P bilateral CIV stenting ([id number]), and REIV stenting ([id number]) 08/2019 in [place] Stenosis of iliac vein Surgical History (Updated 07/24/22 @ 11:00 by Jana Agrawal MD) H/O abdominal surgery (05/11/21) Abdominal Wall Exploration with Explant of Old Mesh, Component Separation, Abdominal Wall Reconstruction with Biological Mesh, Enterolysis Dr. Tejeda 05-11-2021 H/O hemicolectomy (07/21/22) Open Right Hemicolectomy with Enterolysis(Right) - Tavares Tejeda DO H/O neck surgery (2016) C3-C7 discectomy and fusion History of cardiac cath 1994- [place] History of colostomy (2016) done to help heal decub ulcer at the time History of colostomy reversal (2018) History of gastric surgery (2002) hx of vertical banded gastroplasty History of incisional hernia repair Incisional hernia repair with Ventrio mesh 15x25.7cm and Biologic integra 10x12.5cm as a layered mesh Ventrio first, then Integra. (2019) History of intravascular stent placement (2016) b/l iliac stent>REASON FOR ANTICOAGULANTS S/P colonoscopy S/P hernia repair S/P insertion of IVC (inferior vena caval) filter placed in 2016, removed in 2018 Family History Mother Diabetes Clotting disorder Kidney disease Hypertension Father Diabetes Coronary heart disease Myocardial infarction Hypertension Uncle Colorectal cancer Other No family history of adverse response to anesthesia Denies family history of Ovarian cancer Prostate cancer Breast cancer Social History Smoking Status: Never smoker Second Hand Exposure: No; Do You Dip or Chew Tobacco: No; Hx Alcohol Use: No Hx Substance Use: No Preferred Language: Faroese Communication Ability: Effective Visual Impairment: No Limitations Hearing Ability: Normal Production Counter Required: No Beliefs That Will Affect Care: None marital status: Single Current Living Situation: Alone current occupational status: disabled How many Children do You have: 0 Feels Safe at Home: Yes Safety Concerns: Feels Safe At This Time Diet Comment: regular caffeine: Yes during the past year weight has: remained stable Dental Care, Regularly: Yes Physical Activity Frequency: Other Physical Activity Frequency Comment: limited due to balance Seatbelt Use: always Sunscreen Use: No Assistive Devices: Cane and Walker Review of Systems Review of Systems: All systems reviewed & are unremarkable except as noted in Subjective Physical Exam Physical Exam: General: A&Ox3. NAD. Cooperative. HEENT: Atraumatic, normocephalic. Vision/hearing intact. NGT in place. Pulm: Clear bilaterally, no crackles/rales appreciated. -wheezes, -rales, - rhonchi. Symmetrical chest rise. No increased work of breathing. No respiratory distress. Cardiac: RRR, -mrg. Radial pulses intact and symmetrical. Abdominal: Distended, bowel sounds diminished. No rebound tenderness, nontender. Postsurgical incision intact C/C/I Extremities: Lower extremity edema present Results & Data Results & Data ([facility]) Vital Signs (Past 12 Hours) Vital Signs Temp Pulse Resp BP Pulse Ox O2 Del Method O2 Flow Rate 07/24/22 09:10 36.9 C 68 16 137/78 87 L Room Air 07/24/22 07:30 Nasal Cannula 2 07/24/22 07:00 37 C 67 18 133/80 91 Room Air PG Care Time/CCT Total # of Minutes Spent Total Time Spent with Patient: Total time spent is greater than 50% in coordination of care (as documented) at patient's floor/unit and/or counseling patient: Coding Level of Care Code 79943 Inpt Consult Level 5 Diagnoses S/P right colectomy Z90.49 Ischemic cardiomyopathy I25.5 Cervical myelopathy G95.9 Chronic deep vein thrombosis (DVT) I82.509 BPH with obstruction/lower urinary tract symptoms N40.1; N13.8 Diabetes mellitus, type II E11.9 Dyslipidemia E78.5 CHF (congestive heart failure) I50.9 CAD (coronary artery disease) I25.10 JOSE on CPAP G47.33; Z99.89 Hypothyroidism E03.9
[2022-07-24] MEDS: ENOXAPARIN INJ 60 MG/0.6 ML SYR SQ SCH (14:27)
[2022-07-24] MEDS: METOPROLOL TARTRATE 1 MG/ML VIAL IV SCH (17:24)
[2022-07-25] MEDS: INSULIN ASPART PER UNIT SC SCH ×4 (00:29→18:16)
[2022-07-25] MEDS: ENOXAPARIN INJ 60 MG/0.6 ML SYR SQ SCH ×3 (00:40→23:49)
[2022-07-25] MEDS: METOPROLOL TARTRATE 1 MG/ML VIAL IV SCH ×5 (00:41→23:54)
[2022-07-25] MEDS ORDERED: CHLORASEPTIC 1.4% SOLN 180 ML BTL MT PRN (00:47)
[2022-07-25] MEDS: MoRPHine SULFATE 2 MG/ML CARP IV PRN ×3 (00:55→21:24)
[2022-07-25] MEDS: MoRPHine SULFATE 4 MG/ML 1 ML CARP\\VIAL IV PRN (06:01)
[2022-07-25] MEDS ORDERED: ACETAMINOPHEN 1,000 MG/100 ML VIAL IV PRN (07:51)
--- NOTE | 2022-07-25 07:56 | Surgery Progress Note ---
Date of Service July 25, 2022 Assessment & Plan (1) S/P right colectomy: Plan: POD#4 open right hemicolectomy VSS, on 2L O2. Labs are pending NGT in place (~800cc documented last shift). KUB ordered, but likely leave in until more meaningful return of bowel fxn Okay for ice chips/hard candy Wound c/d/i- looks good, no signs of infection Appreciate hospitalists assistance with the patient. currently on bid lovenox OOB as tolerates as above passing gas. overall doing ok. pain controlled. wound looks good awaiting return of bowel fx keep ngt for now Admission and Anticipated Discharge Date Admission Date: July 21, 2022 Subjective Patient feeling okay. Hearing a lot of abdominal rumbling. No BM yet. No nausea. Feels better with NGT. Pain manageable. Physical Exam Physical Exam: awake/alert, no distress Respiratory: normal respiratory effort Gastrointestinal (Abdomen): Inspection/Auscultation: + abdomen distended and + abdominal surgical incision (c/d/i with nikita, no signs of infection ) Percussion/Palpation: abdomen soft Results & Data ([facility]) Vital Signs (Past 12 Hours) Vital Signs Temp Pulse Pulse Pulse Resp BP BP 07/25/22 05:51 77 143/76 H 07/24/22 22:22 69 07/25/22 02:17 37.3 C 73 18 134/79 07/25/22 00:41 74 143/76 H 07/24/22 22:38 37.1 C 69 18 BP Pulse Ox O2 Del Method O2 Flow Rate 07/25/22 05:51 07/24/22 22:22 07/25/22 02:17 93 Nasal Cannula 2 07/25/22 00:41 07/24/22 22:38 159/75 H 92 2 PG Care Time/CCT Total # of Minutes Spent Total Time Spent with Patient: Total time spent is greater than 50% in coordination of care (as documented) at patient's floor/unit and/or counseling patient: Coding Level of Care Code None Diagnoses S/P right colectomy Z90.49
[2022-07-25 08:13] LABS: Basophils # (auto) 0.04 K/uL (0-0.2); Basophils % (auto) 0.4 %; Eosinophils # (auto) 0.14 K/uL (0-0.50); Eosinophils % (auto) 1.3 %; Hematocrit (blood only) 29.8 % (40.1-51.0); Hemoglobin 9.3 g/dl (14.0-18.0); Immature Granulocytes # (auto) 0.04 K/uL (0.00-0.02); Immature Granulocytes % (auto) 0.4 %; Lymphocytes # (auto) 1.42 K/uL (1.2-3.4); Lymphocytes % (auto) 13.5 %; Mean Corpuscular Hemoglobin 26.6 pg (25.0-34.0); Mean Corpuscular Hgb Conc 31.2 g/dL (32.0-36.0); Mean Corpuscular Volume 85.4 fL (80.0-100.0); Monocytes # (auto) 0.75 K/uL (0.24-0.82); Monocytes % (auto) 7.1 %; Neutrophils # (auto) 8.13 K/uL (1.4-6.5); Neutrophils % (auto) 77.3 %; Platelet Count 256 K/uL (130-400); RDW Standard Deviation 49.9 fL (36.4-46.3); Red Blood Count 3.49 M/uL (4.63-6.08); White Blood Count 10.52 K/ul (4.8-10.8)
[2022-07-25 08:40] LABS: Calcium 8.7 mg/dl (8.5-10.1); Creatinine Clr Calc Pharmacy 137.4 ml/min; Est GFR (African American) 94.4 ml/min; Est GFR (Non-African American) 81.4 ml/min; Potassium 3.7 mmol/L (3.5-5.1)
[2022-07-25] MEDS: TAMSULOSIN HCL 0.4 MG CAP PO SCH ×2 (09:36→10:11)
[2022-07-25] MEDS: FINASTERIDE 5 MG TAB PO SCH ×2 (09:36→10:10)
--- NOTE | 2022-07-25 09:38 | Hospitalist Progress Note ---
Date of Service July 25, 2022 Assessment & Plan (1) S/P right colectomy: (2) Ischemic cardiomyopathy: (3) Cervical myelopathy: (4) Chronic deep vein thrombosis (DVT): (5) BPH with obstruction/lower urinary tract symptoms: (6) Diabetes mellitus, type II: (7) Dyslipidemia: (8) CHF (congestive heart failure): (9) CAD (coronary artery disease): (10) JOSE on CPAP: (11) Hypothyroidism: Plan Attending: Dr. Pineda Impression: Is a 61-year-old male that has followed with GI as well as outpatient surgery. 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 A CT scan of the chest abdomen pelvis was completed and patient was referred to Dr. Tejeda of general surgery for evaluation. In review of Dr. Tejeda's office note from 07/06/2022 it was decided the patient would undergo right hemicolectomy to avoid risk of recurrence of cancer or metastatic spread. Patient underwent surgery on 07/21/2022 and the medical service was consulted for medical management postoperatively. At this time, patient is fairly stable. On most issues he was referring us back to the surgical team. Patient has no acute complaints not related to his surgery. Recommendations: 1. S/p right colectomy for colonic mass, C/B ileus Invasive adenocarcinoma of ascending colon Management by primary team, NGT in place with adequate output Serial x-rays N.p.o. -IVF paused as patient has a history of CHF and is clinically volume up with pulmonary vascular congestion. Admitting team discussed DVT prophylaxis. Patient with venous stents but no cardiac stents with prior perioperative DVT on Plavix and apixaban [employer]. while n.p.o. for ileus will start 60 mg Lovenox twice daily for BMI for DVT prevention. Can increase Lovenox to 1mg/kg twice daily today if surgery is so inclined. Resume/transition to apixaban once no longer n.p.o. 2. CAD, CHF Cardiomyopathy ischemic versus nonischemic, past EF ranging 30-45%. Improved to 45-50% with medical therapy. Does not have cardiac stents, but does have venous stenting in 2019 for lower extremity edema following his DVT. Hold atorvastatin 80 mg daily, resume at discharge Hold Bumex 1 mg p.o. every morning, if continuing to build fluid up add Bumex 1 mg IV daily. If dry while n.p.o., continue IVFM @ 80cc/hr 500cc at a time. Plavix 75 mg daily held while n.p.o. Admitting team discussed various options with primary surgical team for both venous stent protection and DVT prophylaxis including rectal aspirin and Lovenox. Continue lovenox as noted above for now Entresto twice daily held while n.p.o. hemodynamically stable Carvedilol 12.5 mg p.o. twice daily held while n.p.o. Beta-anabel converted to metoprolol 5 mg IV every 6 hours while NPO Repeat CXR if patient starts to show hypoxia or shortness of breath. Bumex as above if needed 3. History of DVT provoked by spinal surgery 2019 On DOAC as outpatient Lovenox with transition back to apixaban once milligram p.o. as above 4. Type II DM Glucose checks every 6 hours, AC/at bedtime once no longer n.p.o. Continue insulin SSI, goal BSG 1001 40 - Pharm glycemic consult in place from 1* team 5. History of anemia Without GI bleeding, and with ferritin low normal Follow CBC with Lovenox above, trend daily. 6. Hypothyroidism Home Synthroid to 25 mcg daily converted to 157 mcg IV q3d while n.p.o. due to long half life. Resume oral at 225mcg when diet is advanced 7. BPH with LUTS Tamsulosin 0.4 mg held while n.p.o., Bladder scan every shift for retention, if Retaining Place, [place] Thank you for including us in the care of this patient. The hospital service will sign off at this time. Further management per the surgical team. Please feel free to reconsult or call with specific questions. Admission and Anticipated Discharge Date Admission Date: July 21, 2022 Supervising Physician Co-Signing Physician Notes Attending Attestation - Chart reviewed, care plan d/w MARIE Medina. I agree w/ the galindo components of his documentation. William Pineda MD Subjective Attending: Dr. Pineda Patient seen and examined today in room 250. He is doing relatively well. Pain is generally controlled with analgesia prescribed. NG tube is in place and discharging fluid. Exam is relatively benign. Patient does have hypoactive bowel sounds. No fever or chills. No other complaints from patient. Review of Systems Review of Systems: A total of 10 systems was reviewed and is negative other than as listed in the HPI Physical Exam Physical Exam: GENERAL : No acute distress EYES: No icterus, gaze conjugate NOSE: No evidence of epistaxis. NG tube is in place and secure. It is draining well. MOUTH: No lesions or candidiasis. Tongue is midline. NECK: Supple LUNGS: CTA B/L, no wheezes, rales or rhonchi HEART: Regular, rate controlled ABDOMEN: Soft, NT, ND, BS very quiet and hypoactive. EXTREMITIES: No LE edema, pedal pulses intact NEURO: A&OX3 Results & Data Results & Data ([facility]) Vital Signs (Past 12 Hours) Vital Signs Temp Pulse Pulse Pulse Resp BP BP 07/25/22 07:12 37.2 C 71 20 07/25/22 05:51 77 143/76 H 07/24/22 22:22 69 07/25/22 02:17 37.3 C 73 18 134/79 07/25/22 00:41 74 143/76 H 07/24/22 22:38 37.1 C 69 18 BP Pulse Ox O2 Del Method O2 Flow Rate 07/25/22 07:12 143/79 H 92 Nasal Cannula 1 07/25/22 05:51 07/24/22 22:22 07/25/22 02:17 93 Nasal Cannula 2 07/25/22 00:41 07/24/22 22:38 159/75 H 92 2 Critical Care Results & Data Vital Signs (Past 12 Hours) Vital Signs Temp Pulse Pulse Resp BP BP Pulse Ox 07/25/22 17:38 71 149/72 H 07/25/22 14:28 70 07/25/22 14:48 36.7 C 92 H 18 150/82 H 92 07/25/22 06:02 70 07/25/22 11:48 07/25/22 11:47 37.5 C 82 19 142/81 H 92 07/25/22 07:12 37.2 C 71 20 143/79 H 92 O2 Del Method O2 Flow Rate 07/25/22 17:38 07/25/22 14:28 07/25/22 14:48 Nasal Cannula 2 07/25/22 06:02 07/25/22 11:48 Room Air, Nasal Cannula 2 07/25/22 11:47 Nasal Cannula 2 07/25/22 07:12 Nasal Cannula 1 Lab & Micro Results (Past 24 Hours) RBC 3.40 M/uL (4.63-6.08) L 07/28/22 WBC 11.48 K/ul (4.8-10.8) H 07/28/22 Hgb 9.1 g/dl (14.0-18.0) L 07/28/22 Hct 29.2 % (40.1-51.0) L 07/28/22 MCV 85.9 fL (80.0-100.0) 07/28/22 MCH 26.8 pg (25.0-34.0) 07/28/22 MCHC 31.2 g/dL (32.0-36.0) L 07/28/22 RDW Standard Deviation 48.9 fL (36.4-46.3) H 07/28/22 RDW Coefficient of Variation 15.7 % (11.5-14.5) H 07/28/22 Plt Count 244 K/uL (130-400) 07/28/22 MPV 10.4 fL (9.4-12.4) 07/28/22 Neutrophils (%) (Auto) 66.4 % 07/28/22 Lymphocytes (%) (Auto) 20.3 % 07/28/22 Monocytes # (Auto) 0.84 K/uL (0.24-0.82) H 07/28/22 Eosinophils # (Auto) 0.56 K/uL (0-0.50) H 07/28/22 Immature Granulocyte % (Auto) 0.6 % 07/28/22 Neutrophils # (Auto) 7.62 K/uL (1.4-6.5) H 07/28/22 Lymphocytes # (Auto) 2.33 K/uL (1.2-3.4) 07/28/22 Monocytes # (Auto) 0.84 K/uL (0.24-0.82) H 07/28/22 Eosinophils # (Auto) 0.56 K/uL (0-0.50) H 07/28/22 Basophils # (Auto) 0.06 K/uL (0-0.2) 07/28/22 Immature Granulocyte # (Auto) 0.07 K/uL (0.00-0.02) H 07/28 Na 134 mmol/L (136-145) L 07/28/22 K 3.4 mmol/L (3.5-5.1) L 07/28/22 Cl 100 mmol/L (98-107) 07/28/22 CO2 27 mmol/L (21-32) 07/28/22 Anion Gap 7 (3-11) 07/28/22 BUN 12 mg/dl (6-23) 07/28/22 Creatinine 0.77 mg/dl (0.6-1.4) 07/28/22 Estimated GFR ( Amer) 114.3 ml/min 07/28/22 Estimated GFR (Non-Af Amer) 98.6 ml/min 07/28/22 BUN/Creatinine Ratio 15.6 (10-20) 07/28/22 Glu 80 mg/dl (70-99(Fasting)) 07/28/22 Ca 8.0 mg/dl (8.5-10.1) L 07/28/22 Mg 1.8 mg/dl (1.7-2.4) 07/28/22 05:36 Calcium Level 8.0 mg/dl (8.5-10.1) L 07/28/22 05:36 Diagnostic Findings (Past 24 Hours) Abdomen X-Ray 07/25/22 08:00 ABDOMEN 2 VIEWS HISTORY: nausea/ vomiting, nasogastric tube in place COMPARISON: Abdomen and pelvis CT 06/29/2022. KUB 02/16/2022. FINDINGS: Right-sided skin nikita are new from the prior study. Nasogastric tube terminates in the proximal stomach with the fenestrated line at the gastroesophageal junction. This could be advanced by approximately 5 cm. An aortobiiliac stent graft is again noted. Multiple dilated gas and fluid-filled loops of large and small bowel are seen throughout the abdomen. This favors a postoperative ileus. There are suture material within the right side the abdomen. IMPRESSION: 1. Multiple mildly dilated gas and fluid-filled loops of small and large bowel seen throughout the abdomen. This favors a postoperative ileus. Follow-up recommended. 2. Nasogastric tube terminates in the proximal stomach. This could be advanced by approximately 5 cm. ACT 112: Negative or not required by law. Electronically signed by: Nilesh Chamberlain M.D. 07/25/2022 9:38 AM I & O Totals 24 Hours 07/24/22 07/25/22 07/26/22 06:59 06:59 06:59 Intake Total 4125.0 / 4125.0 870.0 / 870.0 Output Total 3200 / 3200 1850 / 1850 1223 / 1223 Balance 925.0 / 925.0 -980.0 / -980.0 -1223 / -1223 Cumulative 07/06/22 12:04 thru 07/25/22 17:37 Intake Total 89105.0 Output Total 43470 Balance 1815.0 RT Ventilator Mngmt (Last Documented) Ventilator Ordered Settings Respiratory Rate 18 07/25/22 14:48 Ventilator - PT Measurements Respiratory Rate 18 PG Care Time/CCT Total # of Minutes Spent Total Time Spent with Patient: Total time spent is greater than 50% in coordination of care (as documented) at patient's floor/unit and/or counseling patient: Coding Level of Care Code 04054 Subseq Hosp Care Lvl 2 Diagnoses S/P right colectomy Z90.49 Ischemic cardiomyopathy I25.5 Cervical myelopathy G95.9 Chronic deep vein thrombosis (DVT) I82.509 BPH with obstruction/lower urinary tract symptoms N40.1; N13.8 Diabetes mellitus, type II E11.9 Dyslipidemia E78.5 CHF (congestive heart failure) I50.9 CAD (coronary artery disease) I25.10 JOSE on CPAP G47.33; Z99.89 Hypothyroidism E03.9
[2022-07-25] MEDS: NSS + 20MEQ KCL 20 MEQ/1,000 ML BAG IV SCH ×2 (10:15→19:50)
[2022-07-25] MEDS: GABAPENTIN 250 MG/5 ML 470 ML BTL NG SCH ×2 (10:15→20:28)
--- NOTE | 2022-07-25 11:02 | Pharmacy Report ---
Pharmacy Glycemic Sign Off Nt - Date of Service July 25, 2022 - Assessment & Plan ASSESSMENT: * Pharmacy was consulted by Jeannette Carey PA-C, on 07/21/22 for glycemic control and to write orders per [facility] inpatient glycemic control protocol. * Major changes made by pharmacy to antidiabetic regimen include: * Initiating basal and bolus insulin * Patient has received 20 units total in 4 days for adequate glycemic control (18 units Novolog on 07/22 and 2 units Novolog on 07/23 * BSGs ranging 110 - 140 mg/dl * Regimen has only required minor adjustments over the past 48hrs to achieve this level of control * Do not anticipate further changes in patient status that would quickly deteriorate glycemic control (even if patient's diet resumes, believe he will not require basal insulin and bolus coverage will be enough). * Please see recommendations for outpatient antidiabetic regimen below. PLAN FOR INPATIENT GLYCEMIC CONTROL: No changes needed to current regimen. * Continue with no basal insulin * Continue NovoLog per scale ACHS/Q6hrs while NPO * Goal range = 110 - 140 mg/dl * CF = 25 mg/dl/unit * CR = 1 unit for ever 9 g CHO consumed * Pharmacy is signing off of glycemic consult and will no longer be making adjustments to inpatient regimen. Please feel free to re-consult if needed. Thank you.
[2022-07-26] MEDS: INSULIN ASPART PER UNIT SC SCH ×5 (00:36→20:45)
[2022-07-26] MEDS: ONDANSETRON INJ 2 MG/ML 2 ML VIAL IV PRN (05:39)
[2022-07-26] MEDS: NSS + 20MEQ KCL 20 MEQ/1,000 ML BAG IV SCH ×2 (05:44→15:53)
[2022-07-26] MEDS: METOPROLOL TARTRATE 1 MG/ML VIAL IV SCH ×2 (05:54→06:01)
[2022-07-26] MEDS: MoRPHine SULFATE 2 MG/ML CARP IV PRN (05:55)
[2022-07-26 07:14] LABS: Basophils # (auto) 0.05 K/uL (0-0.2); Basophils % (auto) 0.4 %; Eosinophils # (auto) 0.16 K/uL (0-0.50); Eosinophils % (auto) 1.4 %; Immature Granulocytes # (auto) 0.05 K/uL (0.00-0.02); Immature Granulocytes % (auto) 0.4 %; Lymphocytes # (auto) 1.34 K/uL (1.2-3.4); Lymphocytes % (auto) 11.9 %; Mean Corpuscular Hemoglobin 26.8 pg (25.0-34.0); Mean Corpuscular Volume 86.3 fL (80.0-100.0); Mean Platelet Volume 10.2 fL (9.4-12.4); Monocytes # (auto) 0.73 K/uL (0.24-0.82); Monocytes % (auto) 6.5 %; Neutrophils # (auto) 8.95 K/uL (1.4-6.5); Neutrophils % (auto) 79.4 %; Platelet Count 251 K/uL (130-400); RDW Coefficient of Variation 15.9 % (11.5-14.5); RDW Standard Deviation 50.2 fL (36.4-46.3); Red Blood Count 3.36 M/uL (4.63-6.08); White Blood Count 11.28 K/ul (4.8-10.8)
[2022-07-26 07:45] LABS: BUN Creatinine Ratio 22.4 (10-20); Calcium 8.2 mg/dl (8.5-10.1); Creatinine Clr Calc Pharmacy 161.6 ml/min; Est GFR (African American) 109.8 ml/min; Est GFR (Non-African American) 94.7 ml/min; Potassium 3.6 mmol/L (3.5-5.1)
[2022-07-26] MEDS ORDERED: oxyCODONE/ACETAMINOPHEN 5mg/325mg TAB PO PRN (08:32)
[2022-07-26] MEDS: TAMSULOSIN HCL 0.4 MG CAP PO SCH (08:34)
[2022-07-26] MEDS: GABAPENTIN 250 MG/5 ML 470 ML BTL NG SCH (08:34)
[2022-07-26] MEDS: FINASTERIDE 5 MG TAB PO SCH (08:35)
[2022-07-26] MEDS ORDERED: ACETAMINOPHEN 325 MG TAB PO PRN (08:37)
--- NOTE | 2022-07-26 09:11 | Hospitalist Progress Note ---
Date of Service July 26, 2022 Assessment & Plan (1) S/P right colectomy: (2) Ischemic cardiomyopathy: (3) Cervical myelopathy: (4) Chronic deep vein thrombosis (DVT): (5) BPH with obstruction/lower urinary tract symptoms: (6) Diabetes mellitus, type II: (7) Dyslipidemia: (8) CHF (congestive heart failure): (9) CAD (coronary artery disease): (10) JOSE on CPAP: (11) Hypothyroidism: Admission and Anticipated Discharge Date Admission Date: July 21, 2022 Results & Data Results & Data ([facility]) Vital Signs (Past 12 Hours) Vital Signs Temp Pulse Pulse Pulse Resp BP BP 07/26/22 07:17 36.8 C 57 L 18 169/83 H 07/26/22 06:10 48 L 07/26/22 06:01 57 L 147/77 H 07/26/22 05:53 62 147/77 H 07/25/22 22:07 63 07/26/22 03:48 37.1 C 60 18 153/80 H 07/25/22 23:54 63 151/82 H 07/25/22 23:42 37.2 C 63 18 151/82 H Pulse Ox O2 Del Method O2 Flow Rate 07/26/22 07:17 96 Nasal Cannula 2 07/26/22 06:10 07/26/22 06:01 07/26/22 05:53 07/25/22 22:07 07/26/22 03:48 95 2 07/25/22 23:54 07/25/22 23:42 96 2 PG Care Time/CCT Total # of Minutes Spent Total Time Spent with Patient: Total time spent is greater than 50% in coordination of care (as documented) at patient's floor/unit and/or counseling patient: Coding Diagnoses S/P right colectomy Z90.49 Ischemic cardiomyopathy I25.5 Cervical myelopathy G95.9 Chronic deep vein thrombosis (DVT) I82.509 BPH with obstruction/lower urinary tract symptoms N40.1; N13.8 Diabetes mellitus, type II E11.9 Dyslipidemia E78.5 CHF (congestive heart failure) I50.9 CAD (coronary artery disease) I25.10 JOSE on CPAP G47.33; Z99.89 Hypothyroidism E03.9
--- NOTE | 2022-07-26 09:28 | Surgery Progress Note ---
Date of Service July 26, 2022 Assessment & Plan (1) S/P right colectomy: Plan: POD#5 open right hemicolectomy WBC 11, Hbg 9, Cr 0.8 Pt had a couple BMs. Plan to d/c NGT today and start clears Will order PO pain meds as needed D/c Lovenox and start pts home eliquis, plavix, entresto,carvediol.. Pt prefers to keep rosas today If does well with clears will d/c IVF Appreciate hospitalists assistance with patient as above. several bm's yesterday. no nausea. rather insistent NG be removed. abd: soft. less distension. wound looks good will pull ngt and start clears. if he tolerates will d/c IVF later today change PO pain meds. can restart oral anticoagulation Admission and Anticipated Discharge Date Admission Date: July 21, 2022 Subjective Patient doing well. Denies n/v. Reports + bowel function. Says IV morphine a little too strong for him. Wants to keep rosas in today yet Physical Exam Physical Exam: awake/alert Gastrointestinal (Abdomen): Inspection/Auscultation: + abdomen distended (some improvement from yesterday) and + abdominal surgical incision (c/d/i) Percussion/Palpation: abdomen soft Results & Data ([facility]) Vital Signs (Past 12 Hours) Vital Signs Temp Pulse Pulse Pulse Resp BP BP 07/26/22 07:17 36.8 C 57 L 18 169/83 H 07/26/22 06:10 48 L 07/26/22 06:01 57 L 147/77 H 07/26/22 05:53 62 147/77 H 07/25/22 22:07 63 07/26/22 03:48 37.1 C 60 18 153/80 H 07/25/22 23:54 63 151/82 H 07/25/22 23:42 37.2 C 63 18 151/82 H Pulse Ox O2 Del Method O2 Flow Rate 07/26/22 07:17 96 Nasal Cannula 2 07/26/22 06:10 07/26/22 06:01 07/26/22 05:53 07/25/22 22:07 07/26/22 03:48 95 2 07/25/22 23:54 07/25/22 23:42 96 2 PG Care Time/CCT Total # of Minutes Spent Total Time Spent with Patient: Total time spent is greater than 50% in coordination of care (as documented) at patient's floor/unit and/or counseling patient: Coding Level of Care Code None Diagnoses S/P right colectomy Z90.49
[2022-07-26] MEDS ORDERED: GABAPENTIN 250 MG/5 ML 470 ML BTL PO SCH (09:45)
[2022-07-26] MEDS: VALSARTAN/SACUBITRIL 26/24MG TAB PO SCH ×2 (10:01→20:26)
[2022-07-26] MEDS: APIXABAN 5 MG TABLET PO SCH ×2 (10:02→20:23)
[2022-07-26] MEDS: CLOPIDOGREL BISULFATE 75 MG TAB PO SCH (10:02)
[2022-07-26] MEDS: carvediloL 12.5 MG TAB PO SCH ×2 (11:16→20:24)
[2022-07-26] MEDS: oxyCODONE/ACETAMINOPHEN 5mg/325mg TAB PO PRN ×3 (11:50→22:55)
[2022-07-26] MEDS: CALCIUM CARBONATE 500 MG CHEWABLE TAB PO PRN (15:58)
[2022-07-26] MEDS: GABAPENTIN 300 MG CAP PO SCH (20:24)
[2022-07-26] MEDS ORDERED: CALCIUM CARBONATE 500 MG CHEWABLE TAB PO ONE (22:13)
[2022-07-27] MEDS: NSS + 20MEQ KCL 20 MEQ/1,000 ML BAG IV SCH (01:23)
--- NOTE | 2022-07-27 02:10 | Communication Note ---
Date of Service: July 27, 2022 medicine had signed off 07/25 notified by [facility]dc coreg held this evening per protocol for bradycardia down to 38-39. will check k and mag. checking ecg. will place hold on coreg formally and have primary team restart when appropriate labs: ecg: reviewed. sinus jose luis. [place] 190s, unchanged. inferior lead new t wave inversions check trop. consider repeat ecg later in day because of artifact / poor quality discussed w/ dayshift hospitalist
[2022-07-27 02:37] LABS: Basophils # (auto) 0.04 K/uL (0-0.2); Basophils % (auto) 0.4 %; Eosinophils # (auto) 0.44 K/uL (0-0.50); Eosinophils % (auto) 4.1 %; Hematocrit (blood only) 27.3 % (40.1-51.0); Hemoglobin 8.4 g/dl (14.0-18.0); Immature Granulocytes # (auto) 0.03 K/uL (0.00-0.02); Immature Granulocytes % (auto) 0.3 %; Lymphocytes # (auto) 2.39 K/uL (1.2-3.4); Lymphocytes % (auto) 22.4 %; Mean Corpuscular Hemoglobin 26.8 pg (25.0-34.0); Mean Corpuscular Hgb Conc 30.8 g/dL (32.0-36.0); Mean Corpuscular Volume 87.2 fL (80.0-100.0); Mean Platelet Volume 9.9 fL (9.4-12.4); Monocytes % (auto) 7.5 %; Neutrophils # (auto) 6.96 K/uL (1.4-6.5); Neutrophils % (auto) 65.3 %; Platelet Count 233 K/uL (130-400); RDW Standard Deviation 50.8 fL (36.4-46.3); Red Blood Count 3.13 M/uL (4.63-6.08); White Blood Count 10.66 K/ul (4.8-10.8)
[2022-07-27 03:01] LABS: BUN Creatinine Ratio 22.5 (10-20); Calcium 7.9 mg/dl (8.5-10.1); Creatinine Clr Calc Pharmacy 171.7 ml/min; Est GFR (African American) 112.5 ml/min; Est GFR (Non-African American) 97.1 ml/min; Magnesium 1.9 mg/dl (1.7-2.4); Potassium 3.7 mmol/L (3.5-5.1)
[2022-07-27 03:24] LABS: Troponin I High Sensitivity 20.7 pg/ml (0-20)
[2022-07-27] MEDS: oxyCODONE/ACETAMINOPHEN 5mg/325mg TAB PO PRN ×3 (05:45→21:20)
[2022-07-27] MEDS: LEVOTHYROXINE SODIUM 25 MCG TABLET PO SCH (05:46)
[2022-07-27] MEDS: LEVOTHYROXINE SODIUM 200 MCG TABLET PO SCH (05:46)
--- NOTE | 2022-07-27 08:01 | Hospitalist Progress Note ---
Date of Service July 27, 2022 Assessment & Plan (1) S/P right colectomy: Plan: 61-year-old male that has followed with GI as well as outpatient surgery. 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 A CT scan of the chest abdomen pelvis was completed and patient was referred to Dr. Tejeda of general surgery for evaluation. In review of Dr. Tejeda's office note from 07/06/2022 it was decided the patient would undergo right hemicolectomy to avoid risk of recurrence of cancer or metastatic spread. Patient underwent surgery on 07/21/2022 and the medical service was consulted for medical management postoperatively. Colonic Mass POD#6 s/p open RIGHT hemicolectomy with enterolysis with Dr Tejeda Pathology with moderately differentiated infiltrative adenocarcinoma , 10/12 lymph nodes with metastatic adenocarcinoma --> discussed with patient/surgery, and assisting in arranging f/u Dr Dodson/new appointment. Prior CT Chest in June negative for metastatic disease. Rec'd adding CEA to labs for follow up - done. No further NGT Diet advanced to full liquids (moving his bowels) Pain control, antiemetics prn IVF paused AM 07/27 given congestion prior and hx CHF, --> had been restarted AM 07/25 @ 100cc/hr CXR obtained given hypoxia this AM/overnight, evidence for congestion IVF DISCONTINUED Lasix 20mg PO x 1 ordered initially, however patient on bumex 1mg daily and this was changed to bumex. 1mg PO x 1 now, then resume daily. Additional dose as needed Also ordered CPAP HS -- patient has own in room but had been unable to tolerate in days past with NGT Checked iron studies given hgb 8.4, no bleeding reported but appears baseline anemia over past several years --> iron studies with iron 16, trans % sat low at 7% --> Venofer 200mg IV x 1 today, repeat in AM. DVT prophylaxis -- had been placed on lovenox BID while NPO for ileus (veneous stents) --> resumed eliquis BID/plavix 07/26 Per surgery, planning for d/c tomorrow vs Monday (2) Colonic mass: (3) Colon adenocarcinoma: Plan: per path CEA level added to labs, arranging outpt f/u heme/onc (4) Anemia: Plan: anemia appears chronic in nature, without kaylan bleeding likely secondary to malignancy as outlined above prior ferritin 30.6, unchanged on repeat w/ iron studies which show iron low at 16, trans % sat 7 Venofer IV x 1 today, repeat in AM Follow CBC (5) Ischemic cardiomyopathy: Plan: Cardiomyopathy ischemic versus nonischemic, past EF ranging 30-45%. Improved to 45-50% with medical therapy. Does not have cardiac stents, but does have venous stenting in 2019 for lower extremity edema following his DVT. Held atorvastatin 80 mg daily, resume at discharge -- can resume for tomorrow Plavix/Eliquis resumed 07/26 (prior on lovenox) Continue Entresto BID Trop 20.6 checked w/ bradycardia, however was sleeping, no CP reported and suspect demand from anemia and no need for repeat CXR 07/27 w/ congestion -- on room air during encounter but diminished in the bases Previously had bumex 1mg on hold--> -- as given continuous IVF as above, since discontinued 07/27 will resume bumex 1mg x 1 now, resume daily dosing for AM. Additional dose as needed Carvedilol 12.5mg BID -- WITH HOLD PARAMETERS -- rates to 30-40s while sleeping overnight. Given tums 1500mg overnight. --> resumed for this evening with hold parameters. Patient also to wear his CPAP tonight ?if need to reduce dose to 6.25mg BID to prevent further bradycardia once resumed (6) CHF (congestive heart failure): Plan: as outlined under CAD -- resuming bumex 1mg x1 now, daily. additional doses as needed (7) CAD (coronary artery disease): (8) Chronic deep vein thrombosis (DVT): Plan: History of DVT provoked by spinal surgery 2019 On DOAC as outpatient Lovenox with transition back to apixaban/plavix as outlined (9) BPH with obstruction/lower urinary tract symptoms: Plan: Tamsulosin 0.4 mg -- resumed HOPE IS IN PLACE --> would rec d/c prior to discharge to ensure no issues with voiding consider adding proscar bumex resumed as above (10) Diabetes mellitus, type II: Plan: Last a1c 7.0 -- diet controlled outpatient not on medications BSGs acceptable while inpatient, pharmacy had been previously consulted F/u outpatient with PCP, consider starting metformin 500mg daily/titrate outpatient (11) JOSE on CPAP: Plan: CPAP for tonight -- patient has in room and agreeable to use tonight now that doesn't have NGT any longer (12) Hypothyroidism: Plan: TSH wnl 0.99 in March 2022 Home Synthroid to 25 mcg daily converted to 157 mcg IV q3d while n.p.o. due to long half life. Resumed oral at 225mcg as diet advanced Plan Thank you for including us in the care of this patient. The hospital service will follow along for labs in AM. Please call with any questions/concerns Admission and Anticipated Discharge Date Admission Date: July 21, 2022 Supervising Physician Co-Signing Physician Notes MARIE Supervision Note: I did not personally see or examine the patient today, but I verified all galindo points of MARIE Perdomo's assessment and plan with the following exceptions/additions: None Subjective eval this afternoon pain controlled no nausea/vomiting moving his bowels diet advanced by surgery, patient is hopeful for discharge tomorrow surgery discussed pathology this morning. ok with local follow up with Dr Dodson -- asking CM to arrange. Also messaged Dr Dodson to see about an additional studies to be ordered prior to discharge. Review of Systems Review of Systems: All systems reviewed & are unremarkable except as noted in HPI & below Physical Exam Physical Exam: GENERAL: WD/WN obese male laying in bed, NAD HEENT: head normocephalic, atraumatic, mmm, trachea midline without deviation, NO NGT Resp: CTAB, diminished in the bases, no w/c, on room air CV: bradycardic (rate 52bpm), no m/r/g, trace pedal edema, calves nontender GI: +BS, obese, +distended, soft, appropriately tender to surgical sites, nikita inplace without erythema/drainage : hope with clear yellow urine draining MSK/Neuro: no focal deficit, follows commands, no slurred speech/facial droop Psych: AOx3, pleasant and cooperative Skin: warm, dry Results & Data Results & Data ([facility]) Vital Signs (Past 12 Hours) Vital Signs Temp Pulse Pulse Pulse Resp BP Pulse Ox 07/27/22 07:13 36.7 C 53 L 18 137/69 87 L 07/27/22 03:08 36.9 C 45 L 18 137/71 92 07/26/22 22:16 47 L 07/26/22 23:04 36.6 C 48 L 18 136/77 93 07/26/22 20:20 53 L 18 146/74 H 93 O2 Del Method 07/27/22 07:13 Room Air 07/27/22 03:08 Room Air 07/26/22 22:16 07/26/22 23:04 Room Air 07/26/22 20:20 Room Air Laboratory Results 07/27/22 07/27/22 07/27/22 Range/Units 13:00 11:49 07:44 WBC (4.8-10.8) K/ul RBC (4.63-6.08) M/uL Hgb (14.0-18.0) g/dl Hct (40.1-51.0) % MCV (80.0-100.0) fL MCH (25.0-34.0) pg MCHC (32.0-36.0) g/dL RDW Std Deviation (36.4-46.3) fL RDW Coeff of Jason (11.5-14.5) % Plt Count (130-400) K/uL MPV (9.4-12.4) fL Immature Gran % (Auto) % Neut % (Auto) % Lymph % (Auto) % [place] % (Auto) % Eos % (Auto) % Baso % (Auto) % Neut # (Auto) (1.4-6.5) K/uL Lymph # (Auto) (1.2-3.4) K/uL [place] # (Auto) (0.24-0.82) K/uL Eos # (Auto) (0-0.50) K/uL Baso # (Auto) (0-0.2) K/uL Immature Gran # (Auto) (0.00-0.02) K/uL Sodium (136-145) mmol/L Potassium (3.5-5.1) mmol/L Chloride (98-107) mmol/L Carbon Dioxide (21-32) mmol/L Anion Gap (3-11) BUN (6-23) mg/dl Creatinine (0.6-1.4) mg/dl Est Cr Clr Drug Dosing ml/min Est GFR ( Amer) ml/min Est GFR (Non-Af Amer) ml/min BUN/Creatinine Ratio (10-20) Glucose (70-99(Fasting)) mg/dl POC Glucose 84 81 (70-99) mg/dl Calcium (8.5-10.1) mg/dl Magnesium (1.7-2.4) mg/dl Iron (35-175) mcg/dl TIBC (250-450) mcg/dl Unsaturated IBC (155-355) mcg/dl Transferrin % Sat (20-50) % Ferritin (8-388) ng/ml Troponin I High Sens (0-20) pg/ml Carcinoembryonic Ag 6.9 H (0-2.5) ng/ml 07/27/22 07/27/22 07/27/22 Range/Units 02:23 02:23 02:23 WBC 10.66 (4.8-10.8) K/ul RBC 3.13 L (4.63-6.08) M/uL Hgb 8.4 L (14.0-18.0) g/dl Hct 27.3 L (40.1-51.0) % MCV 87.2 (80.0-100.0) fL MCH 26.8 (25.0-34.0) pg MCHC 30.8 L (32.0-36.0) g/dL RDW Std Deviation 50.8 H (36.4-46.3) fL RDW Coeff of Jason 16.0 H (11.5-14.5) % Plt Count 233 (130-400) K/uL MPV 9.9 (9.4-12.4) fL Immature Gran % (Auto) 0.3 % Neut % (Auto) 65.3 % Lymph % (Auto) 22.4 % [place] % (Auto) 7.5 % Eos % (Auto) 4.1 % Baso % (Auto) 0.4 % Neut # (Auto) 6.96 H (1.4-6.5) K/uL Lymph # (Auto) 2.39 (1.2-3.4) K/uL [place] # (Auto) 0.80 (0.24-0.82) K/uL Eos # (Auto) 0.44 (0-0.50) K/uL Baso # (Auto) 0.04 (0-0.2) K/uL Immature Gran # (Auto) 0.03 H (0.00-0.02) K/uL Sodium 138 (136-145) mmol/L Potassium 3.7 (3.5-5.1) mmol/L Chloride 104 (98-107) mmol/L Carbon Dioxide 28 (21-32) mmol/L Anion Gap 6 (3-11) BUN 18 (6-23) mg/dl Creatinine 0.80 (0.6-1.4) mg/dl Est Cr Clr Drug Dosing 171.7 ml/min Est GFR ( Amer) 112.5 ml/min Est GFR (Non-Af Amer) 97.1 ml/min BUN/Creatinine Ratio 22.5 H (10-20) Glucose 82 (70-99(Fasting)) mg/dl POC Glucose (70-99) mg/dl Calcium 7.9 L (8.5-10.1) mg/dl Magnesium 1.9 (1.7-2.4) mg/dl Iron 16 L (35-175) mcg/dl TIBC 220 L (250-450) mcg/dl Unsaturated IBC 204 (155-355) mcg/dl Transferrin % Sat 7 L (20-50) % Ferritin 39.6 (8-388) ng/ml Troponin I High Sens 20.7 H (0-20) pg/ml Carcinoembryonic Ag (0-2.5) ng/ml 07/26/22 07/26/22 Range/Units 20:19 16:38 WBC (4.8-10.8) K/ul RBC (4.63-6.08) M/uL Hgb (14.0-18.0) g/dl Hct (40.1-51.0) % MCV (80.0-100.0) fL MCH (25.0-34.0) pg MCHC (32.0-36.0) g/dL RDW Std Deviation (36.4-46.3) fL RDW Coeff of Jason (11.5-14.5) % Plt Count (130-400) K/uL MPV (9.4-12.4) fL Immature Gran % (Auto) % Neut % (Auto) % Lymph % (Auto) % [place] % (Auto) % Eos % (Auto) % Baso % (Auto) % Neut # (Auto) (1.4-6.5) K/uL Lymph # (Auto) (1.2-3.4) K/uL [place] # (Auto) (0.24-0.82) K/uL Eos # (Auto) (0-0.50) K/uL Baso # (Auto) (0-0.2) K/uL Immature Gran # (Auto) (0.00-0.02) K/uL Sodium (136-145) mmol/L Potassium (3.5-5.1) mmol/L Chloride (98-107) mmol/L Carbon Dioxide (21-32) mmol/L Anion Gap (3-11) BUN (6-23) mg/dl Creatinine (0.6-1.4) mg/dl Est Cr Clr Drug Dosing ml/min Est GFR ( Amer) ml/min Est GFR (Non-Af Amer) ml/min BUN/Creatinine Ratio (10-20) Glucose (70-99(Fasting)) mg/dl POC Glucose 85 91 (70-99) mg/dl Calcium (8.5-10.1) mg/dl Magnesium (1.7-2.4) mg/dl Iron (35-175) mcg/dl TIBC (250-450) mcg/dl Unsaturated IBC (155-355) mcg/dl Transferrin % Sat (20-50) % Ferritin (8-388) ng/ml Troponin I High Sens (0-20) pg/ml Carcinoembryonic Ag (0-2.5) ng/ml Diagnostic Findings Chest X-Ray 07/24/22 05:35 XR chest 1V portable CLINICAL HISTORY: NG Tube Placement COMPARISON STUDY: Chest CT June 29, 2022. FINDINGS: There is no pneumothorax. No pleural effusion is identified Cardiomegaly is noted. There is pulmonary vascular congestion without evidence for overt pulmonary edema. Bibasilar opacities are noted. The tip of the nasogastric tube is partially obscured but likely projects over the proximal stomach. IMPRESSION: 1. Tip of nasogastric tube partially obscured but likely projects over the proximal stomach. 2. Cardiomegaly with pulmonary vascular congestion. 3. Bibasilar opacities which favor atelectasis. ACT 112: Negative or not required by law. Electronically signed by: Pedro Sharpe M.D. 07/24/2022 6:43 AM Abdomen X-Ray 07/25/22 08:00 ABDOMEN 2 VIEWS HISTORY: nausea/ vomiting, nasogastric tube in place COMPARISON: Abdomen and pelvis CT 06/29/2022. KUB 02/16/2022. FINDINGS: Right-sided skin nikita are new from the prior study. Nasogastric tube terminates in the proximal stomach with the fenestrated line at the gastroesophageal junction. This could be advanced by approximately 5 cm. An aortobiiliac stent graft is again noted. Multiple dilated gas and fluid-filled loops of large and small bowel are seen throughout the abdomen. This favors a postoperative ileus. There are suture material within the right side the abdomen. IMPRESSION: 1. Multiple mildly dilated gas and fluid-filled loops of small and large bowel seen throughout the abdomen. This favors a postoperative ileus. Follow-up recommended. 2. Nasogastric tube terminates in the proximal stomach. This could be advanced by approximately 5 cm. ACT 112: Negative or not required by law. Electronically signed by: Nilesh Chamberlain M.D. 07/25/2022 9:38 AM Chest X-Ray 07/27/22 07:56 XR chest 1V portable CLINICAL HISTORY: hypoxia TECHNIQUE: Single frontal radiograph of the chest was obtained. Comparison: Comparison is made to chest radiograph 07/24/2022 FINDINGS: No lines and tubes are seen. Cardiomegaly is noted. Prominence and cephalization of the vasculature is seen. No evidence of pleural effusion or pneumothorax. IMPRESSION: Mild pulmonary edema. Cardiomegaly is noted. ACT 112: Negative or not required by law. Electronically signed by: Winston Bailey M.D. 07/27/2022 2:39 PM PG Care Time/CCT Total # of Minutes Spent Total Time Spent with Patient: Total time spent is greater than 50% in coordination of care (as documented) at patient's floor/unit and/or counseling patient: Coding Level of Care Code 80335 Subseq Hosp Care Lvl 3 Diagnoses S/P right colectomy Z90.49 Colonic mass K63.89 Colon adenocarcinoma C18.9 Anemia D64.9 Ischemic cardiomyopathy I25.5 CHF (congestive heart failure) I50.9 CAD (coronary artery disease) I25.10 Chronic deep vein thrombosis (DVT) I82.509 BPH with obstruction/lower urinary tract symptoms N40.1; N13.8 Diabetes mellitus, type II E11.9 JOSE on CPAP G47.33; Z99.89 Hypothyroidism E03.9
[2022-07-27] MEDS: CLOPIDOGREL BISULFATE 75 MG TAB PO SCH (08:43)
[2022-07-27] MEDS: FINASTERIDE 5 MG TAB PO SCH (08:44)
[2022-07-27] MEDS: GABAPENTIN 300 MG CAP PO SCH ×2 (08:44→21:21)
[2022-07-27] MEDS: TAMSULOSIN HCL 0.4 MG CAP PO SCH (08:44)
[2022-07-27] MEDS: APIXABAN 5 MG TABLET PO SCH ×2 (08:47→21:22)
[2022-07-27] MEDS ORDERED: LEVOTHYROXINE SODIUM IV SCH (09:00)
[2022-07-27] MEDS: INSULIN ASPART PER UNIT SC SCH ×4 (09:26→21:22)
[2022-07-27 09:43] LABS: Ferritin 39.6 ng/ml (8-388)
[2022-07-27] MEDS: VALSARTAN/SACUBITRIL 26/24MG TAB PO SCH ×2 (10:16→21:23)
--- NOTE | 2022-07-27 11:11 | Surgery Progress Note ---
Date of Service July 27, 2022 Assessment & Plan (1) S/P right colectomy: Plan: He is doing very well. We will advance him to full liquids and DC his IV fluids. We will also DC his Steele. I did discuss his pathology report and the implications with him. If he continues to do well there is potential for discharge tomorrow or Monday. Admission and Anticipated Discharge Date Admission Date: July 21, 2022 Subjective Patient seen. Feeling well. Denies nausea or vomiting. He had another bowel movement. He is tolerating clear liquids without issue Physical Exam Physical Exam: Alert. No acute distress Abdomen is soft with expected incisional tenderness. No sign of infection Results & Data ([facility]) Vital Signs (Past 12 Hours) Vital Signs Temp Pulse Pulse Pulse Resp BP Pulse Ox 07/27/22 06:12 44 L 07/27/22 10:59 36.7 C 43 L 18 154/86 H 92 07/27/22 10:31 07/27/22 07:13 36.7 C 53 L 18 137/69 87 L 07/27/22 03:08 36.9 C 45 L 18 137/71 92 Pulse Ox O2 Del Method O2 Del Method 07/27/22 06:12 07/27/22 10:59 Room Air 07/27/22 10:31 93 Room Air 07/27/22 07:13 Room Air 07/27/22 03:08 Room Air PG Care Time/CCT Total # of Minutes Spent Total Time Spent with Patient: Total time spent is greater than 50% in coordination of care (as documented) at patient's floor/unit and/or counseling patient: Coding Level of Care Code None Diagnoses S/P right colectomy Z90.49
[2022-07-27] MEDS ORDERED: IRON SUCROSE 200 MG in 0.9 % SODIUM CHLORIDE 100 ML IV ONE (11:15)
--- NOTE | 2022-07-27 14:03 | Electrocardiogram Report ---
Test Reason : Blood Pressure : / mmHG Vent. Rate : 048 BPM Atrial Rate : 048 BPM P-R Int : 194 ms QRS Dur : 090 ms QT Int : 484 ms P-R-T Axes : 060 -42 -09 degrees QTc Int : 432 ms Poor data quality, interpretation may be adversely affected Sinus bradycardia Left axis deviation possible Inferior infarct , age undetermined Abnormal ECG When compared with ECG of 06-JUL-2022 11:46, QRS duration has decreased ST now depressed in Inferior leads T wave inversion now evident in Inferior leads Confirmed by Kg Goddard ([id number]) on 07/27/2022 2:03:05 PM Referred By: Tavares Tejeda Confirmed By:Prince Goddard
--- NOTE | 2022-07-27 14:40 | XRay Report ---
XR chest 1V portable CLINICAL HISTORY: hypoxia TECHNIQUE: Single frontal radiograph of the chest was obtained. Comparison: Comparison is made to chest radiograph 07/24/2022 FINDINGS: No lines and tubes are seen. Cardiomegaly is noted. Prominence and cephalization of the vasculature i s seen. No evidence of pleural effusion or pneumothorax. IMPRESSION: Mild pulmonary edema. Cardiomegaly is noted. ACT 112: Negative or not required by law. Electronically signed by: Winston Bailey M.D. 07/27/2022 2:39 PM
[2022-07-27] MEDS ORDERED: FUROSEMIDE 20 MG TAB PO ONE (16:30)
[2022-07-27] MEDS ORDERED: POTASSIUM CHLORIDE CRTAB 20 MEQ TABCR PO STA (16:33)
[2022-07-27] MEDS: BUMETANIDE 1 MG TAB PO SCH (17:17)
[2022-07-27] MEDS: carvediloL 12.5 MG TAB PO SCH (21:24)
[2022-07-28] MEDS: oxyCODONE/ACETAMINOPHEN 5mg/325mg TAB PO PRN ×2 (02:37→12:40)
[2022-07-28] MEDS: LEVOTHYROXINE SODIUM 25 MCG TABLET PO SCH (06:20)
[2022-07-28] MEDS: LEVOTHYROXINE SODIUM 200 MCG TABLET PO SCH (06:20)
[2022-07-28 06:59] LABS: Basophils # (auto) 0.06 K/uL (0-0.2); Basophils % (auto) 0.5 %; Eosinophils # (auto) 0.56 K/uL (0-0.50); Eosinophils % (auto) 4.9 %; Hematocrit (blood only) 29.2 % (40.1-51.0); Hemoglobin 9.1 g/dl (14.0-18.0); Immature Granulocytes # (auto) 0.07 K/uL (0.00-0.02); Immature Granulocytes % (auto) 0.6 %; Lymphocytes # (auto) 2.33 K/uL (1.2-3.4); Lymphocytes % (auto) 20.3 %; Mean Corpuscular Hemoglobin 26.8 pg (25.0-34.0); Mean Corpuscular Hgb Conc 31.2 g/dL (32.0-36.0); Mean Corpuscular Volume 85.9 fL (80.0-100.0); Mean Platelet Volume 10.4 fL (9.4-12.4); Monocytes # (auto) 0.84 K/uL (0.24-0.82); Monocytes % (auto) 7.3 %; Neutrophils # (auto) 7.62 K/uL (1.4-6.5); Neutrophils % (auto) 66.4 %; Platelet Count 244 K/uL (130-400); RDW Coefficient of Variation 15.7 % (11.5-14.5); RDW Standard Deviation 48.9 fL (36.4-46.3); White Blood Count 11.48 K/ul (4.8-10.8)
[2022-07-28 07:34] LABS: BUN Creatinine Ratio 15.6 (10-20); Creatinine Clr Calc Pharmacy 176.6 ml/min; Est GFR (African American) 114.3 ml/min; Est GFR (Non-African American) 98.6 ml/min; Potassium 3.4 mmol/L (3.5-5.1)
[2022-07-28] MEDS ORDERED: POTASSIUM CHLORIDE CRTAB 20 MEQ TABCR PO STA (07:55)
[2022-07-28] MEDS: FINASTERIDE 5 MG TAB PO SCH (07:59)
[2022-07-28] MEDS: CLOPIDOGREL BISULFATE 75 MG TAB PO SCH (07:59)
--- NOTE | 2022-07-28 07:59 | Hospitalist Progress Note ---
Date of Service July 28, 2022 Assessment & Plan (1) S/P right colectomy: Plan: 61-year-old male that has followed with GI as well as outpatient surgery. 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 A CT scan of the chest abdomen pelvis was completed and patient was referred to Dr. Tejeda of general surgery for evaluation. In review of Dr. Tejeda's office note from 07/06/2022 it was decided the patient would undergo right hemicolectomy to avoid risk of recurrence of cancer or metastatic spread. Patient underwent surgery on 07/21/2022 and the medical service was consulted for medical management postoperatively. Colonic Mass POD#7 s/p open RIGHT hemicolectomy with enterolysis with Dr Tejeda Pathology with moderately differentiated infiltrative adenocarcinoma , 10/12 lymph nodes with metastatic adenocarcinoma --> discussed with patient/surgery, and assisting in arranging f/u Dr Dodson/new appointment. Prior CT Chest in June negative for metastatic disease. Rec'd adding CEA to labs for follow up - elevated at 6.9 No further NGT Diet advanced to low fiber, tolerating and moving his bowels Pain control, antiemetics prn IVF DISCONTINUED AM 07/27 given congestion prior and hx CHF ( had been restarted AM 07/25 @ 100cc/hr, bumex not resumed) CXR w/ evidence of congestion, bumex 1mg last evening, resumed his usual 1mg daily however patient refused dose this morning as was urinating all night. discussed taking once home this evening. he used to be on 1mg in AM and 0.5mg additional bumex but this had been too much in the past. Weights up to 171.9kg on 07/26, down to 168.9kg prior to admit but appears dry weight possibly slightly less --> discussed to take dose of bumex once home tonight (with his PO KCL) and for next two days to continue the bumex 1mg daily in AM and 0.5mg in evening with his potassium and monitor weights daily. Agreed to plan Patient did have 7 beat run atachycardia AM 07/28, asymptomatic. His BB had been held for several days w/ HR in 40-50s, asked RN to administer. Rates in 60-70s this afternoon Anemia -- Checked iron studies given hgb 8.4, no bleeding reported but appears baseline anemia over past several years --> iron studies with iron 16, trans % sat low at 7% --> Venofer 200mg IV x 1 on 07/27, additional 200mg IV prior to discharge. Hgb improved, also volume overloaded as above DVT prophylaxis -- had been placed on lovenox BID while NPO for ileus (veneous stents) --> resumed eliquis BID/plavix 07/26 Per surgery, planning for d/c this afternoon (2) Colonic mass: (3) Colon adenocarcinoma: Plan: per path CEA level added to labs-- elevated to 6.9 (of note, obtained after mass removed, no prior values in system) Arranging outpt f/u heme/onc -- they are to call patient with appointment once they have reviewed information (4) Anemia: Plan: anemia appears chronic in nature, without kaylan bleeding likely secondary to malignancy as outlined above prior ferritin 30.6, unchanged on repeat w/ iron studies which show iron low at 16, trans % sat 7 Venofer IV x 2 doses inpatient --> f/u heme/onc outpatient hgb stable, no bleeding reported (5) Ischemic cardiomyopathy: Plan: Cardiomyopathy ischemic versus nonischemic, past EF ranging 30-45%. Improved to 45-50% with medical therapy. Does not have cardiac stents, but does have venous stenting in 2019 for lower extremity edema following his DVT. Held atorvastatin 80 mg daily, resume at discharge -- can resume for tomorrow Plavix/Eliquis resumed 07/26 (prior on lovenox) Continue Entresto BID Trop 20.6 checked w/ bradycardia, however was sleeping, no CP reported and suspect demand from anemia and no need for repeat CXR 07/27 w/ congestion -- on room air during encounter but diminished in the bases Previously had bumex 1mg on hold--> -- as given continuous IVF as above, since discontinued 07/27 and resumed bumex 1mg x 1 now PM 07/27, resumed daily -- see above Carvedilol 12.5mg BID -- WITH HOLD PARAMETERS -- rates to 30-40s while sleeping [id number] Had missed several doses, had episode of atrial tachycardia as above, asymptomatic, RN administered dose. No further issues To continue BB at home, consider reducing dose if having symptoms with lower HRs CPAP able to be used last two nights, prior not able to due to NGT in place (6) CHF (congestive heart failure): Plan: as outlined under CAD -- resumed bumex, additional dosing/monitoring of weights at home for next 2 days (7) CAD (coronary artery disease): (8) Chronic deep vein thrombosis (DVT): Plan: History of DVT provoked by spinal surgery 2020 On DOAC as outpatient Lovenox with transition back to apixaban/plavix as outlined (9) BPH with obstruction/lower urinary tract symptoms: Plan: Tamsulosin 0.4 mg -- resumed, proscar rosas placed, since removed and making lots of money since having bumex resolved (10) Diabetes mellitus, type II: Plan: Last a1c 7.0 -- diet controlled outpatient not on medications BSGs acceptable while inpatient, pharmacy had been previously consulted F/u outpatient with PCP, consider starting metformin 500mg daily/titrate outpatient (11) JOSE on CPAP: Plan: CPAP ordered and using his home machine since NGT removed rec continued compliance (12) Hypothyroidism: Plan: TSH wnl 0.99 in March 2022 Home Synthroid to 25 mcg daily converted to 157 mcg IV q3d while n.p.o. due to long half life, then resumed usual synthroid 225mcg daily Plan patient for discharge this afternoon per primary service outpatient f/u heme-oncology continue bumex/additional 0.5mg dose for next 2 days/monitoring of weights at home hospitalist service will sign off please call with any questions/concerns Admission and Anticipated Discharge Date Admission Date: July 21, 2022 Supervising Physician Co-Signing Physician Notes MARIE Supervision Note: I did not personally see or examine the patient today, but I verified all galindo points of MARIE Perdomo's assessment and plan with the following exceptions/additions: None Subjective Patient evaluated this morning. Doing well, tolerating diet, continuing to move his bowels. Discussed bumex, he got a dose last evening after rosas removed and was up in the bathroom all night. Discussed would take dose this evening and he was previously on 1mg and 0.5mg dosing of bumex but that was too much. Discussed taking his dose tonight and then would take 1mg tomorrow morning and 0.5mg in evening for next 2 days with K supplementation and monitoring weights. 7 beat run of atrial tachycardia, asymptomatic. Patient jokingly said there was a commercial for [employer] on with real food and he got excited, but in all seriousness recommended to continue his BB at discharge. Planning for d/c this afternoon. Review of Systems Review of Systems: All systems reviewed & are unremarkable except as noted in HPI & below Physical Exam Physical Exam: GENERAL: WD/WN obese male laying in bed, NAD HEENT: head normocephalic, atraumatic, mmm, trachea midline without deviation, NO NGT Resp: CTAB, diminished in the bases, no w/c, on room air CV: RRR (rate 64bpm), no m/r/g, trace pedal edema, calves nontender GI: +BS, obese, +distended, soft, appropriately tender to surgical sites, nikita in place without erythema/drainage : NO further rosas MSK/Neuro: no focal deficit, follows commands, no slurred speech/facial droop Psych: AOx3, pleasant and cooperative Skin: warm, dry Results & Data Results & Data ([facility]) Vital Signs (Past 12 Hours) Vital Signs Temp Pulse Pulse Resp BP Pulse Ox O2 Del Method 07/28/22 07:00 55 L 07/27/22 20:00 CPAP 07/27/22 22:14 54 L 07/28/22 03:03 36.3 C L 61 18 145/86 H 97 Room Air 07/27/22 23:18 36.7 C 58 L 16 146/87 H 92 Room Air Laboratory Results 07/28/22 07/28/22 07/28/22 Range/Units 11:51 07:41 05:36 WBC (4.8-10.8) K/ul RBC (4.63-6.08) M/uL Hgb (14.0-18.0) g/dl Hct (40.1-51.0) % MCV (80.0-100.0) fL MCH (25.0-34.0) pg MCHC (32.0-36.0) g/dL RDW Std Deviation (36.4-46.3) fL RDW Coeff of Jason (11.5-14.5) % Plt Count (130-400) K/uL MPV (9.4-12.4) fL Immature Gran % (Auto) % Neut % (Auto) % Lymph % (Auto) % [place] % (Auto) % Eos % (Auto) % Baso % (Auto) % Neut # (Auto) (1.4-6.5) K/uL Lymph # (Auto) (1.2-3.4) K/uL [place] # (Auto) (0.24-0.82) K/uL Eos # (Auto) (0-0.50) K/uL Baso # (Auto) (0-0.2) K/uL Immature Gran # (Auto) (0.00-0.02) K/uL Sodium (136-145) mmol/L Potassium (3.5-5.1) mmol/L Chloride (98-107) mmol/L Carbon Dioxide (21-32) mmol/L Anion Gap (3-11) BUN (6-23) mg/dl Creatinine (0.6-1.4) mg/dl Est Cr Clr Drug Dosing ml/min Est GFR ( Amer) ml/min Est GFR (Non-Af Amer) ml/min BUN/Creatinine Ratio (10-20) Glucose (70-99(Fasting)) mg/dl POC Glucose 91 90 (70-99) mg/dl Calcium (8.5-10.1) mg/dl Magnesium 1.8 (1.7-2.4) mg/dl Carcinoembryonic Ag (0-2.5) ng/ml 07/28/22 07/28/22 07/27/22 Range/Units 05:36 05:36 20:20 WBC 11.48 H (4.8-10.8) K/ul RBC 3.40 L (4.63-6.08) M/uL Hgb 9.1 L (14.0-18.0) g/dl Hct 29.2 L (40.1-51.0) % MCV 85.9 (80.0-100.0) fL MCH 26.8 (25.0-34.0) pg MCHC 31.2 L (32.0-36.0) g/dL RDW Std Deviation 48.9 H (36.4-46.3) fL RDW Coeff of Jason 15.7 H (11.5-14.5) % Plt Count 244 (130-400) K/uL MPV 10.4 (9.4-12.4) fL Immature Gran % (Auto) 0.6 % Neut % (Auto) 66.4 % Lymph % (Auto) 20.3 % [place] % (Auto) 7.3 % Eos % (Auto) 4.9 % Baso % (Auto) 0.5 % Neut # (Auto) 7.62 H (1.4-6.5) K/uL Lymph # (Auto) 2.33 (1.2-3.4) K/uL [place] # (Auto) 0.84 H (0.24-0.82) K/uL Eos # (Auto) 0.56 H (0-0.50) K/uL Baso # (Auto) 0.06 (0-0.2) K/uL Immature Gran # (Auto) 0.07 H (0.00-0.02) K/uL Sodium 134 L (136-145) mmol/L Potassium 3.4 L (3.5-5.1) mmol/L Chloride 100 (98-107) mmol/L Carbon Dioxide 27 (21-32) mmol/L Anion Gap 7 (3-11) BUN 12 (6-23) mg/dl Creatinine 0.77 (0.6-1.4) mg/dl Est Cr Clr Drug Dosing 176.6 ml/min Est GFR ( Amer) 114.3 ml/min Est GFR (Non-Af Amer) 98.6 ml/min BUN/Creatinine Ratio 15.6 (10-20) Glucose 80 (70-99(Fasting)) mg/dl POC Glucose 91 (70-99) mg/dl Calcium 8.0 L (8.5-10.1) mg/dl Magnesium (1.7-2.4) mg/dl Carcinoembryonic Ag (0-2.5) ng/ml 07/27/22 07/27/22 Range/Units 16:33 13:00 WBC (4.8-10.8) K/ul RBC (4.63-6.08) M/uL Hgb (14.0-18.0) g/dl Hct (40.1-51.0) % MCV (80.0-100.0) fL MCH (25.0-34.0) pg MCHC (32.0-36.0) g/dL RDW Std Deviation (36.4-46.3) fL RDW Coeff of Jason (11.5-14.5) % Plt Count (130-400) K/uL MPV (9.4-12.4) fL Immature Gran % (Auto) % Neut % (Auto) % Lymph % (Auto) % [place] % (Auto) % Eos % (Auto) % Baso % (Auto) % Neut # (Auto) (1.4-6.5) K/uL Lymph # (Auto) (1.2-3.4) K/uL [place] # (Auto) (0.24-0.82) K/uL Eos # (Auto) (0-0.50) K/uL Baso # (Auto) (0-0.2) K/uL Immature Gran # (Auto) (0.00-0.02) K/uL Sodium (136-145) mmol/L Potassium (3.5-5.1) mmol/L Chloride (98-107) mmol/L Carbon Dioxide (21-32) mmol/L Anion Gap (3-11) BUN (6-23) mg/dl Creatinine (0.6-1.4) mg/dl Est Cr Clr Drug Dosing ml/min Est GFR ( Amer) ml/min Est GFR (Non-Af Amer) ml/min BUN/Creatinine Ratio (10-20) Glucose (70-99(Fasting)) mg/dl POC Glucose 82 (70-99) mg/dl Calcium (8.5-10.1) mg/dl Magnesium (1.7-2.4) mg/dl Carcinoembryonic Ag 6.9 H (0-2.5) ng/ml PG Care Time/CCT Total # of Minutes Spent Total Time Spent with Patient: Total time spent is greater than 50% in coordination of care (as documented) at patient's floor/unit and/or counseling patient: Coding Level of Care Code 50980 Subseq Hosp Care Lvl 3 Diagnoses S/P right colectomy Z90.49 Colonic mass K63.89 Colon adenocarcinoma C18.9 Anemia D64.9 Ischemic cardiomyopathy I25.5 CHF (congestive heart failure) I50.9 CAD (coronary artery disease) I25.10 Chronic deep vein thrombosis (DVT) I82.509 BPH with obstruction/lower urinary tract symptoms N40.1; N13.8 Diabetes mellitus, type II E11.9 JOSE on CPAP G47.33; Z99.89 Hypothyroidism E03.9
[2022-07-28] MEDS: VALSARTAN/SACUBITRIL 26/24MG TAB PO SCH (08:00)
[2022-07-28] MEDS: TAMSULOSIN HCL 0.4 MG CAP PO SCH (08:00)
[2022-07-28] MEDS: APIXABAN 5 MG TABLET PO SCH (08:00)
[2022-07-28] MEDS: GABAPENTIN 300 MG CAP PO SCH (08:00)
[2022-07-28] MEDS: INSULIN ASPART PER UNIT SC SCH ×2 (08:07→12:40)
[2022-07-28] MEDS: BUMETANIDE 1 MG TAB PO SCH (08:09)
[2022-07-28] MEDS: carvediloL 12.5 MG TAB PO SCH ×2 (08:09→10:50)
[2022-07-28] MEDS ORDERED: IRON SUCROSE 200 MG in 0.9 % SODIUM CHLORIDE 100 ML IV ONE (08:15)
--- NOTE | 2022-07-28 09:41 | Surgery Progress Note ---
Date of Service July 28, 2022 Assessment & Plan (1) S/P right colectomy: Plan: doing well advance to low residue. d/c after lunch if he tolerates it instructions given. Admission and Anticipated Discharge Date Admission Date: July 21, 2022 Subjective pt seen. doing well. wants to go home. minimal pain. sheila full liquids Physical Exam Physical Exam: alert. nad Gastrointestinal (Abdomen): soft. nt. incision looks good. Results & Data ([facility]) Vital Signs (Past 12 Hours) Vital Signs Temp Pulse Pulse Resp BP Pulse Ox O2 Del Method 07/28/22 07:05 36.5 C 62 20 144/88 H 96 CPAP 07/28/22 07:00 55 L 07/27/22 22:14 54 L 07/28/22 03:03 36.3 C L 61 18 145/86 H 97 Room Air 07/27/22 23:18 36.7 C 58 L 16 146/87 H 92 Room Air PG Care Time/CCT Total # of Minutes Spent Total Time Spent with Patient: Total time spent is greater than 50% in coordination of care (as documented) at patient's floor/unit and/or counseling patient: Coding Level of Care Code None Diagnoses S/P right colectomy Z90.49
--- NOTE | 2022-08-03 12:26 | Discharge Summary ---
Date of Service July 28, 2022 Principal Diagnosis colon cancer Discharge Exam awake/alert, no distress Gastrointestinal (Abdomen) Inspection/Auscultation: + abdominal surgical incision (c/d/i with nikita in place ) Percussion/Palpation: abdomen soft Discharge Data Allergies Allergy/AdvReac Type Severity Reaction Status Date / Time piperacillin [From Zosyn] Allergy Mild fever and Verified 07/21/22 06:00 chills tazobactam [From Zosyn] Allergy Mild fever and Verified 07/21/22 06:00 chills Consultations 07/24/22 12:18 Consult Hospitalist Routine Procedures Performed Operation Date: 07/21/22 07:15 Actual Procedures p Open Right Hemicolectomy with Enterolysis(Right) - Tavares Tejeda, Hospital Course (1) Colon cancer: This is a 61yM with history of colon mass who presented to the [facility] on 07/21/22 for planned surgical intervention. He went to the OR with Dr. Tejeda and underwent an open right hemicolectomy. The patient tolerated the procedure well, see op note for full details. He recovered in the PACU and was transferred to the med/surg unit in stable condition with a rosas catheter, post op abx, and NPO with IVF. On POD#1 patient advanced to clear liquids. Pain controlled as he transitioned from a [employer] to IV prn medications. Activity encouraged. Rosas was removed, however due to urinary retention and failure to void it was replaced. On POD#2-#3 patient noted to have some abdominal distention. He began having nausea/vomiting therefore an NGT was placed while awaiting return of bowel function. The hospitalists were consulted for their assistance with medical management throughout his hospitalization. He was started on lovenox and then ultimately transitioned to his home plavix and eliquis once taking in PO meds. On POD#5 patient's NGT was removed and he started on clear liquids. As he started passing more flatus and having BM's his diet continued to be advanced slowly. Rosas was removed on 11/2 and he was able to void thereafter without issues. On 11/3 patient was tolerating a regular diet, pain controlled on oral medications, having + bowel/bladder function, and incisions c/d/i. He was deemed stable for discharge to home with follow up with his PCP as well as with surgery within 1-2 weeks. Total Time Total Time Spent Total Time Spent (In Minutes): 15 Discharge Plan Discharge Items Patient Disposition: Home - Self-Care Reason For Visit: Colon Cancer Discharge Diagnosis: right colon resection Activity: Per Instructions section Lifting: No more than 10 pounds Bathing Comment: may shower; no soaking in tubs/pools Exercise/Sports: Wait until after follow-up appointment Driving/Machine Use: no driving until cleared by surgeon Non-emergency contact: Surgeon Call non-emergency contact if: you have any medication questions, your symptoms worsen, your pain is not controlled, you have a fever, your temperature is above 101.5, your wound has increased redness, your wound has increased drainage and your wound pain has increased Follow-up/Referrals: Tatum Red DO [Primary Care Provider] - 08/09/22 1:20 pm Tavares Tejeda DO [Surgeon] - 08/10/22 9:45 am () Pedro Liang MD [Physician] - 08/12/22 3:00 pm Diet: Low Fiber Diet Comment: low fiber diet until cleared by surgeon Addtl Attending Provider Instructions: Your surgical nikita will be removed at your follow up appointment Pending Studies at Discharge: Yes Studies:: surgical pathology Stand-Alone Forms: My [facility] [facility] Medications and DC Order Prescriptions: New oxycodone-acetaminophen [Percocet] 5-325 mg tablet 1 - 2 tab PO Q4H PRN (Reason: pain, initial therapy, max 6 daily) Qty: 15 0RF Continued levothyroxine 25 mcg tablet 25 mcg PO DAILY Qty: 90 3RF clopidogrel [Plavix] 75 mg tablet 75 mg PO QAM Qty: 100 3RF levothyroxine 200 mcg tablet 200 mcg PO DAILY Qty: 100 3RF atorvastatin [Lipitor] 80 mg tablet 80 mg PO QAM Qty: 100 1RF potassium chloride 10 mEq capsule, extended release 10 meq PO QAM Qty: 100 1RF gabapentin [Neurontin] 300 mg capsule 300 mg PO BID Qty: 200 1RF cholecalciferol (vitamin D3) 50 mcg (2,000 unit) capsule 2,000 unit PO DAILY Qty: 90 0RF carvedilol [Coreg] 25 mg tablet 12.5 mg PO BID Rx Instructions: must administer with a meal/food Centrum Silver 0.4-300-250 mg-mcg-mcg tablet 1 tab PO QAM bumetanide 1 mg tablet 1 mg PO QAM Rx Instructions: 1 mg tamsulosin [Flomax] 0.4 mg capsule 0.4 mg PO DAILY Qty: 100 3RF finasteride [Proscar] 5 mg tablet 5 mg PO QAM Qty: 100 3RF ferrous sulfate 325 mg (65 mg iron) Tablet 325 mg PO BID Entresto 24-26 mg Tablet 1 tab PO BID Discontinued Sutab 1.479-0.188- 0.225 gram tablet 1 tab PO .COMPLEX Qty: 24 0RF Rx Instructions: 1 tab orally as directed for bowel prep; peg 3350-electrolytes [Golytely] 236-22.74-6.74 -5.86 gram recon soln 240 ml PO Q10M Qty: 4000 0RF Rx Instructions: Take per split dose instructions No Action Eliquis 5 mg tablet 5 mg PO BID Qty: 180 1RF Discharge Orders: Discharge Order (Routine); Ordered 07/28/22 Ordered By: Tavares Joe/Other Patient Handouts: Low-Fiber Diet Admission Data Admit Date/Time: 07/21/22 10:08 Attending Provider: Tavares Tejeda Admit Provider: Tavares Tejeda Primary Care Provider: Tatum Red Other Providers: Yeison Cortez ; Janet Saenz Other Interventions: Discharge Summary Assessment (RN) Last Done: 07/28/22 13:03 Coding Level of Care Code D/C DAY MANAGEMENT <30 MINS Diagnoses Colon cancer C18.9
== END 2022-07-28 15:15 | disposition home or self-care (01) | DRG 330 ==
LOC: ASU 05:31 → 3N 10:08 → 2W 07-24 14:53

== ENCOUNTER 2025-02-10 05:30 | Observation (INO) ==
--- NOTE | 2025-02-06 13:57 | Anesthesiology Consultation ---
Date of Service February 06, 2025 Assessment & Plan (1) Encounter for pre-operative examination: - Check BSG DOS - Eliquis/ASA instructions per surgeon/prescriber - Infectious disease screening: Per assessment on 02/06/25- No known recent infectious disease contacts or current infectious disease symptoms. - Cardiology visit (10/15/24): "The patient presented on August 07 for a dobutamine stress echocardiogram. This was not performed as the patient was hypertensive and complaining of a headache. His echocardiogram that day noted normal left ventricular systolic function with an ejection fraction of 50%. The left ventricle is mildly dilated. There were no wall motion abnormalities. There was mild aortic insufficiency. Results personally reviewed and discussed in detail. The patient was then scheduled for a Lexiscan stress test which was performed on October 08. This was abnormal and that it noted a moderate-sized infarct involving the inferior and inferolateral singh. The ejection fraction was estimated at 34% with akinesis of the same segments. Results personally reviewed and discussed in detail. At no time did the patient experience a prolonged chest pain syndrome between August 07 and October 08. We have discussed the possibility of a false positive nuclear stress test related to diaphragmatic attenuation. "A quick look echocardiogram was performed in the office today. This revealed normal left ventricular systolic function without wall motion abnormalities. An estimated left ventricular ejection fraction is 50%. Results personally reviewed and discussed in detail." "The patient is stable from a cardiovascular standpoint. It appears that his nuclear stress test was a false positive. He has experienced no cardiac symptoms. A quick look echocardiogram performed in the office today notes normal left ventricular systolic function without wall motion abnormalities. Left ventricular ejection fraction is 50%. He demonstrates excellent control of his blood pressure both at home and in the office today. Fortunately, his coronary artery disease remai ns quiescent on his current medical regimen.. Okay to proceed with chemotherapy" Continued on same regimen. - PCP visit (01/23/25): "Well exam completed today.. Colon adenocarcinoma.. Dx jun 2022, s/p R hemicolectomy 07/21/22, following w/ GS and oncology at [facility].. s/p chemo and radiation for metastatic disease.. reports recent testing noting possible recurrence.. He will f/u w/ oncology soon.. stable, baseline Cr appears to be 0.9-1.1.. avoid NSAIDs.. Variable, last TSH high and medication adjusted. He will continue current dose of levothyroxine, repeat TSH upon exit.. Ischemic cardiomyopathy.. Fluid status stable, h/o ICM, last known EF normalized.. he will continue bumex, coreg bid.. care per Cardiology.. BPH with obstruction/lower urinary tract symptoms.. To have procedure next week w/ [facility].. he will continue flomax, proscar, care per urology" - Patient acceptable risk for given surgery pending evaluation DOS. Chart Review Chart Review: Patient NOT seen in Pre Admission Testing History Surgery Operation Date: 02/10/25 12:50 Proposed Procedures p PVP Greenlight Laser, Photoselective Vaporization of the Prostate Using the Greenlight Laser - Rex Martinez, DO Height/Weight Height: 6 ft 6 in Weight: 154.221 kg Allergies Allergy/AdvReac Type Severity Reaction Status Date / Time aprepitant [From Emend] AdvReac Intermediate Back Pain Verified 02/06/25 10:42 fosaprepitant [From Emend] AdvReac Intermediate Back Pain Verified 02/06/25 10:42 piperacillin [From Zosyn] AdvReac Intermediate fever and Verified 02/06/25 10:42 chills tazobactam [From Zosyn] AdvReac Intermediate fever and Verified 02/06/25 10:42 chills Medications Home Medications Medication Instructions Recorded Confirmed Last Taken cvcukrkp-isn-qduxh acid 0.4 1 tab PO QAM 03/25/21 02/06/25 06/10/24 mg-lycopene 300 mcg-lutein 250 mcg tablet (Centrum Silver) cholecalciferol (vitamin D3) 50 2,000 unit PO QAM 09/20/23 02/06/25 06/10/24 mcg (2,000 unit) capsule apixaban 5 mg tablet (Eliquis) 5 mg PO BID #180 tabs 01/19/24 02/06/25 06/08/24 atorvastatin 80 mg tablet (Lipitor) 80 mg PO QAM #100 tabs 02/02/24 02/06/25 06/11/24 bumetanide 0.5 mg tablet 0.5 mg PO QAM #90 tabs 02/02/24 02/06/25 06/10/24 gabapentin 300 mg capsule 300 mg PO TID #360 caps 05/20/24 02/06/25 06/11/24 (Neurontin) finasteride 5 mg tablet (Proscar) 5 mg PO QAM #90 tabs 06/28/24 02/06/25 Unknown carvedilol 6.25 mg tablet 6.25 mg PO BID #180 tabs 07/05/24 02/06/25 Unknown potassium chloride 10 mEq 10 meq PO QAM #90 caps 11/07/24 02/06/25 Unknown capsule,extended release aspirin 81 mg tablet,delayed 81 mg PO QAM 12/03/24 02/06/25 Unknown release ferrous sulfate 325 mg (65 mg 325 mg PO QAM 01/23/25 02/06/25 Unknown iron) tablet diazepam 5 mg tablet 5 mg PO TID PRN Anxiety #30 tabs 02/04/25 02/06/25 Unknown levothyroxine 175 mcg tablet 175 mcg PO QAM #100 tabs 02/04/25 02/06/25 Unknown sacubitril 24 mg-valsartan 26 mg 1 tab PO BID please replace 180 02/04/25 02/06/25 Unknown tablet (Entresto) tabs with 200 #200 tabs levothyroxine 25 mcg tablet 25 mcg PO QAM 02/06/25 02/06/25 Unknown tamsulosin 0.4 mg capsule (Flomax) 0.4 mg PO QAM 02/06/25 02/06/25 Unknown Past Medical History Medical History Anemia Ascending aorta dilatation BPH (benign prostatic hyperplasia) CAD (coronary artery disease) Chronic systolic CHF (congestive heart failure) Dx 1994, "no current issues" Diabetes mellitus, type 2 Diet controlled Dyslipidemia History of chemotherapy 06/2022; restarted november 2023, completed 08/2024 History of colorectal cancer Dx 06/2022, s/p right hemicolectomy + radiation/chemo Dx 11/2023, chemo tx History of kidney stones 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 secondary to cervical spine surgery in 2017 Post op complications included decutitus ulcer, colostomy (later reversed), immobility caused right LE DVT (IVC filter placed- later removed) Hx of colonic polyps Hx of deep venous thrombosis 2016 (complication from immobility from surgery)- bilateral LE Hx of iron deficiency anemia Hx SBO Hypertension Hypothyroidism Infected prosthetic mesh of abdominal wall Remote hx, w/removal of mesh Ischemic cardiomyopathy Metastasis to liver Morbid obesity JOSE on CPAP PVD (peripheral vascular disease) S/p right common iliac [place] venous stent 10/01/20 S/P bilateral CIV stenting ([id number]), and REIV stenting ([id number]) 08/2019 in [place] Urinary retention Past Family History Family History Mother Diabetes Clotting disorder Kidney disease Hypertension Father Diabetes Coronary heart disease Myocardial infarction Hypertension Uncle Colorectal cancer Other No family history of adverse response to anesthesia Denies family history of Ovarian cancer Prostate cancer Breast cancer Past Surgical History Surgical History H/O abdominal surgery Abdominal Wall Exploration with Explant of Old Mesh, Component Separation, Abdominal Wall Reconstruction with Biological Mesh, Enterolysis (2020) H/O neck surgery (2016) C3-C7 discectomy/fusion History of cardiac cath 2019- no stents History of colostomy (2016) R/t decubitus ulcer History of colostomy reversal (2018) History of cystoscopy Cystoscopy, Retrograde Pyelogram with radiographic interpretation, Insertion of Stent Catheter History of gastric surgery (2002) hx of vertical banded gastroplasty History of incisional hernia repair Incisional hernia repair with Ventrio mesh 15x25.7cm and Biologic integra 10x12.5cm as a layered mesh Ventrio first, then Integra. (2019) History of intravascular stent placement (2016) b/l iliac stent History of lithotripsy Port-A-Cath in place (09/01/22) Infusaport of Access Port S/P colonoscopy S/P insertion of IVC (inferior vena caval) filter placed in 2016, removed in 2018 S/P right colectomy Social History Smoking Status: Never smoker Do You Dip or Chew Tobacco: No Hx Alcohol Use: Yes Alcohol type: hard liquor alcohol intake frequency: other Alcohol Intake Frequency Comment: "very rarely" Hx Substance Use: No substance use type: does not use Lab Results Anesthesia Preop Results Results Anesthesia Widget: WBC 8.02 K/ul (4.8-10.8) 01/09/25 Hgb 11.5 g/dl (14.0-18.0) L 01/09/25 Hct 36.4 % (42.0-52.0) L 01/09/25 Plt 162 K/uL (130-400) 01/09/25 Na 140 mmol/L (136-145) 01/09/25 K 3.8 mmol/L (3.5-5.1) 01/09/25 Cl 106 mmol/L (98-107) 01/09/25 CO2 30 mmol/L (21-32) 01/09/25 BUN 17 mg/dl (6-23) 01/09/25 Creat 0.92 mg/dl (0.6-1.4) 01/09/25 Glucose Level 104 mg/dl (70-99(Fasting)) H 01/09/25 TSH 1.094 uIu/ml (0.300-4.500) 01/24/25 HA1c 6.6 % (4.5-5.6) H 01/09/25 Testing Laboratory Results Urine culture (02/05/25): no growth Electrocardiogram Date: 12/24/24 NSR at 64bpm. iRBBB. LAFB. Moderate voltage criteria for LVH, may be normal variant. Cannot r/o inferior infarct (cited on or before 12/24/2021 per production clerks supervisor comparison). Echocardiogram Date: 06/29/23 EF 50-55%. No regional wall motion abnormality noted. Borderline dilated as cending aorta (3.8 cm). Mild aortic root dilatation (4.1 cm). Mild RAD/LAD. Date: 10/15/24 Quick look Echo performed at [facility] visit (report findings listed below are from [facility] cardio office visit note; no official report given it was an in-office "quick look" echo) "A quick look echocardiogram was performed in the office today. This revealed normal left ventricular systolic function without wall motion abnormalities. An estimated left ventricular ejection fraction is 50%. Results personally reviewed and discussed in detail." Stress Test Date: 10/09/24 Impression: 1. Abnormal myocardial perfusion study suggesting inferior, inferolateral, and basal lateral infarct, with kevan-infarct ischemia. 2. Akinesis of the inferior, inferolateral, and basal lateral wall segments. Reduced LV systolic function (calculated EF 34%). 3. Lexiscan induced warm sensation. 4. Nondiagnostic Lexiscan ECG. 5. Message sent to Dr. Guzman, ordering provider, notifying him of the findings. Cardiac Catheterization Date: 10/30/19 EF 35-40%. Moderate diffuse HK. "LAD, ramus and RCA look good. There is ectasia of the distal left main. Distal circumflex is occluded as it was in 2015. CAD does not explain the cardiomyopathy. Will plan medical therapy for CHF." Other Testing Chest CT Date: 01/24/25 IMPRESSION: 1. Interval stable scattered pulmonary nodules, most of which are calcified. Lung-Rads 2: Benign-Based on imaging features or indolent behavior Estimated Population Prevalence:45%. Management: 12-month screening LDCT. 2. No new nodule or any other significant interval change noted in comparison to the prior study.
[2025-02-10] MEDS: LR 15ML/HR IV SCH (06:02)
--- NOTE | 2025-02-10 06:42 | History & Physical Bridge Note ---
Date of Service February 10, 2025 History & Physical Bridge Note I have examined the patient, reviewed the History & Physical and in the interval since the performance of the History & Physical I have noted the following changes of clinical significance: no changes noted Risks and benefits discussed at length for procedure. These include bleeding, infection, injury to surrounding tissues or organs, and risks associated with anesthesia. Patient states understanding and agrees to proceed. Will sign consent and proceed. Plan for Greenlight PVP
[2025-02-10] MEDS ORDERED: MoRPHine SULFATE 2 MG/ML CARP IV PRN (06:44)
[2025-02-10] MEDS ORDERED: ONDANSETRON INJ 2 MG/ML 2 ML VIAL IV PRN ×2 (06:44→06:50)
[2025-02-10] MEDS ORDERED: oxyBUTYnin chloride 5 MG TAB PO PRN (06:44)
[2025-02-10] MEDS ORDERED: oxyCODONE/ACETAMINOPHEN 5mg/325mg TAB PO PRN ×2 (06:44)
[2025-02-10] MEDS ORDERED: PHENAZOPYRIDINE HCL 200 MG TAB PO PRN (06:44)
[2025-02-10] MEDS ORDERED: diazePAM 5 MG TABLET PO PRN (06:49)
[2025-02-10] MEDS ORDERED: ATROPINE SULFATE 0.1 MG/ML 10ML SYR IV PRN (06:50)
[2025-02-10] MEDS ORDERED: ePHEDrine sulfate 50 MG/ML AMP IV PRN (06:50)
[2025-02-10] MEDS ORDERED: MIDAZOLAM HCL 1 MG/ML 2ML VIAL ONE (06:53)
[2025-02-10] MEDS ORDERED: fentaNYL citrate PF 100 MCG/2 ML VIAL ONE (06:54)
[2025-02-10] MEDS: CIPROFLOXACIN / D5W 400 MG/200 ML BAG IV SCH ×2 (07:04→18:00)
[2025-02-10] MEDS ORDERED: DEXAMETHASONE SOD INJ 4 MG/ML VIAL ONE (07:25)
[2025-02-10] MEDS ORDERED: PROPOFOL IV EMULSION 10 MG/ML 20 ML VIAL IV ONE (07:25)
[2025-02-10] MEDS ORDERED: ONDANSETRON INJ 2 MG/ML 2 ML VIAL ONE (07:33)
--- NOTE | 2025-02-10 09:16 | Operative Report ---
PG Post Operative Report Pre & Post Diagnosis Operation Date: 02/10/25 07:00 Pre-Op Diagnosis: Benign Prostatic Hyperplasia Post-Op Diagnosis: Benign Prostatic Hyperplasia I identified the patient and participated in the time-out.: Yes Procedure Operation Date: 02/10/25 07:00 Actual Procedures Greenlight Laser Photoselective Vaporization of the Prostate, Greenlight Laser Enucleation of the Prostate - Rex Martinez DO Surgeon Rex Martinez, II, DO [employer] Blasting None Estimated Blood Loss 10 Findings Consistent with Post-Op Diagnosis Extremely Large Prostate with obstruction. Specimens Prostate adenoma. Drains 22 Fr 3-way Catheter Anesthesia Type General Complications none Disposition Disposition: Recovery Room Indications Patient with obstruction due to prostate enlargement. Risks and benefits discussed at length. Description of Procedure Patient was consented and brought back to the operating room. Patient was placed under anesthesia in the supine position and moved to the dorsal lithotomy position. Patient was prepped and draped in the regular sterile fashion. A time out was completed. A 30degree Cystoscope was placed into the bladder and the entire bladder was examined. The UO's were identified as well as the bladder neck, trigone, dome, and the other important landmarks. The prostatic urethra and large lobes/adenoma was assessed and the veru and bladder neck identified and area/size was assessed. The cystoscope with laser bridge and the Greenlight laser fiber were selected. Starting at the 5 and 7 o'clock positions, a channel was created from bladder neck to the veru. A channel was further formed between the two areas. No major bleeding or areas of concern. The resection then started at the 1 and 11 oclock positions and swept down to the channel. Adenoma pieces were enucleated along the left lateral lobe of the prostate and displaced into the bladder. All bleeding was controlled. Extensive lasering and vaporization was completed. The Specimen was removed and sent for analysis. The large adenoma enucleated from the left lateral lobe of the prostate had to be resected with a bipolar loop in order to remove the prostate adenoma. This was irrigated clear and sent for analysis. The resection bed and any bleeding areas were fulgurated/cauteri zed and the entire area inspected. All bleeding was controlled. The bladder was inspected a final time. The bladder was emptied and irrigated. All specimen and debris was removed. The scope was removed with the bladder partially full. A 22 fr catheter was placed and balloon elevated. This was easily irrigated. The patient was cleaned, aroused from anesthesia, and transferred to the pacu in s table condition having tolerated the procedure well with no complications. I was present and participated in all aspects of the procedure. The patient will be monitored in the PACU until transferred. Will likely need catheter for 5-7 days. Remove in office. Followup for pathology in 2-3 weeks. I attest to the content of the Intraoperative Record and any orders documented therein. Any exceptions are noted below.
[2025-02-10] MEDS: fentaNYL citrate PF 100 MCG/2 ML VIAL IV PRN (09:58)
[2025-02-10 10:08] LABS: Basophils # (auto) 0.05 K/uL (0.00-0.20); Basophils % (auto) 0.5 %; Eosinophils # (auto) 0.19 K/uL (0.00-0.50); Hematocrit (blood only) 37.2 % (42.0-52.0); Hemoglobin 11.8 g/dl (14.0-18.0); Immature Granulocytes # (auto) 0.06 K/uL (0.01-0.20); Immature Granulocytes % (auto) 0.6 %; Lymphocytes # (auto) 1.36 K/uL (1.20-3.40); Lymphocytes % (auto) 14.1 %; Mean Corpuscular Hemoglobin 27.8 pg (25.0-34.0); Mean Corpuscular Hgb Conc 31.7 g/dL (32.0-36.0); Mean Corpuscular Volume 87.5 fL (80.0-100.0); Mean Platelet Volume 10.4 fL (9.4-12.4); Monocytes # (auto) 0.34 K/uL (0.11-0.59); Monocytes % (auto) 3.5 %; Neutrophils # (auto) 7.62 K/uL (1.40-6.50); Neutrophils % (auto) 79.3 %; Platelet Count 149 K/uL (130-400); RDW Coefficient of Variation 15.9 % (11.5-14.5); Red Blood Count 4.25 M/uL (4.70-6.10); White Blood Count 9.62 K/ul (4.8-10.8)
[2025-02-10 10:33] LABS: Albumin Globulin Ratio 1.1 (0.9-2); Albumin Level 3.7 gm/dl (3.4-5.0); BUN Creatinine Ratio 17.9 (10-20); Bilirubin,Total 0.6 mg/dl (0.2-1.0); Calcium 8.6 mg/dl (8.6-10.3); Creatinine Clr Calc Pharmacy 132.4 ml/min; Globulin 3.3 gm/dl (2.5-4.0); Potassium 3.9 mmol/L (3.5-5.1)
--- NOTE | 2025-02-10 11:16 | Hospitalist Consultation ---
Date of Consultation February 10, 2025 Assessment & Plan (1) Chronic systolic CHF (congestive heart failure): (2) Colon adenocarcinoma: (3) Stenosis of iliac vein: (4) Diabetes mellitus, type II: Plan This patient is a 64-year-old male with a history of HTN, HLD, dilated aortic root and ascending TAA, resolved ischemic cardiomyopathy, small vessel CAD, colon cancer with liver metastases s/p chemotherapy and radiation, now with likely recurrence, CKD stage III, diet-controlled DM 2,cervical myelopathy with neuropathy, hypothyroidism, BPH with LUTS, JOSE on CPAP, PAD, PRANAV, and DVT, iliac vein stenoses s/p bilateral iliac vein stents on Eliquis, nephrolithiasis, history of gastric bypass surgery, iron deficiency anemia, and vitamin D deficiency who is here being managed postoperatively from a greenlight laser photo selective vaporization and enucleation of the prostate. A Steele catheter is in place. The hospital service was consulted for medical management. #Chronic HFimHF/HTN/HLD/small vessel CAD/PAD-patient is stable at this time, blood pressures are low normal postoperatively, asymptomatic - On medical floor with telemetry for arrhythmia monitoring - Holding home aspirin and Eliquis but can resume on the morning of 02/11 if no bleeding - Continue home carvedilol with hold parameters, but hold Entresto/Bumex/KCl for now - Continue home atorvastatin - Follow BMP in the morning - Monitor blood pressures #Recurrent colon cancer with metastases to the liver-is s/p previous chemotherapy, hemicolectomy, and radiation. Now with rising CEA and Signatera test indicating likely recurrence. Alkaline phosphatase mildly elevated on recent chemistries may indicate issue with the liver - Follow-up with oncology after discharge-plans for possible repeat chemotherapy treatment #Diet-controlled DM2-he does not take medications for this at home - Add on BSG's AC and at bedtime, supplemental NovoLog as needed #Hypothyroidism-recent TSH normal at 1.0 - Continue home levothyroxine #Cervical myelopathy with neuropathy-no acute issues, is s/p cervical discectomy and fusion in the past, has chronic neuropathy in the hands and feet - Continue home gabapentin and as needed diazepam #CKD stage III-no acute issues, creatinine at baseline - Renally dose medications when necessary, avoid nephrotoxins - Follow BMP #JOSE on CPAP -Ordered that he can use his CPAP from home #BPH with LUTS/history of nephrolithiasis-here status post greenlight laser therapy with removal of adenoma. Steele catheter in place hooked to CBI - Urology managing postoperative care - Morphine and oxycodone as needed for pain - Cipro for empiric antibiotic therapy - Follow-up pathology when available - Can stop home finasteride but continue Flomax for now - Steele catheter to remain in for 5 to 7 days - Pyridium and oxybutynin as needed #Iron deficiency anemia/history of gastric bypass surgery-gastric bypass surgery contributing to anemia. Hemoglobin mildly low at 11. B12 recently checked and normal - Restart home ferrous sulfate - Follow CBC postoperatively and follow-up with PCP #Vitamin D deficiency-no acute issues - Restart home vitamin D supplementation DVT prophylaxis-SCDs, plan to resume Eliquis on the a.m. of 02/11 if no hematuria Disposition-continued stay on medical floor with telemetry, hospitalist service will follow along History of Present Illness Reason for Consultation: Diabetes, PVD, anticoagulation, cancer Requesting Physician: Dr. Martinez Attending Physician: Rex Martinez, II, DO History of Present Illness This patient is a 64-year-old male with a history of HTN, HLD, dilated aortic root and ascending TAA, resolved ischemic cardiomyopathy, small vessel CAD, colon cancer with liver metastases s/p chemotherapy and radiation, now with likely recurrence,, CKD stage III, diet-controlled DM 2,cervical myelopathy with neuropathy, hypothyroidism, BPH with LUTS, JOSE on CPAP, PAD, PRANAV, and DVT, iliac vein stenoses s/p bilateral iliac vein stents on Eliquis, nephrolithiasis, history of gastric surgery, iron deficiency anemia, and vitamin D deficiency who is here being managed postoperatively from a greenlight laser photo selective vaporization and enucleation of the prostate. A Steele catheter is in place. The patient denies chest pain, shortness of breath, nausea, lightheadedness. Last bowel movement was yesterday. He has no complaints. The hospital service was consulted for medical management. I did discuss his case with the urology team. Allergies Allergy/AdvReac Type Severity Reaction Status Date / Time aprepitant [From Emend] AdvReac Intermediate Back Pain Verified 02/10/25 05:45 fosaprepitant [From Emend] AdvReac Intermediate Back Pain Verified 02/10/25 05:45 piperacillin [From Zosyn] AdvReac Intermediate fever and Verified 02/10/25 05:45 chills tazobactam [From Zosyn] AdvReac Intermediate fever and Verified 02/10/25 05:45 chills Home Medications Medication Instructions Recorded Confirmed Type [id number] acid 0.4 1 tab PO QAM 03/25/21 02/10/25 History mg-lycopene 300 mcg-lutein 250 mcg tablet (Centrum Silver) cholecalciferol (vitamin D3) 50 2,000 unit PO QAM 09/20/23 02/10/25 History mcg (2,000 unit) capsule apixaban 5 mg tablet (Eliquis) 5 mg PO BID #180 tabs 01/19/24 02/10/25 Rx atorvastatin 80 mg tablet (Lipitor) 80 mg PO QAM #100 tabs 02/02/24 02/10/25 Rx bumetanide 0.5 mg tablet 0.5 mg PO QAM #90 tabs 02/02/24 02/10/25 Rx gabapentin 300 mg capsule 300 mg PO TID #360 caps 05/20/24 02/10/25 Rx (Neurontin) finasteride 5 mg tablet (Proscar) 5 mg PO QAM #90 tabs 06/28/24 02/10/25 Rx carvedilol 6.25 mg tablet 6.25 mg PO BID #180 tabs 07/05/24 02/10/25 Rx potassium chloride 10 mEq 10 meq PO QAM #90 caps 11/07/24 02/10/25 Rx capsule,extended release aspirin 81 mg tablet,delayed 81 mg PO QAM 12/03/24 02/10/25 History release ferrous sulfate 325 mg (65 mg 325 mg PO QAM 01/23/25 02/10/25 History iron) tablet diazepam 5 mg tablet 5 mg PO TID PRN Anxiety #30 tabs 02/04/25 02/10/25 Rx levothyroxine 175 mcg tablet 175 mcg PO QAM #100 tabs 02/04/25 02/10/25 Rx sacubitril 24 mg-valsartan 26 mg 1 tab PO BID please replace 180 02/04/25 02/10/25 Rx tablet (Entresto) tabs with 200 #200 tabs levothyroxine 25 mcg tablet 25 mcg PO QAM 02/06/25 02/10/25 History tamsulosin 0.4 mg capsule (Flomax) 0.4 mg PO QAM 02/06/25 02/10/25 History Patient History Medical History History of neuropathy "caused by spinal surgery not diabetes" "compressive neuropathy" History of kidney stones Hx of iron deficiency anemia Ischemic cardiomyopathy PVD (peripheral vascular disease) S/p right common iliac Challenge venous stent 10/01/20 S/P bilateral CIV stenting ([id number]), and REIV stenting ([id number]) 08/2019 in [place] JOSE on CPAP Metastasis to liver Hypothyroidism Hypertension Hx of colonic polyps Hx of deep venous thrombosis 2016 (complication from immobility from surgery)- bilateral LE Dyslipidemia Diabetes mellitus, type 2 Diet controlled Chronic systolic CHF (congestive heart failure) Dx 1994, "no current issues" CAD (coronary artery disease) BPH (benign prostatic hyperplasia) Ascending aorta dilatation Anemia History of colorectal cancer Dx 06/2022, s/p right hemicolectomy + radiation/chemo Dx 11/2023, chemo tx History of chemotherapy 06/2022; restarted november 2023, completed 08/2024 Urinary retention 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 secondary to cervical spine surgery in 2016 Post op complications included decutitus ulcer, colostomy (later reversed), immobility caused right LE DVT (IVC filter placed- later removed) Morbid obesity Hx SBO Infected prosthetic mesh of abdominal wall Remote hx, w/removal of mesh Surgical History H/O abdominal surgery Abdominal Wall Exploration with Explant of Old Mesh, Component Separation, Abdominal Wall Reconstruction with Biological Mesh, Enterolysis (2020) History of lithotripsy History of cystoscopy Cystoscopy, Retrograde Pyelogram with radiographic interpretation, Insertion of Stent Catheter Port-A-Cath in place (09/01/22) Infusaport of Access Port S/P right colectomy History of cardiac cath 2019- no stents S/P colonoscopy S/P insertion of IVC (inferior vena caval) filter placed in 2016, removed in 2018 H/O neck surgery (2016) C3-C7 discectomy/fusion History of gastric surgery (2002) hx of vertical banded gastroplasty History of incisional hernia repair Incisional hernia repair with Ventrio mesh 15x25.7cm and Biologic integra 10x12.5cm as a layered mesh Ventrio first, then Integra. (2019) History of intravascular stent placement (2016) b/l iliac stent History of colostomy reversal (2019) History of colostomy (2017) R/t decubitus ulcer Family History Mother Diabetes Clotting disorder Kidney disease Hypertension Father Diabetes Coronary heart disease Myocardial infarction Hypertension Uncle Colorectal cancer Other No family history of adverse response to anesthesia Denies family history of Ovarian cancer Prostate cancer Breast cancer Social History Smoking Status: Never smoker Second Hand Exposure: No; Do You Dip or Chew Tobacco: No; Tobacco Cessation Education Requested by Patient: No Hx Alcohol Use: Yes Alcohol type: hard liquor Hx Substance Use: No Preferred Language: Turkmen Communication Ability: Effective Visual Impairment: No Limitations Hearing Ability: Normal Information Systems Professor Required: No Beliefs That Will Affect Care: None marital status: Single Current Living Situation: Alone current occupational status: disabled How many Children do You have: 0 Other Information That Helps Us Care for You: No Feels Safe at Home: Yes Safety Concerns: Feels Safe At This Time Childhood Exposure to Second-Hand Smoke: No Diet: regular Diet Comment: regular caffeine: No during the past year weight has: remained stable Dental Care, Regularly: Yes Physical Activity Frequency: Daily Physical Activity Frequency Comment: house work Seatbelt Use: always Assistive Devices: CPAP and Glasses Review of Systems Review of Systems: All systems reviewed & are unremarkable except as noted in HPI & below Physical Exam Constitutional: WD/WN, vitals as above Neck: trachea midline, no thyromegaly Respiratory: normal respiratory effort, lungs clear to auscultation Cardiovascular: Rate/Rhythm: regular rate and regular rhythm Extremities: + edema (Trace pitting edema bilaterally) Chest (Breasts): Chest: normal inspection of chest Gastrointestinal (Abdomen): normal bowel sounds, soft, nontender, no hepatosplenomegaly Multiple incisional scars on abdomen Musculoskeletal: Extremities: extremities normal to inspection; no cyanosis and no clubbing Skin: no rashes, warm and dry Neurologic: moves all extremities and awake; no focal motor deficits Psychiatric: A+Ox3, euthymic affect Lymphatic: no lymphedema Results & Data Results & Data Vital Signs (Past 12 Hours) Vital Signs Temp Pulse Pulse Resp BP Pulse Ox O2 Del Method 02/10/25 10:30 67 12 108/56 L 94 Room Air 02/10/25 10:15 36.4 C L 67 16 111/63 93 Room Air 02/10/25 10:05 65 12 101/63 93 Room Air 02/10/25 09:55 66 12 105/66 95 Room Air 02/10/25 09:45 68 12 104/72 96 Room Air 02/10/25 09:35 62 12 108/58 L 99 Oxymask 02/10/25 09:25 36.2 C L 62 16 95/57 L 96 Oxymask 02/10/25 05:39 36.8 C 64 20 130/73 97 Room Air O2 Flow Rate 02/10/25 10:30 02/10/25 10:15 02/10/25 10:05 02/10/25 09:55 02/10/25 09:45 02/10/25 09:35 3 02/10/25 09:25 6 02/10/25 05:39 Laboratory Results CBC, BMP, LFTs reviewed PG Care Time/CCT Total # of Minutes Spent Total Time Spent with Patient: Total time spent is greater than 50% in coordination of care (as documented) at patient's floor/unit and/or counseling patient: Coding Level of Care Code 79402 IN/OBS CONSULT LVL 4,60M Diagnoses Chronic systolic CHF (congestive heart failure) I50.22 Colon adenocarcinoma C18.9 Stenosis of iliac vein I87.1 Diabetes mellitus, type II E11.9
[2025-02-10] MEDS ORDERED: DEXTROSE 50% 50 ML SYRINGE IV PRN (11:47)
[2025-02-10] MEDS ORDERED: CARBOHYDRATES FOR HYPOGLYCEMIA PO PRN (11:47)
[2025-02-10] MEDS ORDERED: GLUCOSE 10 TAB/TUBE PO PRN (11:47)
[2025-02-10] MEDS ORDERED: GLUCAGON FOR INJ 1 MG VIAL SQ PRN (11:47)
[2025-02-10] MEDS ORDERED: GLUCOSE 40% GEL 15 GM TUBE PO PRN (11:47)
[2025-02-10] MEDS: SODIUM CHLORIDE 0.9% 1,000 ML IV SCH (12:05)
[2025-02-10] MEDS: DOCUSATE SODIUM 100 MG CAP PO SCH (12:05)
--- NOTE | 2025-02-10 12:18 | Anesthesiology Progress Note ---
Date of Service February 10, 2025 Anesthesia Post Procedure Vital Signs Vital Signs: Temp Pulse Pulse Resp BP Pulse Ox O2 Del Method 02/10/25 11:28 36.3 C L 58 L 18 115/71 93 Room Air 02/10/25 10:30 67 12 108/56 L 94 Room Air 02/10/25 10:15 36.4 C L 67 16 111/63 93 Room Air 02/10/25 10:05 65 12 101/63 93 Room Air 02/10/25 09:55 66 12 105/66 95 Room Air 02/10/25 09:45 68 12 104/72 96 Room Air 02/10/25 09:35 62 12 108/58 L 99 Oxymask 02/10/25 09:25 36.2 C L 62 16 95/57 L 96 Oxymask 02/10/25 05:39 36.8 C 64 20 130/73 97 Room Air O2 Flow Rate 02/10/25 11:28 02/10/25 10:30 02/10/25 10:15 02/10/25 10:05 02/10/25 09:55 02/10/25 09:45 02/10/25 09:35 3 02/10/25 09:25 6 02/10/25 05:39 Pain Intensity Penis: Pain Intensity: 3 Transfer of Care Handoff Completed per policy Notes Mental Status: alert / awake / arousable Patient Amnestic to Procedure: Yes Nausea / Vomiting: adequately controlled Pain: adequately controlled Airway Patency, RR, SpO2: stable & adequate BP & HR: see Notes below Hydration State: stable & adequate Anesthetic Complications: no major complications apparent and Pt Satisfied with anesthetic care Notes: pt noted with n/o arrhythmia. hemodynamically stable otherwise. pt to telemetry floor for continued monitoring.
[2025-02-10] MEDS: LEVOTHYROXINE SODIUM 175 MCG TABLET PO SCH (12:34)
[2025-02-10] MEDS: POTASSIUM CHLORIDE 10 MEQ TABCR PO SCH (12:34)
[2025-02-10] MEDS: GABAPENTIN 300 MG CAP PO SCH (14:06)
[2025-02-10] MEDS: INSULIN ASPART PER UNIT CHARGE SC SCH (16:44)
[2025-02-10] MEDS: carvediloL 6.25 MG TAB PO SCH (21:33)
--- NOTE | 2025-02-11 08:12 | Urology Progress Note ---
Date of Service February 11, 2025 Assessment & Plan (1) BPH (benign prostatic hyperplasia): Plan: - Pt POD#1 s/p Greenlight Laser Photoselective Vaporization of the Prostate, Greenlight Laser Enucleation of the Prostate with Dr. Martinez - Doing well, progressing as expected - Afebrile, stable vitals - Tolerating diet - 3 way Steele catheter draining clear urine with CBI on slow - CBI clamped during exam, nursing aware - will reassess later this AM - Maintain Steele catheter at discharge - Appreciate assistance from hospital medicine with medical management - Anticipate home with Steele catheter later today presuming urine appropriate and he continues to progress as expected - Will continue course of antibiotics post-operatively - Okay to resume anticoagulation today - Expected clinical course reviewed, all questions answered - Will arrange outpatient follow-up with our service for voiding trial and path review Admission and Anticipated Discharge Date Admission Date: February 10, 2025 Subjective Patient seen and examined at bedside this morning. He is awake and sitting up in bed. No acute issues overnight. Denies pain. Tolerating diet. Steele draining clear yellow with CBI on slow. CBI clamped during interview, nursing aware. No fever or chills. Review of Systems 2 Constitutional: as per Subjective / HPI Genitourinary: + as per Subjective / HPI Physical Exam Constitutional: well developed and well nourished; no acute distress Respiratory: normal respiratory effort; no respiratory distress and no labored breathing Gastrointestinal (Abdomen): Inspection/Auscultation: abdomen normal to inspection Musculoskeletal: Head/Neck/Chest: normocephalic Neurologic: moves all extremities and awake Psychiatric: Orientation: alert and oriented x 3 Genitourinary: Steele draining clear yellow with CBI on slow, CBI clamped during exam Results & Data Vital Signs (Past 12 Hours) Vital Signs Temp Pulse Pulse Resp BP Pulse Ox O2 Del Method 02/11/25 07:52 36.6 C 54 L 18 134/72 97 Room Air 02/11/25 07:26 51 L 02/11/25 05:49 112/68 02/11/25 02:45 36.2 C L 57 L 18 96/55 L 96 Room Air, CPAP 02/10/25 22:59 36.9 C 83 18 99/61 L 92 Room Air 02/10/25 22:25 67 PG Care Time/CCT Total # of Minutes Spent Total Time Spent with Patient: Total time spent is greater than 50% in coordination of care (as documented) at patient's floor/unit and/or counseling patient: Coding Level of Care Code None Diagnoses BPH (benign prostatic hyperplasia) N40.0
[2025-02-11] MEDS ORDERED: FINASTERIDE 5 MG TAB PO SCH (09:00)
[2025-02-11] MEDS ORDERED: BUMETANIDE 1 MG TAB PO SCH (09:00)
[2025-02-11] MEDS: ATORVASTATIN 40 MG TAB PO SCH (09:39)
[2025-02-11] MEDS: FERROUS SULFATE 325 MG TAB PO SCH (09:40)
[2025-02-11] MEDS: LEVOTHYROXINE SODIUM 175 MCG TABLET PO SCH (09:40)
[2025-02-11] MEDS: CHOLECALCIFEROL 25 MCG (1000 UNITS) TAB PO SCH (09:40)
[2025-02-11] MEDS: TAMSULOSIN HCL 0.4 MG CAP PO SCH (09:40)
[2025-02-11] MEDS: LEVOTHYROXINE SODIUM 25 MCG TABLET PO SCH (09:40)
[2025-02-11] MEDS: APIXABAN 5 MG TABLET PO SCH (10:05)
[2025-02-11 10:21] LABS: Basophils # (auto) 0.02 K/uL (0.00-0.20); Basophils % (auto) 0.2 %; Eosinophils # (auto) 0.04 K/uL (0.00-0.50); Eosinophils % (auto) 0.3 %; Hematocrit (blood only) 36.3 % (42.0-52.0); Hemoglobin 11.6 g/dl (14.0-18.0); Immature Granulocytes # (auto) 0.06 K/uL (0.01-0.20); Immature Granulocytes % (auto) 0.5 %; Lymphocytes # (auto) 1.57 K/uL (1.20-3.40); Lymphocytes % (auto) 13.6 %; Mean Corpuscular Hemoglobin 28.5 pg (25.0-34.0); Mean Corpuscular Volume 89.2 fL (80.0-100.0); Monocytes # (auto) 0.68 K/uL (0.11-0.59); Monocytes % (auto) 5.9 %; Neutrophils # (auto) 9.14 K/uL (1.40-6.50); Neutrophils % (auto) 79.5 %; Platelet Count 155 K/uL (130-400); RDW Coefficient of Variation 15.9 % (11.5-14.5); RDW Standard Deviation 51.9 fL (36.4-46.3); Red Blood Count 4.07 M/uL (4.70-6.10); White Blood Count 11.51 K/ul (4.8-10.8)
[2025-02-11 10:25] LABS: BUN Creatinine Ratio 23.1 (10-20); Calcium 8.3 mg/dl (8.6-10.3); Creatinine Clr Calc Pharmacy 107.5 ml/min; Potassium 3.7 mmol/L (3.5-5.1)
--- NOTE | 2025-02-11 10:45 | Hospitalist Progress Note ---
Date of Service February 11, 2025 Assessment & Plan (1) Chronic systolic CHF (congestive heart failure): (2) Colon adenocarcinoma: (3) Stenosis of iliac vein: (4) Diabetes mellitus, type II: Plan This patient is a 64-year-old male with a history of HTN, HLD, dilated aortic root and ascending TAA, resolved ischemic cardiomyopathy, small vessel CAD, colon cancer with liver metastases s/p chemotherapy and radiation, now with likely recurrence, CKD stage III, diet-controlled DM 2,cervical myelopathy with neuropathy, hypothyroidism, BPH with LUTS, JOSE on CPAP, PAD, PRANAV, and DVT, iliac vein stenoses s/p bilateral iliac vein stents on Eliquis, nephrolithiasis, history of gastric bypass surgery, iron deficiency anemia, and vitamin D deficiency who is here being managed postoperatively from a greenlight laser photo selective vaporization and enucleation of the prostate. A Bosch catheter is in place. The hospital service was consulted for medical management. #Chronic HFimHF/HTN/HLD/small vessel CAD/PAD-patient is stable at this time, blood pressures are low normal postoperatively, asymptomatic and now normalized. DOing well post-op -no arrhythmias on telemetry - Holding home aspirin and Eliquis but can resume on the morning of 02/11 now on discharge - Continue home carvedilol with hold parameters, ok to resume Entresto/Bumex/KCl - Continue home atorvastatin #Recurrent colon cancer with metastases to the liver-is s/p previous chemotherapy, hemicolectomy, and radiation. Now with rising CEA and Signatera test indicating likely recurrence. Alkaline phosphatase mildly elevated on recent chemistries may indicate issue with the liver - Follow-up with oncology after discharge-plans for possible repeat chemotherapy treatment #Diet-controlled DM2-he does not take medications for this at home - f/u with PCP #Hypothyroidism-recent TSH normal at 1.0 - Continue home levothyroxine #Cervical myelopathy with neuropathy-no acute issues, is s/p cervical discectomy and fusion in the past, has chronic neuropathy in the hands and feet - Continue home gabapentin and as needed diazepam #CKD stage III-no acute issues, creatinine at baseline - Renally dose medications when necessary, avoid nephrotoxins -f/u with PCP #JOSE on CPAP -continue CPAP from home #BPH with LUTS/history of nephrolithiasis-here status post greenlight laser therapy with removal of adenoma. Bosch catheter in place hooked to CBI now turned off, doing well, pain controlled, no bleeding - Urology managing postoperative care - continue Cipro for empiric antibiotic therapy on discharge - Follow-up pathology when available as outpt - Can stop home finasteride but continue Flomax for now as per my d/w Urology - Bosch catheter to remain in for 5 to 7 days and f/u in Urology office or TOV - Pyridium and oxybutynin as needed #Iron deficiency anemia/history of gastric bypass surgery-gastric bypass surgery contributing to anemia. Hemoglobin mildly low at 11. B12 recently checked and normal. Hgb stable POD#1 - continue home ferrous sulfate - Follow CBC with PCP #Vitamin D deficiency-no acute issues - continue home vitamin D supplementation DVT prophylaxis-SCDs, resume Eliquis on the a.m. of 02/11 Disposition-dc to home, discussed care with MOOKIE Ho Admission and Anticipated Discharge Date Admission Date: February 10, 2025 Subjective Doing well today, no complaints. No pain Physical Exam Constitutional: WD/WN, vitals as above Neck: trachea midline, no thyromegaly Respiratory: normal respiratory effort, lungs clear to auscultation Cardiovascular: Rate/Rhythm: regular rate and regular rhythm Extremities: + edema (Trace pitting edema bilaterally) Chest (Breasts): Chest: normal inspection of chest Gastrointestinal (Abdomen): normal bowel sounds, soft, nontender, no hepatosplenomegaly Musculoskeletal: Extremities: extremities normal to inspection; no cyanosis and no clubbing Skin: no rashes, warm and dry Neurologic: moves all extremities and awake; no focal motor deficits Psychiatric: A+Ox3, euthymic affect Genitourinary: Bosch cath with clear yellow urine Lymphatic: no lymphedema Results & Data Results & Data Vital Signs (Past 12 Hours) Vital Signs Temp Pulse Pulse Resp BP Pulse Ox O2 Del Method 02/11/25 07:52 36.6 C 54 L 18 134/72 97 Room Air 02/11/25 07:26 51 L 02/11/25 05:49 112/68 02/11/25 02:45 36.2 C L 57 L 18 96/55 L 96 Room Air, CPAP 02/10/25 22:59 36.9 C 83 18 99/61 L 92 Room Air Laboratory Results CBC, BMP reviewed PG Care Time/CCT Total # of Minutes Spent Total Time Spent with Patient: Total time spent is greater than 50% in coordination of care (as documented) at patient's floor/unit and/or counseling patient: Coding Level of Care Code 25206 SUB INP/OBS CARE 2/35MIN Diagnoses Chronic systolic CHF (congestive heart failure) I50.22 Colon adenocarcinoma C18.9 Stenosis of iliac vein I87.1 Diabetes mellitus, type II E11.9
--- NOTE | 2025-02-11 11:31 | Discharge Summary ---
Date of Service February 11, 2025 Admission HPI Per Admitting Provider Patient with BPH here for Greenlight Laser Photoselective Vaporization of the Prostate, Greenlight Laser Enucleation of the Prostate with Dr. Martinez Principal Diagnosis BPH Discharge Exam Constitutional well developed and well nourished; no acute distress Respiratory normal respiratory effort; no respiratory distress and no labored breathing Gastrointestinal (Abdomen) Inspection/Auscultation: abdomen normal to inspection Musculoskeletal Head/Neck/Chest: normocephalic Neurologic moves all extremities and awake Psychiatric Orientation: alert and oriented x 3 Genitourinary Steele draining clear yellow Discharge Data Allergies Allergy/AdvReac Type Severity Reaction Status Date / Time aprepitant [From Emend] AdvReac Intermediate Back Pain Verified 02/10/25 05:45 fosaprepitant [From Emend] AdvReac Intermediate Back Pain Verified 02/10/25 05:45 piperacillin [From Zosyn] AdvReac Intermediate fever and Verified 02/10/25 05:45 chills tazobactam [From Zosyn] AdvReac Intermediate fever and Verified 02/10/25 05:45 chills Consultations 02/10/25 06:44 Consult Hospitalist Routine Procedures Performed Operation Date: 02/10/25 07:00 Actual Procedures p PVP Greenlight Laser, Photoselective Vaporization of the Prostate Using the Greenlight Laser, Laser Enucleation(Not Applicable) - Rex Martinez, DO Hospital Course (1) BPH (benign prostatic hyperplasia): - Pt POD#1 s/p Greenlight Laser Photoselective Vaporization of the Prostate, Greenlight Laser Enucleation of the Prostate with Dr. Martinez - Doing well, progressing as expected - Afebrile, stable vitals - Tolerating diet - 3 way Steele catheter draining clear urine with CBI on slow - CBI clamped during exam, nursing aware - will reassess later this AM - Maintain Steele catheter at discharge - Appreciate assistance from hospital medicine with medical management - Anticipate home with Steele catheter later today presuming urine appropriate and he continues to progress as expected - Will continue course of antibiotics post-operatively - Okay to resume anticoagulation today - Expected clinical course reviewed, all questions answered - Will arrange outpatient follow-up with our service for voiding trial and path review Total Time Total Time Spent Total Time Spent (In Minutes): 25 Discharge Plan Discharge Items Patient Disposition: Home - Self-Care Reason For Visit: Benign Prostatic Hyperplasia Without Lower Urinary Discharge Diagnosis: Benign prostatic hyperplasia Activity: Per Instructions section Lifting: No more than 25 pounds Bathing Comment: Okay to shower after discharge, no tub bath or soaking Sexual Activity: Wait until after follow-up appointment Exercise/Sports: Wait until after follow-up appointment Non-emergency contact: Urologist Call non-emergency contact if: your pain is not controlled and you have a fever Follow-up/Referrals: Tatum Red DO [Primary Care Provider] - Rex Martinez DO [Physician] - 02/21/25 8:30 am [facility],Nurse [FAKE FOR SCHEDULES] - 02/14/25 8:30 am Diet: Carb Consistent or DM2 Addtl Attending Provider Instructions: Please take all medications as prescribed and keep all follow-ups as scheduled. Please call our office at [phone] with any questions, concerns or need to reschedule appointments for any reason. We are happy to assist you. You can restart your Apixaban today. Continue Flomax until discussed at follow-up. You can discontinue Finasteride. Tips for your recovery at home: Dont be alarmed by brownish or reddish blood or clots in your urine. This is a result of the procedure. This may occur off and on for weeks to months after the procedure but should continue to improve. Drink plenty of fluids during the day (enough to keep your urine very light colored). This will help keep a healthy flow of urine. Do not lift >25 lbs until your followup Avoid constipation. Please use a stool softener (Colace) for the first two weeks after your procedure Be sure to finish the antibiotics as prescribed. If you go home with a catheter, please wash tubing where it enters your body twice daily with mild soap (Dove or Dial). Once your catheter is removed, expect some blood in your urine and some burning when you urinate. You should have an appointment to have this removed, if you do not please call our office to arrange. Pending Studies at Discharge: Yes (pathology) Stand-Alone Forms: My [employer], Smoking Cessation Medications and DC Order Prescriptions: New phenazopyridine [Pyridium] 200 mg tablet 200 mg PO Q8H PRN (Reason: pain) Qty: 10 0RF ciprofloxacin HCl 500 mg tablet 500 mg PO BID Qty: 14 0RF oxybutynin chloride 5 mg tablet 5 mg PO Q8H PRN (Reason: bladder spasms) Qty: 30 0RF Continued aspirin 81 mg tablet,delayed release (DR/EC) 81 mg PO QAM Eliquis 5 mg tablet 5 mg PO BID Qty: 180 2RF bumetanide 0.5 mg tablet 0.5 mg PO QAM Qty: 90 3RF atorvastatin [Lipitor] 80 mg tablet 80 mg PO QAM Qty: 100 1RF gabapentin [Neurontin] 300 mg capsule 300 mg PO TID Qty: 360 1RF carvedilol 6.25 mg tablet 6.25 mg PO BID Qty: 180 3RF Rx Instructions: must administer with a meal/food potassium chloride 10 mEq capsule, extended release 10 meq PO QAM Qty: 90 3RF Entresto 24-26 mg tablet 1 tab PO BID Qty: 200 3RF diazepam 5 mg tablet 5 mg PO TID PRN (Reason: Anxiety) Qty: 30 0RF levothyroxine 175 mcg tablet 175 mcg PO QAM Qty: 100 1RF Centrum Silver 0.4-300-250 mg-mcg-mcg tablet 1 tab PO QAM cholecalciferol (vitamin D3) 50 mcg (2,000 unit) capsule 2,000 unit PO QAM ferrous sulfate 325 mg (65 mg iron) tablet 325 mg PO QAM levothyroxine 25 mcg tablet 25 mcg PO QAM Rx Instructions: take with 175mcg to equal 200mcg daily tamsulosin [Flomax] 0.4 mg capsule 0.4 mg PO QAM Discontinued finasteride [Proscar] 5 mg tablet 5 mg PO QAM Qty: 90 3RF Discharge Orders: Discharge Order (Routine); Ordered 02/11/25 Ordered By: Susan Ho Admission Data Admit Date/Time: 02/10/25 06:44 Attending Provider: Rex Martinez Admit Provider: Rex Martinez Primary Care Provider: Tatum Red Other Providers: Janet Saenz Other Interventions: Discharge Summary Assessment (RN) Last Done: 02/11/25 13:31 Coding Level of Care Code 51290 IN/OBS DISCH 30 MIN/LESS Diagnoses BPH (benign prostatic hyperplasia) N40.0
[2025-02-11 11:35] VITALS: BP 116/67; PULSE 57; RESP 20; TEMP 98.1; O2SAT 93
[2025-02-11] MEDS: HEPARIN 100 UNIT/ML 5ML FLUSH FLUSH PRN (11:56)
== END 2025-02-11 14:40 | disposition home or self-care (01) ==
LOC: ASU 05:30 → 2N 05:30